=== PATIENT | female | born 1935 | race Caucasian/White ===

== ENCOUNTER 2018-03-01 12:49 | Emergency (ER) | payer MEDICARE, OTHER ==
--- NOTE | 2018-03-01 13:14 | ERPHSYRPT ---
- History of Present Illness Time Seen by Provider: 03/01/18 13:14 Source: patient Exam Limitations: no limitations Patient Subjective Stated Complaint: yesterday pt was leaning over to do something and states she heard adn felt a pop and now her left rib area is hurting, Triage Nursing Assessment: pt alert, resp easy, skin w/d/p. no increase of sob, no brusing or abrasions noted Physician History: The patient is an 82-year-old female with her daughter complaining that she felt well a pop in her left rib yesterday when she bent over to tie her shoe. She now has pain in her left rib area. It hurts to cough or take a deep breath. She is not short of breath. 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 Her past medical history is significant for rib fractures, A. fib, hypothyroidism, and CHF. Timing/Duration: yesterday Severity: moderate Modifying Factors: Improves With: movement Associated Symptoms: chest pain (rib pain) Allergies/Adverse Reactions: hydrocodone bitartrate [From Vicodin] Allergy (Severe, Verified 03/01/18 13:01) Itching Home Medications: Celecoxib 100 mg [celeBREX 100 MG] 250 mg PO DAILY 12/30/12 [History] Esomeprazole Magnesium [Nexium] 40 mg PO DAILY 12/30/12 [History] Levothyroxine Sodium 150 Mcg [Synthroid 150 Mcg] 150 mcg PO DAILY 12/30/12 [History] Nebivolol HCl 5 MG [Bystolic 5 MG] 5 mg PO DAILY 12/30/12 [History] Warfarin Sodium 5 mg [Coumadin 5 MG] 6 mg PO DAILY 12/30/12 [History] Hx Tetanus, Diphtheria Vaccination/Date Given: Yes Hx Influenza Vaccination/Date Given: Yes Hx Pneumococcal Vaccination/Date Given: Yes Immunizations Up to Date: Yes - Review of Systems Constitutional: No Fever, No Chills Eyes: No Symptoms Ears, Nose, & Throat: No Symptoms Respiratory: No Cough, No Dyspnea Cardiac: Chest Pain Abdominal/Gastrointestinal: No Abdominal Pain, No Nausea, No Vomiting, No Diarrhea Genitourinary Symptoms: No Dysuria Musculoskeletal: Injury, No Back Pain, No Neck Pain Skin: No Rash Neurological: No Dizziness, No Focal Weakness, No Sensory Changes Psychological: No Symptoms Endocrine: No Symptoms Hematologic/Lymphatic: No Symptoms Immunological/Allergic: No Symptoms All Other Systems: Reviewed and Negative - Past Medical History Pertinent Past Medical History: Yes Neurological History: No Pertinent History ENT History: No Pertinent History Cardiac History: Arrhythmia Respiratory History: COPD Endocrine Medical History: Hyperthyroidism Musculoskeletal History: Arthritis GI Medical History: GERD, Hernia History: No Pertinent History Psycho-Social History: No Pertinent History Female Reproductive Disorders: No Pertinent History Other Medical History: BROKEN BACK IN PAST - Past Surgical History Past Surgical History: Yes Neuro Surgical History: No Pertinent History Cardiac: No Pertinent History Respiratory: No Pertinent History Gastrointestinal: Cholecystectomy, Hernia Repair Genitourinary: No Pertinent History Musculoskeletal: Orthopedic Surgery, Other Female Surgical History: Hysterectomy Other Surgical History: THYROID REMOVED. SEVERAL HERNIA REPAIRS. RIGHT KNEE REPLACED. LEFT ARM FRACTURE - Social History Smoking Status: Never smoker Exposure to second hand smoke: No Drug Use: none Patient Lives Alone: No - Female History Hx Last Menstrual Period: post Hx Now: No - Nursing Vital Signs Nursing Vital Signs: Initial Vital Signs Temperature 97.3 F 03/01/18 12:55 Pulse Rate 91 H 03/01/18 12:55 Respiratory Rate 16 03/01/18 12:55 Blood Pressure 178/119 03/01/18 12:55 O2 Sat by Pulse Oximetry 97 03/01/18 12:55 Pain Scale Pain Intensity 5 - Physical Exam General Appearance: no apparent distress, alert Eye Exam: PERRL/EOMI, eyes nml inspection Ears, Nose, Throat Exam: normal ENT inspection, TMs normal, pharynx normal, moist mucous membranes Neck Exam: normal inspection, non-tender, supple, full range of motion Respiratory Exam: normal breath sounds, chest tenderness (left rib pain), lungs clear, No respiratory distress Cardiovascular Exam: regular rate/rhythm, normal heart sounds, normal peripheral pulses Gastrointestinal/Abdomen Exam: soft, normal bowel sounds, No tenderness, No mass Pelvic Exam: not done Rectal Exam: not done Back Exam: normal inspection, normal range of motion, No CVA tenderness, No vertebral tenderness Extremity Exam: normal inspection, normal range of motion, pelvis stable Neurologic Exam: alert, oriented x 3, cooperative, normal mood/affect, nml cerebellar function, nml station & gait, sensation nml, No motor deficits Skin Exam: normal color, warm, dry, No rash Lymphatic Exam: No adenopathy SpO2 Interpretation: normal SpO2: 97 Oxygen Delivery: Room Air - Radiology Exams Chest X-ray Interpretation: Reviewed by me, Teleradiologist Report (per Dr Estrada), Negative Left Ribs X-ray Interpretation: Reviewed by me, Teleradiologist Report (per Dr Estrada), Negative, No Fracture, No Subluxation Ordered Tests: Active Orders 24 hr Category Date Time Status CHEST 2 VIEWS (PA AND LAT) Stat Exams 03/01/18 13:22 Completed RIBS UNILATERAL Stat Exams 03/01/18 13:22 Completed - Progress Counseled pt/family regarding: rad results - Departure Time of Disposition: 14:06 Departure Disposition: Home Clinical Impression: Contusion of rib on left side Condition: Stable Critical Care Time: No Referrals: DAREN JAIN MD [Primary Care Provider] - Additional Instructions: You have left rib pain. The x-ray of your left ribs did not show any fractures or broken bones today. There may be a hairline fracture that doesn't show up on the x-ray today. If you still have pain after 7-10 days, follow-up with your primary medical doctor for a second set of x-rays. Take Percocet one tablet every 4-6 hours as needed for pain. Prescriptions: Oxycodone HCl/Acetaminophen [Percocet 5-325 mg Tablet] 1 each PO Q4-6HPRN PRN # 10 tablet MDD 6 PRN Reason: Pain
--- NOTE | 2018-03-01 14:00 | XRAY ---
Indication: Left anterior pain following injury. Comparison: None 2 views of the left ribs demonstrates osteopenia, moderate multilevel degenerative spondylosis, and moderate left shoulder degenerative arthropathy. No other bony, articular, or soft tissue abnormalities. Chest reported separately.
--- NOTE | 2018-03-01 14:04 | XRAY ---
Indication: Left anterior chest pain following injury. Comparison: None PA/lateral chest demonstrates scattered bilateral fibrosis/scarring, cardiomegaly, tortuous descending aorta, and small hiatal hernia. No other cardiopulmonary abnormalities. Bony thorax intact with mild osteopenia, moderate degenerative changes, and remote T12 superior endplate fracture. Impression: Nonacute chest with chronic features.
[2018-03-01 14:45] VITALS: BP 141/81; PULSE 65; O2SAT 95
== END 2018-03-01 14:45 | disposition home or self-care (01) ==
LOC: ED 12:49
DX: S20.212A Contusion of left front wall of thorax, initial encounter (principal); W18.39XA Other fall on same level, initial encounter; Y93.89 Activity, other specified; Z79.01 Long term (current) use of anticoagulants; Z79.899 Other long term (current) drug therapy
CPT/HCPCS: 71046; 71100; 99283

== ENCOUNTER 2018-06-03 13:59 | Emergency (ER) | payer MEDICARE, OTHER ==
[2018-06-03] MEDS ORDERED: SUBLIMAZE 100 MCG/2 ML IV ONE ×2 (15:06→18:03)
[2018-06-03] MEDS ORDERED: Zofran 4 MG/2 ML VIAL IV ONE (15:06)
--- NOTE | 2018-06-03 15:11 | ERPHSYRPT ---
- History of Present Illness Time Seen by Provider: 06/03/18 15:02 Historian: patient Exam Limitations: no limitations Physician History: Pt started c/o left flank pain, nausea 2 days ago, denies abdominal pain, chest pain, cough, SOB, diarrhea, urinary complaints or fever, chills. She denies fall , injury to her ribs. Timing/Duration: day(s) (2) Activities at Onset: none Quality: sharpness Abdominal Pain Onset Location: flank (left) Pain Radiation: no radiation Severity of Pain-Max: severe Severity of Pain-Current: severe Modifying Factors: Improves With: nothing Associated Symptoms: nausea Previous symptoms: no prior history Allergies/Adverse Reactions: hydrocodone bitartrate [From Vicodin] Allergy (Severe, Verified 06/03/18 15:14) Itching Home Medications: Celecoxib 100 mg [celeBREX 100 MG] 250 mg PO DAILY 12/30/12 [History] Esomeprazole Magnesium [Nexium] 40 mg PO DAILY 12/30/12 [History] Levothyroxine Sodium 150 Mcg [Synthroid 150 Mcg] 150 mcg PO DAILY 12/30/12 [History] Nebivolol HCl 5 MG [Bystolic 5 MG] 5 mg PO DAILY 12/30/12 [History] Warfarin Sodium 5 mg [Coumadin 5 MG] 6 mg PO DAILY 12/30/12 [History] Albuterol Sulfate Mdi [Proair Hfa MDI] 8.5 gm IH QID 06/03/18 [History] Budesonide/Formoterol Fumarate [Symbicort 160-4.5 Mcg Inhaler] 10.2 gm IH BID [History] Furosemide 40 mg [Lasix 40 MG] 20 mg PO BID 06/03/18 [History] Montelukast Sodium 10 mg [Singulair 10 MG] 10 mg PO DAILY 06/03/18 [History] Pravastatin Sodium 20 mg PO HS 06/03/18 [History] Hx Tetanus, Diphtheria Vaccination/Date Given: Yes Hx Influenza Vaccination/Date Given: Yes Hx Pneumococcal Vaccination/Date Given: Yes - Review of Systems Constitutional: No Symptoms Ears, Nose, & Throat: No Symptoms Respiratory: No Symptoms Cardiac: No Symptoms Abdominal/Gastrointestinal: Nausea Genitourinary Symptoms: Flank Pain (left) Musculoskeletal: No Symptoms Skin: No Symptoms Neurological: No Symptoms All Other Systems: Reviewed and Negative - Past Medical History Pertinent Past Medical History: Yes Neurological History: No Pertinent History ENT History: No Pertinent History Cardiac History: Arrhythmia Respiratory History: COPD Endocrine Medical History: Hyperthyroidism Musculoskeletal History: Arthritis GI Medical History: GERD, Hernia History: No Pertinent History Psycho-Social History: No Pertinent History Female Reproductive Disorders: No Pertinent History Other Medical History: BROKEN BACK IN PAST - Past Surgical History Past Surgical History: Yes Neuro Surgical History: No Pertinent History Cardiac: No Pertinent History Respiratory: No Pertinent History Gastrointestinal: Cholecystectomy, Hernia Repair Genitourinary: No Pertinent History Musculoskeletal: Orthopedic Surgery, Other Female Surgical History: Hysterectomy Other Surgical History: THYROID REMOVED. SEVERAL HERNIA REPAIRS. RIGHT KNEE REPLACED. LEFT ARM FRACTURE - Social History Smoking Status: Never smoker Exposure to second hand smoke: No Drug Use: none Patient Lives Alone: No - Nursing Vital Signs Nursing Vital Signs: Initial Vital Signs Temperature 98.3 F 06/03/18 15:03 Pulse Rate 78 06/03/18 15:03 Respiratory Rate 22 06/03/18 15:03 Blood Pressure 150/84 06/03/18 15:03 O2 Sat by Pulse Oximetry 93 L 06/03/18 15:03 Pain Scale Pain Intensity 5 - Physical Exam General Appearance: no apparent distress Eye Exam: eyes nml inspection Ears, Nose, Throat Exam: normal ENT inspection, moist mucous membranes Neck Exam: normal inspection, non-tender, supple, No JVD Respiratory Exam: normal breath sounds, lungs clear, airway intact, No chest tenderness, No respiratory distress Cardiovascular Exam: regular rate/rhythm, normal heart sounds, normal peripheral pulses, No murmur Gastrointestinal/Abdomen Exam: soft, normal bowel sounds, No tenderness, No distention, No mass, No guarding, No ecchymosis, No pulsatile mass, No rebound, No hernia, No organomegaly Back Exam: normal inspection, CVA tenderness (left, mod. severe), No vertebral tenderness, No rash Extremity Exam: normal inspection, pelvis stable Neurologic Exam: alert, oriented x 3, normal mood/affect Skin Exam: normal color, warm, dry, No rash, No petechiae, No cyanosis Lymphatic Exam: No adenopathy SpO2 Interpretation: normal O2 Delivery: Room Air - Course Nursing assessment & vital signs reviewed: Yes EKG Interpreted by Me: RATE (76/min), NORMAL AXIS, NORMAL INTERVALS, NORMAL QRS , Non-specific ST Changes - Radiology Exams Chest X-ray Interpretation: Interpreted by me, Negative - CT Exams Abdomen/Pelvis CT Interpretation: Tele-radiologist Report, Other (left perinephric strainding, without nephrolithiasis or hydronephrosis, swlling of the pancreatic tale) Ordered Tests: Active Orders 24 hr Category Date Time Status EKG-ER Only STAT Care 06/03/18 15:06 Active IV Insertion STAT Care 06/03/18 15:06 Active ABDOMEN AND PELVIS W/0 CONTRAS [CT] Stat Exams 06/03/18 15:07 Completed CHEST 1 VIEW (PORTABLE) Stat Exams 06/03/18 15:06 Completed CBC W DIFF Stat Lab 06/03/18 15:54 Completed CMP Stat Lab 06/03/18 15:54 Completed CULTURE,URINE Stat Lab 06/03/18 15:22 Received LIPASE Stat Lab 06/03/18 15:54 Completed Lactic Acid Stat Lab 06/03/18 16:52 Completed PROTIME WITH INR Stat Lab 06/03/18 15:54 Completed TROPONIN Q3H Lab 06/03/18 15:54 Completed TROPONIN Q3H Lab 06/03/18 18:15 Ordered TROPONIN Q3H Lab 06/03/18 21:15 Ordered TROPONIN Q3H Lab 06/04/18 00:15 Ordered TROPONIN Q3H Lab 06/04/18 03:15 Ordered UA W/RFX UR CULTURE Stat Lab 06/03/18 15:22 Completed Medication Summary Generic Name Dose Route Start Last Admin Trade Name Freq PRN Reason Stop Dose Admin Acetaminophen/Codeine Phosphate 5 ml 06/03/18 17:38 Tylenol W/ Codeine 5 Ml Ud Cup PO 06/03/18 17:39 STAT ONE Sodium Chloride 1,000 mls @ 100 mls/hr 06/03/18 15:15 06/03/18 16:13 Sodium Chloride 0.9% 1000 Ml IV 07/03/18 15:14 100 mls/hr .Q10H BETO Administration Discontinued Medications Generic Name Dose Route Start Last Admin Trade Name Freq PRN Reason Stop Dose Admin Fentanyl Citrate 50 mcg 06/03/18 15:06 06/03/18 16:12 Sublimaze 100 Mcg/2 Ml IV 04/07/19 15:07 50 mcg STAT ONE Administration Fentanyl Citrate Confirm 06/03/18 16:05 Sublimaze 100 Mcg/2 Ml Administered 06/03/18 16:06 Dose 100 mcg .ROUTE .STK-MED ONE Ceftriaxone Sodium/Dextrose 1 g in 50 mls @ 100 mls/hr 06/03/18 16:43 17:02 Rocephin 1 Gm-D5w 50 Ml Bag IV 06/03/18 17:12 100 ml/hr STAT STA 100 mls/hr Administration Ceftriaxone Sodium/Dextrose Confirm 06/03/18 16:54 Rocephin 1 Gm-D5w 50 Ml Bag Administered 06/03/18 16:55 Dose 1 g in 50 mls @ ud IV .STK-MED ONE Ondansetron HCl 4 mg 06/03/18 15:06 06/03/18 16:14 Zofran 4 Mg/2 Ml Vial IV 06/03/18 15:07 4 mg STAT ONE Administration Ondansetron HCl Confirm 06/03/18 16:04 Zofran 4 Mg/2 Ml Vial Administered 06/03/18 16:05 Dose 4 mg .ROUTE .STK-MED ONE Lab/Rad Data: Laboratory Result Diagrams 06/03/18 15:54 06/03/18 15:54 Laboratory Results 06/03/18 06/03/18 06/03/18 Range/Units 16:52 15:54 15:54 WBC (4.0-10.5) K/mm3 RBC (4.1-5.4) M/mm3 Hgb (12.0-16.0) gm/dl Hct (35-47) % MCV (78-100) fl MCH (26-32) pg MCHC (32-36) g/dl RDW (11.5-14.0) % Plt Count (150-450) K/mm3 MPV (6-9.5) fl Gran % (36.0-66.0) % Eos # (Auto) (0-0.5) Absolute Lymphs (auto) (1.0-4.6) Absolute Monos (auto) (0.0-1.3) Lymphocytes % (24.0-44.0) % Monocytes % (0.0-12.0) % Eosinophils % (0.00-5.0) % Basophils % (0.0-0.4) % Absolute Granulocytes (1.4-6.9) Basophils # (0-0.4) PT 26.6 H (9.95-12.35) SECONDS INR 2.27 (0.8-3.0) Sodium (137-145) mmol/L Potassium (3.5-5.1) mmol/L Chloride (98-107) mmol/L Carbon Dioxide (22-30) mmol/L Anion Gap (5-15) MEQ/L BUN (7-17) mg/dL Creatinine (0.52-1.04) mg/dL Estimated GFR ML/MIN Glucose (74-106) mg/dL Lactic Acid 1.6 (0.4-2.0) Calcium (8.4-10.2) mg/dL Total Bilirubin (0.2-1.3) mg/dL AST (14-36) U/L ALT (0-35) U/L Alkaline Phosphatase (38-126) U/L Troponin I < 0.012 (0.000-0.034) ng/mL Serum Total Protein (6.3-8.2) g/dL Albumin (3.5-5.0) g/dL Lipase (23-300) U/L Urine Color (YELLOW) Urine Appearance (CLEAR) Urine pH (5-6) Ur Specific [place] (1.005-1.025) Urine Protein (Negative) Urine Ketones (NEGATIVE) Urine Blood (0-5) [place]/ul Urine Nitrite (NEGATIVE) Urine Bilirubin (NEGATIVE) Urine Urobilinogen (0-1) mg/dL Ur Leukocyte Esterase (NEGATIVE) Urine WBC (Auto) (0-5) /HPF Urine RBC (Auto) (0-2) /HPF U Epithel Cells (Auto) (FEW) /HPF Urine Bacteria (Auto) (NEGATIVE) /HPF Urine Mucus (Auto) (NEGATIVE) /HPF Urine Culture Reflexed (NO) Urine Glucose (NEGATIVE) mg/dL 06/03/18 06/03/18 06/03/18 Range/Units 15:54 15:54 15:22 WBC 16.1 H (4.0-10.5) K/mm3 RBC 4.65 (4.1-5.4) M/mm3 Hgb 14.7 (12.0-16.0) gm/dl Hct 44.7 (35-47) % MCV 96.1 (78-100) fl MCH 31.6 (26-32) pg MCHC 32.9 (32-36) g/dl RDW 13.5 (11.5-14.0) % Plt Count 206 (150-450) K/mm3 MPV 10.6 H (6-9.5) fl Gran % 87.2 H (36.0-66.0) % Eos # (Auto) 0.02 (0-0.5) Absolute Lymphs (auto) 0.87 L (1.0-4.6) Absolute Monos (auto) 1.14 (0.0-1.3) Lymphocytes % 5.4 L (24.0-44.0) % Monocytes % 7.1 (0.0-12.0) % Eosinophils % 0.1 (0.00-5.0) % Basophils % 0.2 (0.0-0.4) % Absolute Granulocytes 13.99 H (1.4-6.9) Basophils # 0.03 (0-0.4) PT (9.95-12.35) SECONDS INR (0.8-3.0) Sodium 135 L (137-145) mmol/L Potassium 4.3 (3.5-5.1) mmol/L Chloride 99 (98-107) mmol/L Carbon Dioxide 28 (22-30) mmol/L Anion Gap 12.1 (5-15) MEQ/L BUN 14 (7-17) mg/dL Creatinine 0.63 (0.52-1.04) mg/dL Estimated GFR > 60.0 ML/MIN Glucose 94 (74-106) mg/dL Lactic Acid (0.4-2.0) Calcium 9.4 (8.4-10.2) mg/dL Total Bilirubin 1.90 H (0.2-1.3) mg/dL AST 24 (14-36) U/L ALT 10 (0-35) U/L Alkaline Phosphatase 64 (38-126) U/L Troponin I (0.000-0.034) ng/mL Serum Total Protein 8.1 (6.3-8.2) g/dL Albumin 4.3 (3.5-5.0) g/dL Lipase 302 H (23-300) U/L Urine Color DARK YELLOW (YELLOW) Urine Appearance SLIGHTLY CLOUDY (CLEAR) Urine pH 6.0 (5-6) Ur Specific [place] 1.023 (1.005-1.025) Urine Protein 100 (Negative) Urine Ketones SMALL (NEGATIVE) Urine Blood MODERATE (0-5) [place]/ul Urine Nitrite POSITIVE (NEGATIVE) Urine Bilirubin NEGATIVE (NEGATIVE) Urine Urobilinogen 4 (0-1) mg/dL Ur Leukocyte Esterase TRACE (NEGATIVE) Urine WBC (Auto) 26-50 (0-5) /HPF Urine RBC (Auto) 16-25 (0-2) /HPF U Epithel Cells (Auto) RARE (FEW) /HPF Urine Bacteria (Auto) PACKED (NEGATIVE) /HPF Urine Mucus (Auto) SLIGHT (NEGATIVE) /HPF Urine Culture Reflexed YES (NO) Urine Glucose NEGATIVE (NEGATIVE) mg/dL - Progress Progress: improved Progress Note: 06/03/18 17:39 Pt states, improved, nausea resolved pain subsided, not febrile, she was given iv saline bolus and Rocephin, called Dr Campos, discussed this case with him with her current condition, he agreed to discharge her and follow up with Dr Jain in 2-3 days, advised liquid diet, rest x 2-3 barton. Discussed with : Andres Will see patient in: office Counseled pt/family regarding: lab results, diagnosis, need for follow-up, rad results - Departure Departure Disposition: Home Clinical Impression: Pyelonephritis Condition: Stable Critical Care Time: No Referrals: DAREN JAIN MD [Primary Care Provider] - Instructions: Urinary Tract Infection, Adult (DC) Additional Instructions: Rest x 2-3 days, drink plenty of fluids, and follow up with your physician in 2- 3 days, return if severe pain, vomiting, fever> 102 F! Prescriptions: Ondansetron ODT 4 MG [Zofran Odt 4 mg] 4 mg PO Q6H PRN PRN #10 tab.rapdis PRN Reason: Nausea/Vomiting Acetaminophen with Codeine [Tylenol with Codeine #3 Tablet] 1 each PO Q6H PRN # 10 tablet PRN Reason: Pain Cephalexin Mh 500 mg [Keflex 500 mg] 500 mg PO Q6H 7 Days #28 capsule
[2018-06-03] MEDS ORDERED: Sodium Chloride 0.9% 1000 ML 1,000 ML IV SCH (15:15)
[2018-06-03 15:32] LABS: Appearance SLIGHTLY CLOUDY (CLEAR); Bacteria PACKED /HPF (NEGATIVE); Bilirubin NEGATIVE (NEGATIVE); Blood MODERATE Ery/ul (0-5); Epithelial Cells RARE /HPF (FEW); Glucose NEGATIVE (NEGATIVE); Ketones SMALL (NEGATIVE); Leukocyte Esterase TRACE (NEGATIVE); Mucus SLIGHT /HPF (NEGATIVE); Nitrite POSITIVE (NEGATIVE); Protein,Urine Dip 100 (Negative); Specific Gravity 1.023 (1.005-1.025); Urobilinogen 4 mg/dL (0-1); WBC 26-50 /HPF (0-5)
[2018-06-03 15:56] LABS: BASOPHIL % 0.2 % (0.0-0.4); Basophil (Absolute #) 0.03 (0-0.4); Eosinophil % 0.1 % (0.00-5.0); Eosinophil (Absolute #) 0.02 (0-0.5); Granulocyte Absolute (ANC) 13.99 (1.4-6.9); Granulocytes % 87.2 % (36.0-66.0); Hematocrit 44.7 % (35-47); Hemoglobin 14.7 gm/dl (12.0-16.0); Lymphocyte (Absolute #) 0.87 (1.0-4.6); Lymphocytes % 5.4 % (24.0-44.0); Mean Cell Volume 96.1 fl (78-100); Mean Corpuscular Hemoglobin 31.6 pg (26-32); Mean Corpuscular Hgb Concent. 32.9 g/dl (32-36); Mean Platelet Volume 10.6 fl (6-9.5); Monocyte (Absolute #) 1.14 (0.0-1.3); Monocytes % 7.1 % (0.0-12.0); Platelet Count 206 K/mm3 (150-450); Red Blood Count 4.65 M/mm3 (4.1-5.4); Red Cell Distribution Width 13.5 % (11.5-14.0); White Blood Count 16.1 K/mm3 (4.0-10.5)
[2018-06-03 16:01] LABS: INR 2.27 (0.8-3.0); PROTIME 26.6 SECONDS (9.95-12.35)
[2018-06-03] MEDS ORDERED: Zofran 4 MG/2 ML VIAL ONE (16:04)
[2018-06-03] MEDS ORDERED: SUBLIMAZE 100 MCG/2 ML ONE ×2 (16:05→18:07)
[2018-06-03] MEDS ORDERED: Sodium Chloride 0.9% 1000 ML 1,000 ML ONE (16:05)
[2018-06-03 16:07] LABS: ALBUMIN 4.3 g/dL (3.5-5.0); ALKALINE PHOSPHATASE 64 U/L (38-126); ANION GAP 12.1 MEQ/L (5-15); BLOOD UREA NITROGEN 14 mg/dL (7-17); CHLORIDE 99 mmol/L (98-107); Calcium 9.4 mg/dL (8.4-10.2); Carbon Dioxide 28 mmol/L (22-30); Creatinine 1 0.63 mg/dL (0.52-1.04); Glucose 94 mg/dL (74-106); LIPASE 302 U/L (23-300); Potassium 4.3 mmol/L (3.5-5.1); SGOT/AST 24 U/L (14-36); SGPT/ALT 10 U/L (0-35); SODIUM 135 mmol/L (137-145); Total Protein 8.1 g/dL (6.3-8.2)
[2018-06-03] MEDS ORDERED: ROCEPHIN 1 Gm-D5w 50 ml Bag** 1 G/50 ML IVPB IV STA (16:43)
[2018-06-03] MEDS ORDERED: ROCEPHIN 1 Gm-D5w 50 ml Bag** 1 G/50 ML IVPB IV ONE (16:54)
--- NOTE | 2018-06-03 16:55 | XRAY ---
Indication: Abdomen pain. Left flank pain. Multiple contiguous axial images obtained through the abdomen and pelvis without contrast as ordered. Comparison: June 25, 2009. Lung bases demonstrates bibasilar atelectasis/scarring. No infiltrate or effusion. Heart is enlarged. Stable moderate sized hiatal hernia with partial intrathoracic stomach. Noncontrasted stomach and bowel loops appear nonobstructed. Again mild diffuse scattered colonic fecal debris throughout. Previous appendectomy, hysterectomy, and cholecystectomy. Tail of the pancreas demonstrates new peripancreatic stranding favoring pancreatitis. Tiny left colic free fluid. No walled off fluid collection or free air. Remaining liver, spleen, adrenal glands, kidneys, ureters, and bladder appear unremarkable for noncontrast exam. Mild aortoiliac calcifications without AAA. Osseous structures intact again with moderate degenerative changes throughout the spine. Stable mild T12 compression deformity. Again previous ventral hernia repair. The remains midline ventral hernia just inferior to the hernia mesh graft with herniated omental fat and small bowel loop without complications. Impression: 1. New finding acute pancreatitis involving the tail of the pancreas with tiny left colic fluid. 2. Again fecal stasis without obstruction. 3. Stable moderate sized hiatal hernia, lower abdomen ventral hernia, and cardiomegaly. Comment: Preliminary interpretation was made by [facility]. No critical discrepancy. CTDI 23.68
--- NOTE | 2018-06-03 16:56 | XRAY ---
Indication: Abdomen pain. Comparison: March 01, 2018. Portable chest demonstrates stable cardiomegaly, bibasilar fibrosis/scarring, tortuous descending aorta, and hiatal hernia. Bony thorax again demonstrates osteopenia, degenerative changes, and remote T12 compression performed. No new/acute findings. Impression: Stable nonacute chest with chronic features.
[2018-06-03 17:04] VITALS: PULSE 73
[2018-06-03] MEDS ORDERED: TYLENOL W/ CODEINE 5 ML UD CUP PO ONE (17:38)
[2018-06-03] MEDS ORDERED: ZOFRAN ODT 4 MG PO ONE (17:38)
[2018-06-03] MEDS ORDERED: ZOFRAN ODT 4 MG ONE (17:52)
[2018-06-03] MEDS ORDERED: TYLENOL W/ CODEINE 5 ML UD CUP ONE (17:53)
[2018-06-03 18:05] VITALS: BP 133/82; O2SAT 96
== END 2018-06-03 18:41 | disposition home or self-care (01) ==
LOC: ED 13:59
DX: N12 Tubulo-interstitial nephritis, not specified as acute or chronic (principal); J44.9 Chronic obstructive pulmonary disease, unspecified; E05.90 Thyrotoxicosis, unspecified without thyrotoxic crisis or storm; M19.90 Unspecified osteoarthritis, unspecified site; K21.9 Gastro-esophageal reflux disease without esophagitis; Z79.01 Long term (current) use of anticoagulants; Z79.899 Other long term (current) drug therapy
CPT/HCPCS: 36000; 36415; 71045; 74176; 80053; 81001; 83605; 83690; 84484; 85025; 85610; 87077; 87086; 87186; 93005; 96360; 96361; 96365; 96374; 96375; 96376; 99285; J0696; J2405; J3010; Q0162; A9270-GY

== ENCOUNTER 2020-01-09 14:00 | Emergency (ER) | payer MEDICARE, OTHER ==
[2020-01-09 14:13] VITALS: PULSE 88
--- NOTE | 2020-01-09 14:45 | XRAY ---
Indication: Pain following fall. Comparison: None 3 view left wrist demonstrates distal radius comminuted displaced fracture with intra-articular extension. Elsewhere osteopenia, old nonunited ulnar styloid fracture, and degenerative changes of all MCP/IP joints including base 1st metacarpal.
--- NOTE | 2020-01-09 14:59 | ERPHSYRPT ---
- History of Present Illness Time Seen by Provider: 01/09/20 14:20 Source: patient ([id number]) Exam Limitations: no limitations Patient Subjective Stated Complaint: Pt states "I went to step up and there was no hand rails and I fell. I tried to catch myself with my left arm and now my left wrist" Triage Nursing Assessment: PT presented alert and oriented X 3, skin pwd. Pt ambulates with an uprigth steady gait, able to speak in clear full sentences. Pt has tenderness noted to left wrist, CSM X 4 Physician History: Patient is a 84-year-old female presents to our ED with complaints of left wrist pain. Patient states she was at her friend's house. She was descending steps. There were no hand rails. Patient lost her balance and fell. The fall was not associated with any neuro or cardiovascular symptomology. No numbness tingling or weakness. No chest pain or shortness of breath. No nausea vomiting or diaphoresis. Patient complains of pain to her left wrist. Pain is well localized. No radiation. Pain described as an ache. Pain reproduced with movement and palpation. Pain improved with rest. There is no associated BHT or LOC. No neck pain. Cervical spine cleared clinically. Patient ambulatory aft er fall. She voices no other complaints concerns at this time. Occurred: just prior to arrival Method of Injury: fell Quality: constant Severity of Pain-Max: moderate Severity of Pain-Current: mild Extremities Pain Location: wrist: left Modifying Factors: Improves With: movement Associated Symptoms: none, No chills, No chest discomfort, No chest pain, No dyspnea, No fever, No jaw pain, No nausea, No neck pain, No sweating, No short of breath, No vomiting Allergies/Adverse Reactions: hydrocodone bitartrate [From Vicodin] Allergy (Severe, Verified 06/03/18 15:14) Itching Home Medications: Celecoxib 100 mg [celeBREX 100 MG] 250 mg PO DAILY 12/30/12 [History] Esomeprazole Magnesium [Nexium] 40 mg PO DAILY 12/30/12 [History] Levothyroxine Sodium 150 Mcg [Synthroid 150 Mcg] 150 mcg PO DAILY 12/30/12 [History] Nebivolol HCl 5 MG [Bystolic 5 MG] 5 mg PO DAILY 12/30/12 [History] Warfarin Sodium 5 mg [Coumadin 5 MG] 6 mg PO DAILY 12/30/12 [History] Albuterol Sulfate Mdi [Proair Hfa MDI] 8.5 gm IH QID 06/03/18 [History] Budesonide/Formoterol Fumarate [Symbicort 160-4.5 Mcg Inhaler] 10.2 gm IH BID 06/03/18 [History] Furosemide 40 mg [Lasix 40 MG] 20 mg PO BID 06/03/18 [History] Montelukast Sodium 10 mg [Singulair 10 MG] 10 mg PO DAILY 06/03/18 [History] Pravastatin Sodium 20 mg PO HS 06/03/18 [History] Hx Tetanus, Diphtheria Vaccination/Date Given: No Hx Influenza Vaccination/Date Given: Yes Hx Pneumococcal Vaccination/Date Given: Yes Immunizations Up to Date: Yes Travel Risk - International Travel Have you traveled outside of the country in past 3 weeks: No - Coronavirus Screening Close contact with a COVID-19 positive Pt in past 14-21 Days: No - Review of Systems Constitutional: No Symptoms, No Fever, No Chills Eyes: No Symptoms Ears, Nose, & Throat: No Symptoms Respiratory: No Symptoms, No Cough, No Dyspnea Cardiac: No Symptoms, No Chest Pain, No Edema, No Syncope Abdominal/Gastrointestinal: No Symptoms, No Abdominal Pain, No Nausea, No Vomiting, No Diarrhea Genitourinary Symptoms: No Symptoms, No Dysuria Musculoskeletal: No Symptoms, No Back Pain, No Neck Pain Skin: No Symptoms, No Rash Neurological: No Symptoms, No Dizziness, No Focal Weakness, No Sensory Changes Psychological: No Symptoms Endocrine: No Symptoms Hematologic/Lymphatic: No Symptoms Immunological/Allergic: No Symptoms All Other Systems: Reviewed and Negative - Past Medical History Pertinent Past Medical History: Yes Neurological History: No Pertinent History ENT History: No Pertinent History Cardiac History: Arrhythmia Respiratory History: COPD Endocrine Medical History: Hyperthyroidism Musculoskeletal History: Arthritis GI Medical History: GERD, Hernia History: No Pertinent History Psycho-Social History: No Pertinent History Female Reproductive Disorders: No Pertinent History Other Medical History: BROKEN BACK IN PAST - Past Surgical History Past Surgical History: Yes Neuro Surgical History: No Pertinent History Cardiac: No Pertinent History Respiratory: No Pertinent History Gastrointestinal: Cholecystectomy, Hernia Repair Genitourinary: No Pertinent History Musculoskeletal: Orthopedic Surgery, Other Female Surgical History: Hysterectomy Other Surgical History: THYROID REMOVED. SEVERAL HERNIA REPAIRS. RIGHT KNEE REPLACED. LEFT ARM FRACTURE - Social History Smoking Status: Never smoker Exposure to second hand smoke: No Drug Use: none Patient Lives Alone: Yes - Female History Hx Now: No - Nursing Vital Signs Nursing Vital Signs: Initial Vital Signs Temperature 96.2 F 01/09/20 14:07 Pulse Rate 88 01/09/20 14:07 Respiratory Rate 22 01/09/20 14:07 Blood Pressure 181/86 01/09/20 14:07 O2 Sat by Pulse Oximetry 95 01/09/20 14:07 Pain Scale Pain Intensity 4 - Physical Exam General Appearance: alert Eyes, Ears, Nose, Throat Exam: moist mucous membranes Neck Exam: non-tender, supple Cardiovascular/Respiratory Exam: chest non-tender, normal breath sounds, regular rate/rhythm, no respiratory distress Abdominal Exam: non-tender, soft, No guarding Back Exam: normal inspection, No vertebral tenderness Shoulder Exam: normal inspection, non-tender, no evidence of injury, normal ROM Elbow/Forearm Exam: normal inspection, non-tender, no evidence of injury, normal ROM Wrist Exam: normal inspection, bone tenderness, deformity, limited ROM, pain, swelling Hand Exam: normal inspection, non-tender, no evidence of injury, normal ROM Neuro/Tendon Exam: normal sensation, normal motor functions, normal tendon functions Mental Status Exam: alert, oriented x 3, cooperative, No agitated Skin Exam: normal color, warm, dry SpO2 Interpretation: normal SpO2: 95 O2 Delivery: Room Air - Course Nursing assessment & vital signs reviewed: Yes - Radiology Exams Left Wrist X-ray Interpretation: Teleradiologist Report (Comminuted displaced fracture with intra-articular extension. Osteopenia old nonunited ulnar styloid fracture and degenerative changes of all MCP IP joints including base of first metacarpal) Ordered Tests: Active Orders 24 hr Category Date Time Status WRIST (MIN 3 VIEWS) Stat Exams 01/09/20 14:17 Completed - Progress Progress: improved Progress Note: 01/09/20 15:07 Patient reassessed. Pain improved. Patient has a comminuted fracture with intra-articular extension of her left wrist. There is displacement. Osteopenia observed on x-ray. Patient received Toradol for pain. Patient placed in a left sugar tong splint. A sling was provided. A referral for orthopedics was provided to patient. Patient to see orthopedic surgery tomorrow. Patient denied any other injury. Patient requesting discharge. Will discharge home as planned. 01/09/20 15:13 patient neurovascular intact distally post splint application. Counseled pt/family regarding: diagnosis, need for follow-up, rad results - Departure Departure Disposition: Home Clinical Impression: Wrist fracture, left, Fall Condition: Stable Critical Care Time: No Referrals: DAREN JAIN MD [Primary Care Provider] - Additional Instructions: Discharge/Care Plan BIGG HIDALGO was seen on 01/09/20 in the Emergency Room. The patient was counseled regarding Diagnosis,Lab results, Imaging studies, need for follow up and when to return to the Emergency Room. Prescriptions given: Discharge Note I have spoken with the patient and/or caregivers. I have explained the patient's condition, diagnosis and treatment plan based on the information available to me at this time. I have answered the patient's and/or caregiver's questions and addressed any concerns. The patient and/or caregivers have as good understanding of the patient's diagnosis, condition and treatment plan as can be expected at this point. The vital signs have been stable. The patient's condition is stable and appropriate for discharge from the emergency department. The patient will pursue further outpatient evaluation with the primary care physician or other designated or consulting physician as outlined in the discharge instructions. The patient and/or caregivers are agreeable to this plan of care and follow-up instructions have been explained in detail. The patient and/or caregivers have received these instruction. The patient/and or caregivers are aware that any significant change in condition or worsening of symptoms should prompt an immediate return to this or the closest emergency department or call 911. Outpatient Orders: Ortho Referral Time Frame: 1 Day, Facility: [facility], Location: ORTHO CLINIC
[2020-01-09] MEDS ORDERED: TORAdol 30 mg Injection IM ONE (15:05)
[2020-01-09] MEDS ORDERED: TORAdol 30 mg Injection ONE (15:06)
[2020-01-09 15:27] VITALS: BP 168/80; O2SAT 98
== END 2020-01-09 15:36 | disposition home or self-care (01) ==
LOC: ED 14:00
DX: S52.502A Unspecified fracture of the lower end of left radius, initial encounter for closed fracture (principal); M25.532 Pain in left wrist; W10.8XXA Fall (on) (from) other stairs and steps, initial encounter; Z79.01 Long term (current) use of anticoagulants; J44.9 Chronic obstructive pulmonary disease, unspecified; E03.9 Hypothyroidism, unspecified
CPT/HCPCS: 73110; 96372; 99284; J1885

== ENCOUNTER 2021-08-31 14:54 | Emergency (ER) | payer MEDICARE, OTHER ==
[2021-08-31 15:41] LABS: Absolute Neutrophil Ct (ANC) 2.04 x10^3/uL (1.4-6.9); Basophil (Absolute #) 0.01 x10^3/uL (0-0.4); Eosinophil % 0.5 % (0.00-5.0); Eosinophil (Absolute #) 0.02 x10^3/uL (0-0.5); Hematocrit 40.7 % (35-47); Hemoglobin 13.3 g/dL (12.0-16.0); Lymphocyte (Absolute #) 1.28 x10^3/uL (1.0-4.6); Lymphocytes % 33.9 % (24.0-44.0); Mean Corpuscular Hemoglobin 31.4 pg (26-32); Mean Corpuscular Hgb Concent. 32.7 g/dL (32-36); Mean Platelet Volume 10.3 fL (7.5-11.0); Monocytes % 10.6 % (0.0-12.0); Neutrophil % 53.9 % (36.0-66.0); Platelet Count 150 x10^3/uL (150-450); Red Blood Count 4.24 x10^6/uL (4.1-5.4); Red Cell Distribution Width 13.3 % (11.5-14.0); White Blood Count 3.8 x10^3/uL (4.0-10.5)
--- NOTE | 2021-08-31 15:43 | ERPHSYRPT ---
- History of Present Illness Time Seen by Provider: 08/31/21 15:20 Source: patient Exam Limitations: no limitations Patient Subjective Stated Complaint: C/O increased SOB in the past few hours today at home. Also c/o "fullness in my ears." Denies any pain. Triage Nursing Assessment: Patient brought back to ED in a W/C. She is alert and oriented and answering questions appropriately. Occ non-productive cough noted but patient indicates that this isn't new. Lungs clear with right side diminished. Patient did not appear to be in any respiratory distress upon arrival to ED. Physician History: This is an 86-year-old white female patient of Dr. Jain who presents with relatively sudden shortness of breath a few hours prior to arrival. She also has head congestion and nasal congestion. She has a cough that his chronic and unchanged per her report. Patient does see a strapping machine tender because she has a history of atrial fibrillation. She is on Coumadin as well. Patient has a history of hypothyroidism, COPD, hypertension, and elevated cholesterol. She has not had a fever. She has no nausea vomiting or diarrhea. She denies chest pain. Symptoms of shortness of breath are now at baseline on arrival to emerge ncy department Timing/Duration: today Activities at Onset: none Severity of Dyspnea-Max: moderate Severity of Dyspnea-Current: mild Possible Cause: occasional episodes Modifying Factors: Improves With: activity, coughing Associated Symptoms: cough, No chest pain/discomfort, No weakness Allergies/Adverse Reactions: hydrocodone bitartrate [From Vicodin] Allergy (Severe, Verified 08/31/21 14:59) Itching Home Medications: Celecoxib 100 mg [celeBREX 100 MG] 250 mg PO DAILY 12/30/12 [History] Esomeprazole Magnesium [Nexium] 40 mg PO DAILY 12/30/12 [History] Levothyroxine Sodium 150 Mcg [Synthroid 150 Mcg] 150 mcg PO DAILY 12/30/12 [History] Nebivolol HCl 5 MG [Bystolic 5 MG] 5 mg PO DAILY 12/30/12 [History] Warfarin Sodium 5 mg [Coumadin 5 MG] 8 mg PO DAILY 12/30/12 [History] Albuterol Sulfate Mdi [Proair Hfa MDI] 8.5 gm IH QID 06/03/18 [History] Budesonide/Formoterol Fumarate [Symbicort 160-4.5 Mcg Inhaler] 10.2 gm IH BID 06/03/18 [History] Furosemide 40 mg [Lasix 40 MG] 20 mg PO BID 06/03/18 [History] Montelukast Sodium 10 mg [Singulair 10 MG] 10 mg PO DAILY 06/03/18 [History] Pravastatin Sodium 20 mg PO HS 06/03/18 [History] Hx Tetanus, Diphtheria Vaccination/Date Given: Yes Hx Influenza Vaccination/Date Given: Yes Hx Pneumococcal Vaccination/Date Given: No (States due for one) Immunizations Up to Date: Yes Travel Risk - International Travel Have you traveled outside of the country in past 3 weeks: No - Coronavirus Screening Are you exhibiting any of the following symptoms?: Yes Symptoms: Shortness of Breath Close contact with a COVID-19 positive Pt in past 14-21 Days: No - Vaccine Status Have you recieved a Covid-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[employer]: [employer] - Vaccination Dates Date of 2cond Vaccination (if applicable): 2020 - Review of Systems Constitutional: No Symptoms Eyes: No Symptoms Ears, Nose, & Throat: Nose Congestion Respiratory: Cough, Dyspnea (Mild) Cardiac: No Symptoms Abdominal/Gastrointestinal: No Symptoms Genitourinary Symptoms: No Symptoms Musculoskeletal: No Symptoms Skin: No Symptoms Neurological: No Symptoms Psychological: No Symptoms Endocrine: No Symptoms Hematologic/Lymphatic: No Symptoms Immunological/Allergic: No Symptoms All Other Systems: Reviewed and Negative - Past Medical History Pertinent Past Medical History: Yes Neurological History: No Pertinent History ENT History: No Pertinent History Cardiac History: Arrhythmia, High Cholesterol Respiratory History: COPD Endocrine Medical History: Hyperthyroidism Musculoskeletal History: Arthritis GI Medical History: GERD, Hernia History: No Pertinent History Psycho-Social History: No Pertinent History Female Reproductive Disorders: No Pertinent History Other Medical History: BROKEN BACK IN PAST - Past Surgical History Past Surgical History: Yes Neuro Surgical History: No Pertinent History Cardiac: No Pertinent History Respiratory: No Pertinent History Gastrointestinal: Cholecystectomy, Hernia Repair Genitourinary: No Pertinent History Musculoskeletal: Orthopedic Surgery, Other Female Surgical History: Hysterectomy Other Surgical History: THYROID REMOVED. SEVERAL HERNIA REPAIRS. RIGHT KNEE REPLACED. LEFT ARM FRACTURE - Social History Smoking Status: Never smoker Exposure to second hand smoke: No Drug Use: none Patient Lives Alone: Yes - Nursing Vital Signs Nursing Vital Signs: Initial Vital Signs Temperature 98.7 F 08/31/21 15:00 Pulse Rate 92 H 08/31/21 15:00 Respiratory Rate 20 08/31/21 15:00 Blood Pressure 147/100 08/31/21 15:00 O2 Sat by Pulse Oximetry 95 08/31/21 15:00 Pain Scale Pain Intensity 0 - Physical Exam General Appearance: no apparent distress, alert, anxiety, obese Eye Exam: PERRL/EOMI, eyes nml inspection Ears, Nose, Throat Exam: hearing grossly normal, normal ENT inspection, normal pharynx Neck Exam: normal inspection, non-tender, supple, full range of motion Respiratory Exam: normal breath sounds, lungs clear, airway intact, No chest tenderness, No respiratory distress Cardiovascular/Chest Exam: irregular Abdominal/Gastrointestinal Exam: soft, normal bowel sounds, No tenderness Rectal Exam: not done Extremity Exam: non-tender, normal range of motion, normal inspection Neurologic Exam: alert, oriented x 3, cooperative, radiologist chief of breast imaging II-XII nml as tested, normal mood/affect, nml cerebellar function, nml station & gait, sensation nml Skin Exam: normal color, warm, dry Lymphatic Exam: No adenopathy SpO2 Interpretation: borderline oxygenation SpO2: 93 O2 Delivery: Room Air - Course Nursing assessment & vital signs reviewed: Yes EKG Interpreted by Me: RATE (84), A-fib, NORMAL AXIS, NORMAL INTERVALS, NORMAL QRS, NORMAL ST-T, Other (Acute ischemic changes on today's EKG.) Ordered Tests: Active Orders 24 hr Category Date Time Status Design Printer Balloon STAT Care 08/31/21 15:04 Active EKG-ER Only STAT Care 08/31/21 15:03 Active IV Insertion STAT Care 08/31/21 15:03 Active Pulse Oximetry (ED) STAT Care 08/31/21 15:03 Active CHEST 1 VIEW (PORTABLE) Stat Exams 08/31/21 15:04 Completed BLOOD CULTURE Stat Lab 08/31/21 16:04 Received CBC W DIFF Stat Lab 08/31/21 15:20 Completed CMP Stat Lab 08/31/21 16:21 Completed D-DIMER QUANTITATIVE Stat Lab 08/31/21 15:20 Completed Lactic Acid Stat Lab 08/31/21 15:03 Completed NT PRO BNP Stat Lab 08/31/21 15:20 Completed TROPONIN Q3H Lab 08/31/21 15:20 Completed TROPONIN Q3H Lab 08/31/21 18:15 Ordered TROPONIN Q3H Lab 08/31/21 21:15 Ordered TROPONIN Q3H Lab 09/01/21 00:15 Ordered TROPONIN Q3H Lab 09/01/21 03:15 Ordered Medication Summary Discontinued Medications Generic Name Dose Route Start Last Admin Trade Name Yeyo PRN Reason Stop Dose Admin Methylprednisolone Sodium 0 mg 08/31/21 16:22 08/31/21 16:32 Succinate 125 mg/ Sterile IV 08/31/21 16:23 125 mg Water 2 ml STAT ONE Administration Ceftriaxone Sodium/Dextrose 1 g in 50 mls @ 100 mls/hr 08/31/21 16:22 08/31/21 16:32 Rocephin 1 Gm-D5w 50 Ml Bag IV 08/31/21 16:51 100 ml/hr STAT STA 100 mls/hr Administration Ceftriaxone Sodium/Dextrose Confirm 08/31/21 16:27 Rocephin 1 Gm-D5w 50 Ml Bag Administered 08/31/21 16:28 Dose 1 g in 50 mls @ ud IV .STK-MED ONE Methylprednisolone Sodium Succinate Confirm 08/31/21 16:27 Methylprednis Sod Succ 125 Mg/2 Ml Vial Administered 08/31/21 16:28 Dose 125 mg .ROUTE .STK-MED ONE Sterile Water Confirm 08/31/21 16:27 Water For Injection,Sterile 10 Ml Vial Administered 08/31/21 16:28 Dose 10 ml IJ .STK-MED ONE Lab/Rad Data: Laboratory Result Diagrams 08/31/21 15:20 08/31/21 16:21 Laboratory Results 08/31/21 08/31/21 08/31/21 Range/Units 16:21 15:30 15:20 WBC (4.0-10.5) x10^3/uL RBC (4.1-5.4) x10^6/uL Hgb (12.0-16.0) g/dL Hct (35-47) % MCV (78-100) fL MCH (26-32) pg MCHC (32-36) g/dL RDW (11.5-14.0) % Plt Count (150-450) x10^3/uL MPV (7.5-11.0) fL Gran % (36.0-66.0) % Immature Gran % (Auto) (0.00-0.4) % Nucleat RBC Rel Count (0.00-0.1) % Eos # (Auto) (0-0.5) x10^3/uL Immature Gran # (Auto) (0.00-0.03) x10^3u/L Absolute Lymphs (auto) (1.0-4.6) x10^3/uL Absolute Monos (auto) (0.0-1.3) x10^3/uL Absolute Nucleated RBC (0.00-0.01) x10^3u/L Lymphocytes % (24.0-44.0) % Monocytes % (0.0-12.0) % Eosinophils % (0.00-5.0) % Basophils % (0.0-0.4) % Absolute Granulocytes (1.4-6.9) x10^3/uL Basophils # (0-0.4) x10^3/uL D-Dimer (0.0-0.50) mg/L Sodium 139 (137-145) mmol/L Potassium 4.0 (3.5-5.1) mmol/L Chloride 104 (98-107) mmol/L Carbon Dioxide 23 (22-30) mmol/L Anion Gap 15.9 H (5-15) MEQ/L BUN 15 (7-17) mg/dL Creatinine 0.64 (0.52-1.04) mg/dL Estimated GFR > 60.0 ML/MIN Glucose 101 (74-106) mg/dL Lactic Acid (0.4-2.0) Calcium 8.6 (8.4-10.2) mg/dL Total Bilirubin 0.70 (0.2-1.3) mg/dL AST 29 (14-36) U/L ALT 9 (0-35) U/L Alkaline Phosphatase 62 (38-126) U/L Troponin I < 0.012 (0.000-0.034) ng/mL NT-Pro-B Natriuret Pep (0-1800) pg/mL Serum Total Protein 6.8 (6.3-8.2) g/dL Albumin 3.9 (3.5-5.0) g/dL Influenza Type A Ag NEGATIVE (NEGATIVE) Influenza Type B Ag NEGATIVE (NEGATIVE) RSV (PCR) NEGATIVE (Negative) SARS-CoV-2 (PCR) POSITIVE A (NEGATIVE) 08/31/21 08/31/21 08/31/21 Range/Units 15:20 15:20 15:20 WBC 3.8 L (4.0-10.5) x10^3/uL RBC 4.24 (4.1-5.4) x10^6/uL Hgb 13.3 (12.0-16.0) g/dL Hct 40.7 (35-47) % MCV 96.0 (78-100) fL MCH 31.4 (26-32) pg MCHC 32.7 (32-36) g/dL RDW 13.3 (11.5-14.0) % Plt Count 150 (150-450) x10^3/uL MPV 10.3 (7.5-11.0) fL Gran % 53.9 (36.0-66.0) % Immature Gran % (Auto) 0.8 H (0.00-0.4) % Nucleat RBC Rel Count 0.0 (0.00-0.1) % Eos # (Auto) 0.02 (0-0.5) x10^3/uL Immature Gran # (Auto) 0.03 (0.00-0.03) x10^3u/L Absolute Lymphs (auto) 1.28 (1.0-4.6) x10^3/uL Absolute Monos (auto) 0.40 (0.0-1.3) x10^3/uL Absolute Nucleated RBC 0.00 (0.00-0.01) x10^3u/L Lymphocytes % 33.9 (24.0-44.0) % Monocytes % 10.6 (0.0-12.0) % Eosinophils % 0.5 (0.00-5.0) % Basophils % 0.3 (0.0-0.4) % Absolute Granulocytes 2.04 (1.4-6.9) x10^3/uL Basophils # 0.01 (0-0.4) x10^3/uL D-Dimer 0.23 (0.0-0.50) mg/L Sodium (137-145) mmol/L Potassium (3.5-5.1) mmol/L Chloride (98-107) mmol/L Carbon Dioxide (22-30) mmol/L Anion Gap (5-15) MEQ/L BUN (7-17) mg/dL Creatinine (0.52-1.04) mg/dL Estimated GFR ML/MIN Glucose (74-106) mg/dL Lactic Acid (0.4-2.0) Calcium (8.4-10.2) mg/dL Total Bilirubin (0.2-1.3) mg/dL AST (14-36) U/L ALT (0-35) U/L Alkaline Phosphatase (38-126) U/L Troponin I (0.000-0.034) ng/mL NT-Pro-B Natriuret Pep 239 (0-1800) pg/mL Serum Total Protein (6.3-8.2) g/dL Albumin (3.5-5.0) g/dL Influenza Type A Ag (NEGATIVE) Influenza Type B Ag (NEGATIVE) RSV (PCR) (Negative) SARS-CoV-2 (PCR) (NEGATIVE) 08/31/21 Range/Units 15:03 WBC (4.0-10.5) x10^3/uL RBC (4.1-5.4) x10^6/uL Hgb (12.0-16.0) g/dL Hct (35-47) % MCV (78-100) fL MCH (26-32) pg MCHC (32-36) g/dL RDW (11.5-14.0) % Plt Count (150-450) x10^3/uL MPV (7.5-11.0) fL Gran % (36.0-66.0) % Immature Gran % (Auto) (0.00-0.4) % Nucleat RBC Rel Count (0.00-0.1) % Eos # (Auto) (0-0.5) x10^3/uL Immature Gran # (Auto) (0.00-0.03) x10^3u/L Absolute Lymphs (auto) (1.0-4.6) x10^3/uL Absolute Monos (auto) (0.0-1.3) x10^3/uL Absolute Nucleated RBC (0.00-0.01) x10^3u/L Lymphocytes % (24.0-44.0) % Monocytes % (0.0-12.0) % Eosinophils % (0.00-5.0) % Basophils % (0.0-0.4) % Absolute Granulocytes (1.4-6.9) x10^3/uL Basophils # (0-0.4) x10^3/uL D-Dimer (0.0-0.50) mg/L Sodium (137-145) mmol/L Potassium (3.5-5.1) mmol/L Chloride (98-107) mmol/L Carbon Dioxide (22-30) mmol/L Anion Gap (5-15) MEQ/L BUN (7-17) mg/dL Creatinine (0.52-1.04) mg/dL Estimated GFR ML/MIN Glucose (74-106) mg/dL Lactic Acid 1.4 (0.4-2.0) Calcium (8.4-10.2) mg/dL Total Bilirubin (0.2-1.3) mg/dL AST (14-36) U/L ALT (0-35) U/L Alkaline Phosphatase (38-126) U/L Troponin I (0.000-0.034) ng/mL NT-Pro-B Natriuret Pep (0-1800) pg/mL Serum Total Protein (6.3-8.2) g/dL Albumin (3.5-5.0) g/dL Influenza Type A Ag (NEGATIVE) Influenza Type B Ag (NEGATIVE) RSV (PCR) (Negative) SARS-CoV-2 (PCR) (NEGATIVE) - Progress Progress: improved, re-examined Air Movement: good Progress Note: 08/31/21 16:19 Chest x-ray shows right basilar infiltrate Blood Culture(s) Obtained: Yes Antibiotics given: Yes Counseled pt/family regarding: lab results, diagnosis, need for follow-up, rad results - Departure Departure Disposition: Home Clinical Impression: Right lower lobe pneumonia, COVID-19 virus infection Condition: Stable Critical Care Time: No Referrals: DAREN JAIN MD [Primary Care Provider] - Follow up/PCP as directed Additional Instructions: Take your medication as prescribed. Follow-up with your primary care physician for further management. Use your inhalers and nebulizer machine as prescribed. Prescriptions: Prednisone 10 mg [Deltasone 10 mg] 10 mg PO TID #12 tablet Azithromycin 250 mg [Zithromax 250 MG TABLET] 250 mg PO ZPACK #6 tablet
[2021-08-31 16:20] LABS: INFLUENZA A NEGATIVE (NEGATIVE); INFLUENZA B NEGATIVE (NEGATIVE); RESPIRATORY SYNCTIAL VIRUS NEGATIVE (Negative)
[2021-08-31] MEDS ORDERED: solu-MEDROL 125 MG, Sterile H2O 10 ml 2 ML IV ONE ×2 (16:22)
[2021-08-31] MEDS ORDERED: ROCEPHIN 1 Gm-D5w 50 ml Bag** 1 G/50 ML IVPB IV STA (16:22)
[2021-08-31] MEDS ORDERED: solu-MEDROL ONE (16:27)
[2021-08-31] MEDS ORDERED: Sterile H2O 10 ml IJ ONE (16:27)
[2021-08-31] MEDS ORDERED: ROCEPHIN 1 Gm-D5w 50 ml Bag** 1 G/50 ML IVPB IV ONE (16:27)
[2021-08-31 16:37] LABS: SARS-CoV-2 Xpert Express POSITIVE (NEGATIVE)
--- NOTE | 2021-08-31 16:40 | XRAY ---
Indication: Short of breath. COPD. Atrophy relation. Comparison: June 03, 2018. Portable chest demonstrates new right mid to lower lung consolidating/nonconsolidating airspace disease. Remaining heart and left lung unremarkable again with incidental tortuous descending aorta. Bony thorax intact again with osteopenia and degenerative changes.
[2021-08-31 16:49] LABS: ALBUMIN 3.9 g/dL (3.5-5.0); ALKALINE PHOSPHATASE 62 U/L (38-126); ANION GAP 15.9 MEQ/L (5-15); BLOOD UREA NITROGEN 15 mg/dL (7-17); CHLORIDE 104 mmol/L (98-107); Calcium 8.6 mg/dL (8.4-10.2); Carbon Dioxide 23 mmol/L (22-30); Creatinine 1 0.64 mg/dL (0.52-1.04); EST GLOMERULAR FILTRATION RATE > 60.0 ML/MIN; Glucose 101 mg/dL (74-106); SGOT/AST 29 U/L (14-36); SGPT/ALT 9 U/L (0-35); SODIUM 139 mmol/L (137-145); Total Protein 6.8 g/dL (6.3-8.2)
[2021-08-31 17:26] VITALS: BP 137/79; PULSE 69; O2SAT 95
== END 2021-08-31 17:35 | disposition home or self-care (01) ==
LOC: ED 14:54
DX: U07.1 COVID-19 (principal); J12.82 Pneumonia due to coronavirus disease 2019; R06.02 Shortness of breath; R09.81 Nasal congestion; I10 Essential (primary) hypertension; E78.5 Hyperlipidemia, unspecified; J44.0 Chronic obstructive pulmonary disease with (acute) lower respiratory infection; Z79.01 Long term (current) use of anticoagulants; Z79.899 Other long term (current) drug therapy; Z79.52 Long term (current) use of systemic steroids
CPT/HCPCS: 0241U; 36000; 36415; 71045; 80053; 83605; 83880; 84484; 85025; 85379; 87040; 93005; 93041; 94760; 96365; 96374; 99284; J0696; J2930

== ENCOUNTER 2022-05-09 20:33 | Observation (INO) | payer MEDICARE, OTHER ==
[2022-05-09] MEDS ORDERED: solu-MEDROL 125 MG, Sterile H2O 10 ml 2 ML IV ONE ×2 (20:45)
[2022-05-09] MEDS ORDERED: solu-MEDROL ONE (21:01)
[2022-05-09] MEDS ORDERED: Sterile H2O 10 ml IJ ONE (21:01)
[2022-05-09] MEDS: Sodium Chloride 0.9% 1000 ML 1,000 ML IV SCH (21:03)
[2022-05-09 21:06] LABS: Absolute Neutrophil Ct (ANC) 15.98 x10^3/uL (1.4-6.9); BASOPHIL % 0.3 % (0.0-0.4); Basophil (Absolute #) 0.06 x10^3/uL (0-0.4); Eosinophil % 0.2 % (0.00-5.0); Eosinophil (Absolute #) 0.03 x10^3/uL (0-0.5); Hematocrit 41.1 % (35-47); Hemoglobin 13.2 g/dL (12.0-16.0); IMMATURE GRAN # 0.09 x10^3u/L (0.00-0.03); IMMATURE GRAN % 0.5 % (0.00-0.4); Lymphocyte (Absolute #) 1.18 x10^3/uL (1.0-4.6); Lymphocytes % 6.5 % (24.0-44.0); Mean Cell Volume 98.8 fL (78-100); Mean Corpuscular Hemoglobin 31.7 pg (26-32); Mean Corpuscular Hgb Concent. 32.1 g/dL (32-36); Mean Platelet Volume 10.1 fL (7.5-11.0); Monocyte (Absolute #) 0.85 x10^3/uL (0.0-1.3); Monocytes % 4.7 % (0.0-12.0); Neutrophil % 87.8 % (36.0-66.0); Platelet Count 217 x10^3/uL (150-450); Red Blood Count 4.16 x10^6/uL (4.1-5.4); White Blood Count 18.2 x10^3/uL (4.0-10.5)
[2022-05-09 21:19] LABS: D-DIMER QUANTITATIVE 0.26 mg/L (0.0-0.50); INR 2.27 (0.8-3.0); PROTIME 23.3 SECONDS (9.4-12.5)
[2022-05-09 21:34] LABS: ALBUMIN 4.4 g/dL (3.5-5.0); ALKALINE PHOSPHATASE 77 U/L (38-126); ANION GAP 12.6 MEQ/L (5-15); BLOOD UREA NITROGEN 17 mg/dL (7-17); CHLORIDE 99 mmol/L (98-107); Calcium 8.9 mg/dL (8.4-10.2); Carbon Dioxide 31 mmol/L (22-30); Creatinine 1 0.62 mg/dL (0.52-1.04); EST GLOMERULAR FILTRATION RATE > 60.0 ML/MIN; Glucose 167 mg/dL (74-106); MAGNESIUM 1.7 mg/dL (1.6-2.3); Potassium 3.7 mmol/L (3.5-5.1); SGOT/AST 34 U/L (14-36); SGPT/ALT 13 U/L (0-35); SODIUM 139 mmol/L (137-145); TROPONIN < 0.012 ng/mL (0.000-0.034); Total Protein 7.8 g/dL (6.3-8.2)
[2022-05-09 21:42] LABS: INFLUENZA A NEGATIVE (NEGATIVE); INFLUENZA B NEGATIVE (NEGATIVE); RESPIRATORY SYNCTIAL VIRUS NEGATIVE (Negative); SARS-CoV-2 Xpert Express NEGATIVE (NEGATIVE)
[2022-05-09] MEDS ORDERED: ROCEPHIN 1 Gm-D5w 50 ml Bag** 1 G/50 ML IVPB IV STA (22:18)
[2022-05-09] MEDS ORDERED: Zithromax 500 MG/ 250 ML NaCl Premix 500 MG/250 ML IVPB IV ONE ×2 (22:19→22:59)
[2022-05-09] MEDS ORDERED: ROCEPHIN 1 Gm-D5w 50 ml Bag** 1 G/50 ML IVPB IV ONE (22:40)
--- NOTE | 2022-05-09 23:49 | ERPHSYRPT ---
- History of Present Illness Time Seen by Provider: 05/09/22 20:45 Source: patient, family Exam Limitations: no limitations Patient Subjective Stated Complaint: Pt states "I was sitting when I became real short of breath, I thought it would go away but it never did." Triage Nursing Assessment: Pt alert and oriented x3. Deep tachy breathing, no di stress, 98% on room air. Pt has some tremoring. Skin w/p/d. Crackles heard posteriorly throughout. Bilat lower extremity edema, right lower extremity +1 pitting skin w/p/d and left lower extremity +1 skin red, leaking, warm. Physician History: Patient is an 86-year-old white female presents with a complaint of shortness of breath and cough. She was sitting watching TV when she became very very short of breath. She also became somewhat anxious and had shaking. She had a right lower lobe pneumonia in August of last year associated with COVID. Timing/Duration: today Activities at Onset: none Severity of Dyspnea-Max: moderate Severity of Dyspnea-Current: moderate Possible Cause: occasional episodes Allergies/Adverse Reactions: hydrocodone bitartrate [From Vicodin] Allergy (Severe, Verified 05/09/22 20:34) Itching Home Medications: Celecoxib 100 mg [celeBREX 100 MG] 250 mg PO DAILY 12/30/12 [History] Esomeprazole Magnesium [Nexium] 40 mg PO DAILY 12/30/12 [History] Levothyroxine Sodium 150 Mcg [Synthroid 150 Mcg] 150 mcg PO DAILY 12/30/12 [History] Nebivolol HCl 5 MG [Bystolic 5 MG] 5 mg PO DAILY 12/30/12 [History] Warfarin Sodium 5 mg [Coumadin 5 MG] 8 mg PO DAILY 12/30/12 [History] Albuterol Sulfate Mdi [Proair Hfa MDI] 8.5 gm IH QID 06/03/18 [History] Budesonide/Formoterol Fumarate [Symbicort 160-4.5 Mcg Inhaler] 10.2 gm IH BID 06/03/18 [History] Furosemide 40 mg [Lasix 40 MG] 20 mg PO BID 06/03/18 [History] Montelukast Sodium 10 mg [Singulair 10 MG] 10 mg PO DAILY 06/03/18 [History] Pravastatin Sodium 20 mg PO HS 06/03/18 [History] Hx Tetanus, Diphtheria Vaccination/Date Given: Yes Hx Influenza Vaccination/Date Given: Yes Hx Pneumococcal Vaccination/Date Given: Yes Immunizations Up to Date: Yes Travel Risk - International Travel Have you traveled outside of the country in past 3 weeks: No - Coronavirus Screening Are you exhibiting any of the following symptoms?: Yes Symptoms: Shortness of Breath Close contact with a COVID-19 positive Pt in past 14-21 Days: No - Vaccine Status Have you recieved a Covid-19 vaccination: Yes Insurance Agency Owner: [employer] - Vaccination Dates Date of 2cond Vaccination (if applicable): 2020 - Review of Systems Constitutional: No Fever, No Chills Eyes: No Symptoms Ears, Nose, & Throat: No Symptoms Respiratory: Cough, Dyspnea, Dyspnea on Exertion (ALICIA) Cardiac: No Chest Pain, No Edema, No Syncope Abdominal/Gastrointestinal: No Abdominal Pain, No Nausea, No Vomiting, No Diar deidra Genitourinary Symptoms: No Dysuria Musculoskeletal: No Back Pain, No Neck Pain Skin: No Rash Neurological: No Dizziness, No Focal Weakness, No Sensory Changes Psychological: No Symptoms Endocrine: No Symptoms All Other Systems: Reviewed and Negative - Past Medical History Pertinent Past Medical History: Yes Neurological History: No Pertinent History ENT History: No Pertinent History Cardiac History: Arrhythmia, High Cholesterol Respiratory History: COPD Endocrine Medical History: Hyperthyroidism Musculoskeletal History: Arthritis GI Medical History: GERD, Hernia History: No Pertinent History Psycho-Social History: No Pertinent History Female Reproductive Disorders: No Pertinent History Other Medical History: BROKEN BACK IN PAST - Past Surgical History Past Surgical History: Yes Neuro Surgical History: No Pertinent History Cardiac: No Pertinent History Respiratory: No Pertinent History Gastrointestinal: Cholecystectomy, Hernia Repair Genitourinary: No Pertinent History Musculoskeletal: Orthopedic Surgery, Other Female Surgical History: Hysterectomy Other Surgical History: THYROID REMOVED. SEVERAL HERNIA REPAIRS. RIGHT KNEE REPLACED. LEFT ARM FRACTURE - Social History Smoking Status: Never smoker Exposure to second hand smoke: No Drug Use: none Patient Lives Alone: No - Nursing Vital Signs Nursing Vital Signs: Initial Vital Signs Temperature 98.7 F 05/09/22 20:34 Pulse Rate 107 H 05/09/22 20:34 Respiratory Rate 28 H 03/13/23 20:34 Blood Pressure 166/86 03/13/23 20:34 O2 Sat by Pulse Oximetry 98 05/09/22 20:34 Pain Scale Pain Intensity 0 - Physical Exam General Appearance: moderate distress, alert Eye Exam: PERRL/EOMI Neck Exam: normal inspection, supple Respiratory Exam: respiratory distress, airway intact, crackles/rales (Right base) Cardiovascular/Chest Exam: normal heart sounds, regular rate/rhythm Abdominal/Gastrointestinal Exam: soft, No tenderness, No distention, No mass Extremity Exam: non-tender, normal range of motion, normal inspection, no calf tenderness, no pedal edema Neurologic Exam: alert, oriented x 3, cooperative, security flex officer II-XII nml as tested, sensation nml, No motor deficits Skin Exam: normal color, warm, No dry SpO2 Interpretation: borderline oxygenation, O2 applied SpO2: 96 O2 Delivery: Nasal Cannula - Course Nursing assessment & vital signs reviewed: Yes EKG Interpreted by Me: RATE, A-fib (98), NORMAL AXIS, Non-specific ST Changes - Radiology Exams Chest X-ray Interpretation: Reviewed by me Ordered Tests: Active Orders 24 hr Category Date Time Status Transmissions Systems Operator STAT Care 05/09/22 20:59 Active EKG-ER Only STAT Care 05/09/22 20:45 Active IV Insertion STAT Care 05/09/22 20:58 Active CHEST 1 VIEW (PORTABLE) Stat Exams 05/09/22 20:45 Taken BLOOD CULTURE Stat Lab 05/09/22 20:45 Received CBC W DIFF Stat Lab 05/09/22 20:45 Completed CMP Stat Lab 05/09/22 20:45 Completed D-DIMER QUANTITATIVE Stat Lab 05/09/22 20:45 Completed Lactic Acid Stat Lab 05/09/22 21:12 Completed Lactic Acid Stat Lab 05/09/22 23:19 Received MAGNESIUM Stat Lab 05/09/22 20:45 Completed NT PRO BNPII Stat Lab 05/09/22 20:45 Completed PROTIME WITH INR Stat Lab 05/09/22 20:45 Completed TROPONIN Q4H Lab 05/09/22 20:45 Completed TROPONIN Q4H Lab 05/10/22 00:45 Ordered TROPONIN Q4H Lab 05/10/22 04:45 Ordered Medication Summary Generic Name Dose Route Start Last Admin Trade Name Freq PRN Reason Stop Dose Admin Sodium Chloride 1,000 mls @ 100 mls/hr 05/09/22 20:45 05/09/22 21:03 Sodium Chloride 0.9% 1000 Ml IV 06/08/22 20:44 100 mls/hr .Q10H BETO Administration Discontinued Medications Generic Name Dose Route Start Last Admin Trade Name Yeyo PRN Reason Stop Dose Admin Methylprednisolone Sodium 0 mg 05/09/22 20:45 05/09/22 21:04 Succinate 125 mg/ Sterile IV 05/09/22 20:46 125 mg Water 2 ml STAT ONE Administration Ceftriaxone Sodium/Dextrose 1 g in 50 mls @ 100 mls/hr 05/09/22 22:18 05/09/22 23:12 Rocephin 1 Gm-D5w 50 Ml Bag IV 05/09/22 22:47 Infused STAT STA Infusion Azithromycin 500 mg in 250 mls @ 250 mls/hr 05/09/22 22:19 05/09/22 23:01 Zithromax 500 Mg/ 250 Ml Nacl Premix IV 05/09/22 23:18 250 mls/hr STAT ONE Administration Ceftriaxone Sodium/Dextrose Confirm 05/09/22 22:40 Rocephin 1 Gm-D5w 50 Ml Bag Administered 05/09/22 22:41 Dose 1 g in 50 mls @ ud IV .STK-MED ONE Azithromycin Confirm 05/09/22 22:59 Zithromax 500 Mg/ 250 Ml Nacl Premix Administered 05/09/22 23:00 Dose 500 mg in 250 mls @ ud IV .STK-MED ONE Methylprednisolone Sodium Succinate Confirm 05/09/22 21:01 Methylprednis Sod Succ 125 Mg/2 Ml Vial Administered 05/09/22 21:02 Dose 125 mg .ROUTE .STK-MED ONE Sterile Water Confirm 05/09/22 21:01 Water For Injection,Sterile 10 Ml Vial Administered 05/09/22 21:02 Dose 10 ml IJ .STK-MED ONE Lab/Rad Data: Laboratory Result Diagrams 05/09/22 20:45 05/09/22 20:45 Laboratory Results 05/09/22 05/09/22 05/09/22 Range/Units 21:12 20:55 20:45 WBC (4.0-10.5) x10^3/uL RBC (4.1-5.4) x10^6/uL Hgb (12.0-16.0) g/dL Hct (35-47) % MCV (78-100) fL MCH (26-32) pg MCHC (32-36) g/dL RDW (11.5-14.0) % Plt Count (150-450) x10^3/uL MPV (7.5-11.0) fL Gran % (36.0-66.0) % Immature Gran % (Auto) (0.00-0.4) % Nucleat RBC Rel Count (0.00-0.1) % Eos # (Auto) (0-0.5) x10^3/uL Immature Gran # (Auto) (0.00-0.03) x10^3u/L Absolute Lymphs (auto) (1.0-4.6) x10^3/uL Absolute Monos (auto) (0.0-1.3) x10^3/uL Absolute Nucleated RBC (0.00-0.01) x10^3u/L Lymphocytes % (24.0-44.0) % Monocytes % (0.0-12.0) % Eosinophils % (0.00-5.0) % Basophils % (0.0-0.4) % Absolute Granulocytes (1.4-6.9) x10^3/uL Basophils # (0-0.4) x10^3/uL PT (9.4-12.5) SECONDS INR (0.8-3.0) D-Dimer (0.0-0.50) mg/L Sodium (137-145) mmol/L Potassium (3.5-5.1) mmol/L Chloride (98-107) mmol/L Carbon Dioxide (22-30) mmol/L Anion Gap (5-15) MEQ/L BUN (7-17) mg/dL Creatinine (0.52-1.04) mg/dL Estimated GFR ML/MIN Glucose (74-106) mg/dL Lactic Acid 3.0 H (0.4-2.0) Calcium (8.4-10.2) mg/dL Magnesium (1.6-2.3) mg/dL Total Bilirubin (0.2-1.3) mg/dL AST (14-36) U/L ALT (0-35) U/L Alkaline Phosphatase (38-126) U/L Troponin I (0.000-0.034) ng/mL NT-Pro-B Natriuret Pep 506 (<300) pg/mL Serum Total Protein (6.3-8.2) g/dL Albumin (3.5-5.0) g/dL Influenza Type A Ag NEGATIVE (NEGATIVE) Influenza Type B Ag NEGATIVE (NEGATIVE) RSV (PCR) NEGATIVE (Negative) SARS-CoV-2 (PCR) NEGATIVE (NEGATIVE) 05/09/22 05/09/22 05/09/22 Range/Units 20:45 20:45 20:45 WBC 18.2 H (4.0-10.5) x10^3/uL RBC 4.16 (4.1-5.4) x10^6/uL Hgb 13.2 (12.0-16.0) g/dL Hct 41.1 (35-47) % MCV 98.8 (78-100) fL MCH 31.7 (26-32) pg MCHC 32.1 (32-36) g/dL RDW 13.0 (11.5-14.0) % Plt Count 217 (150-450) x10^3/uL MPV 10.1 (7.5-11.0) fL Gran % 87.8 H (36.0-66.0) % Immature Gran % (Auto) 0.5 H (0.00-0.4) % Nucleat RBC Rel Count 0.0 (0.00-0.1) % Eos # (Auto) 0.03 (0-0.5) x10^3/uL Immature Gran # (Auto) 0.09 H (0.00-0.03) x10^3u/L Absolute Lymphs (auto) 1.18 (1.0-4.6) x10^3/uL Absolute Monos (auto) 0.85 (0.0-1.3) x10^3/uL Absolute Nucleated RBC 0.00 (0.00-0.01) x10^3u/L Lymphocytes % 6.5 L (24.0-44.0) % Monocytes % 4.7 (0.0-12.0) % Eosinophils % 0.2 (0.00-5.0) % Basophils % 0.3 (0.0-0.4) % Absolute Granulocytes 15.98 H (1.4-6.9) x10^3/uL Basophils # 0.06 (0-0.4) x10^3/uL PT 23.3 H (9.4-12.5) SECONDS INR 2.27 (0.8-3.0) D-Dimer 0.26 (0.0-0.50) mg/L Sodium 139 (137-145) mmol/L Potassium 3.7 (3.5-5.1) mmol/L Chloride 99 (98-107) mmol/L Carbon Dioxide 31 H (22-30) mmol/L Anion Gap 12.6 (5-15) MEQ/L BUN 17 (7-17) mg/dL Creatinine 0.62 (0.52-1.04) mg/dL Estimated GFR > 60.0 ML/MIN Glucose 167 H (74-106) mg/dL Lactic Acid (0.4-2.0) Calcium 8.9 (8.4-10.2) mg/dL Magnesium 1.7 (1.6-2.3) mg/dL Total Bilirubin 0.90 (0.2-1.3) mg/dL AST 34 (14-36) U/L ALT 13 (0-35) U/L Alkaline Phosphatase 77 (38-126) U/L Troponin I < 0.012 (0.000-0.034) ng/mL NT-Pro-B Natriuret Pep (<300) pg/mL Serum Total Protein 7.8 (6.3-8.2) g/dL Albumin 4.4 (3.5-5.0) g/dL Influenza Type A Ag (NEGATIVE) Influenza Type B Ag (NEGATIVE) RSV (PCR) (Negative) SARS-CoV-2 (PCR) (NEGATIVE) - Progress Progress: improved Air Movement: good Blood Culture(s) Obtained: Yes Antibiotics given: Yes Discussed with Dr.: Other (Dr. Chung) Will see patient in: hospital (observation) Medical Desision Making - Independent Historian Additional History obtained from: Relative/friend - Discussion of managment Care discussed with:: hospitalist Reviewed:: Test results Agreed on:: Treatment plan Will see patient: in hospital - Diagnostic Testing Radiological Interpretation: Reviewed by me, Teleradiologist Report - Risk of complications The pt has a mod risk of morbidity or mortality based on: Need for prescription drug management - Departure Departure Disposition: Observation Clinical Impression: Right lower lobe pneumonia Condition: Fair Critical Care Time: No Referrals: DAREN JAIN MD [Primary Care Provider] - Follow up/PCP as directed Instructions: Pneumonia, Adult (DC)
[2022-05-10 05:08] LABS: Absolute Neutrophil Ct (ANC) 18.59 x10^3/uL (1.4-6.9); BASOPHIL % 0.2 % (0.0-0.4); Basophil (Absolute #) 0.04 x10^3/uL (0-0.4); Eosinophil (Absolute #) 0 x10^3/uL (0-0.5); Hematocrit 39.5 % (35-47); Hemoglobin 13.2 g/dL (12.0-16.0); IMMATURE GRAN # 0.11 x10^3u/L (0.00-0.03); IMMATURE GRAN % 0.6 % (0.00-0.4); Lymphocyte (Absolute #) 0.64 x10^3/uL (1.0-4.6); Lymphocytes % 3.2 % (24.0-44.0); Mean Cell Volume 97.1 fL (78-100); Mean Corpuscular Hemoglobin 32.4 pg (26-32); Mean Corpuscular Hgb Concent. 33.4 g/dL (32-36); Mean Platelet Volume 9.9 fL (7.5-11.0); Monocyte (Absolute #) 0.32 x10^3/uL (0.0-1.3); Monocytes % 1.6 % (0.0-12.0); Neutrophil % 94.4 % (36.0-66.0); Platelet Count 211 x10^3/uL (150-450); Red Blood Count 4.07 x10^6/uL (4.1-5.4); Red Cell Distribution Width 13.2 % (11.5-14.0); White Blood Count 19.7 x10^3/uL (4.0-10.5)
[2022-05-10 05:39] LABS: ALBUMIN 4.2 g/dL (3.5-5.0); ALKALINE PHOSPHATASE 63 U/L (38-126); ANION GAP 12.2 MEQ/L (5-15); BLOOD UREA NITROGEN 14 mg/dL (7-17); CHLORIDE 101 mmol/L (98-107); Calcium 8.6 mg/dL (8.4-10.2); Carbon Dioxide 30 mmol/L (22-30); Creatinine 1 0.58 mg/dL (0.52-1.04); EST GLOMERULAR FILTRATION RATE > 60.0 ML/MIN; Glucose 164 mg/dL (74-106); Potassium 4.1 mmol/L (3.5-5.1); SGOT/AST 25 U/L (14-36); SGPT/ALT 15 U/L (0-35); SODIUM 139 mmol/L (137-145); Total Protein 7.5 g/dL (6.3-8.2)
[2022-05-10] MEDS: Sodium Chloride 0.9% 1000 ML 1,000 ML IV SCH ×2 (07:57→17:35)
--- NOTE | 2022-05-10 08:45 | XRAY ---
Indication: Short of breath. COPD. Comparison: July 01, 2021 Portable apical lordotic chest again demonstrates right mid to lower lung consolidating/nonconsolidated airspace disease. Query new patchy left lung airspace disease. No large effusion. Heart not enlarged again with tortuous descending aorta. Bony thorax intact again with osteopenia and marked degenerative changes. Comment: Preliminary interpretation made by [facility]. No critical discrepancy.
[2022-05-10] MEDS ORDERED: ZOFRAN ODT 4 MG PO PRN (12:26)
[2022-05-10] MEDS ORDERED: Tylenol #3 Tablet PO PRN (12:26)
--- NOTE | 2022-05-10 12:53 | PCM.HP ---
History of Present Illness - Chief Complaint Chief Complaint: c/o shortness of breath for 1 day History of Present Illness: is a 86 year old female.presents with a complaint of shortness of breath and cough. She was sitting watching TV when she became very very short of breath. She also became somewhat anxious and had shaking. She had a right lower lobe pneumonia in August of last year associated with COVID. Timing/Duration: today Activities at Onset: none Severity of Dyspnea-Max: moderate Severity of Dyspnea-Current: moderate Possible Cause: occasional episodes - Review of Systems Constitutional: Fever, Chills Eyes: No Symptoms Ears, Nose, & Throat: No Symptoms Respiratory: Cough, Orthopnea, Short Of Breath, Wheezing Cardiac: No Chest Pain, No Edema, No Syncope Abdominal/Gastrointestinal: No Abdominal Pain, No Nausea, No Vomiting, No Diarrhea Genitourinary Symptoms: No Dysuria Musculoskeletal: No Back Pain, No Neck Pain Skin: No Rash Neurological: No Dizziness, No Focal Weakness, No Sensory Changes Psychological: No Symptoms Endocrine: No Symptoms Hematologic/Lymphatic: No Symptoms Immunological/Allergic: No Symptoms Medications & Allergies Home Medications: Home Medication List Celecoxib 100 mg [celeBREX 100 MG] 200 mg PO BID 12/30/12 [History Confirmed 05/10/22] Esomeprazole Magnesium [Nexium] 20 mg PO DAILY 12/30/12 [History Confirmed 05/10/22] Levothyroxine Sodium 150 Mcg [Synthroid 150 Mcg] 150 mcg PO DAILY 12/30/12 [History Confirmed 05/10/22] Nebivolol HCl 5 MG [Bystolic 5 MG] 5 mg PO DAILY 12/30/12 [History Confirmed 05/10/22] Warfarin Sodium 5 mg [Coumadin 5 MG] 6 mg PO DAILY 12/30/12 [History Confirmed 05/10/22] Acetaminophen with Codeine [Tylenol with Codeine #3 Tablet] 1 each PO Q6H PRN #10 tablet 06/03/18 [Rx Confirmed 05/10/22] Albuterol Sulfate Mdi [Proair Hfa MDI] 8.5 gm IH QID 06/03/18 [History Confirmed 05/10/22] Budesonide/Formoterol Fumarate [Symbicort 160-4.5 Mcg Inhaler] 10.2 gm IH BID 06/03/18 [History Confirmed 05/10/22] Furosemide 40 mg [Lasix 40 MG] 20 mg PO DAILY 06/03/18 [History Confirmed 05/10/22] Ondansetron ODT 4 MG [Zofran Odt 4 mg] 4 mg PO Q6H PRN PRN #10 tab.rapdis 06/03/18 [Rx Confirmed 05/10/22] Pravastatin Sodium 20 mg PO HS 06/03/18 [History Confirmed 05/10/22] Allergies/Adverse Reactions: Allergies Allergy/AdvReac Type Severity Reaction Status Date / Time hydrocodone bitartrate Allergy Severe Itching Verified 05/09/22 20:34 [From Vicodin] - Past Medical History Past Medical History: Yes Neurological History: No Pertinent History ENT History: Cataracts Cardiac History: Arrhythmia, Congestive Heart Failure, Hypertension Respiratory History: Asthma, CHF, COPD Endocrine Medical History: Hypothyroidism Musculoskelatal History: Arthritis, Fractures, Osteoporosis GI Medical History: GERD, Hernia History: No Pertinent History Pyscho-Social History: No Pertinent History Reproductive Disorders: Fibroids, Other Comment: BROKEN BACK IN PAST - Female History Are you now?: No - Past Surgical History Past Surgical History: Yes Neuro Surgical History: No Pertinent History Cardiac History: No Pertinent History Respiratory Surgery: No Pertinent History GI Surgical History: Hernia Repair Genitourinary Surgical Hx: No Pertinent History Musculskeletal Surgical Hx: Joint Replacement Female Surgical History: Hysterectomy Other Surgical History: Right knee replacement 2009. - Social History Smoking Status: Never smoker Exposure to second hand smoke: No Alcohol: None Drug Use: none - Physical Exam Vital Signs: Vital Signs - 24 hr Temp Pulse Resp BP Pulse Ox 05/10/22 11:48 97.9 F 90 16 130/58 94 L 05/10/22 07:37 97 05/10/22 07:19 97.6 F 79 16 135/60 97 05/10/22 05:23 96.9 F 81 18 145/66 96 05/10/22 04:00 97.7 F 102 H 18 134/64 92 L 05/10/22 00:42 97.7 F 102 H 18 134/64 92 L 05/10/22 00:15 92 H 18 115/75 94 L 05/09/22 23:51 96 05/09/22 23:02 98 H 20 96 05/09/22 22:00 100 H 20 96 05/09/22 20:34 98.7 F 107 H 28 H 166/86 98 General Appearance: mild distress, alert Neurologic Exam: alert, oriented x 3, cooperative, normal mood/affect, nml cerebellar function, nml station & gait, sensation nml, No motor deficits Eye Exam: PERRL/EOMI, eyes nml inspection Ears, Nose, Throat Exam: normal ENT inspection, TMs normal, pharynx normal, moist mucous membranes Neck Exam: normal inspection, non-tender, supple, full range of motion Respiratory Exam: diminished breath sounds, crackles/rales, rhonchi, wheezing, No respiratory distress Cardiovascular Exam: regular rate/rhythm, normal heart sounds, normal peripheral pulses Gastrointestinal/Abdomen Exam: soft, normal bowel sounds, No tenderness, No mass Back Exam: normal inspection, normal range of motion, No CVA tenderness, No vertebral tenderness Extremity Exam: normal inspection, normal range of motion, pelvis stable Skin Exam: normal color, warm, dry, No rash Lymphatic Exam: No adenopathy Results - Labs Lab/Micro Results: Lab Results-Last 24 Hours 05/09/22 05/09/22 05/09/22 Range/Units 20:45 20:45 20:45 WBC 18.2 H (4.0-10.5) x10^3/uL RBC 4.16 (4.1-5.4) x10^6/uL Hgb 13.2 (12.0-16.0) g/dL Hct 41.1 (35-47) % MCV 98.8 (78-100) fL MCH 31.7 (26-32) pg MCHC 32.1 (32-36) g/dL RDW 13.0 (11.5-14.0) % Plt Count 217 (150-450) x10^3/uL MPV 10.1 (7.5-11.0) fL Gran % 87.8 H (36.0-66.0) % Immature Gran % (Auto) 0.5 H (0.00-0.4) % Nucleat RBC Rel Count 0.0 (0.00-0.1) % Eos # (Auto) 0.03 (0-0.5) x10^3/uL Immature Gran # (Auto) 0.09 H (0.00-0.03) x10^3u/L Absolute Lymphs (auto) 1.18 (1.0-4.6) x10^3/uL Absolute Monos (auto) 0.85 (0.0-1.3) x10^3/uL Absolute Nucleated RBC 0.00 (0.00-0.01) x10^3u/L Lymphocytes % 6.5 L (24.0-44.0) % Monocytes % 4.7 (0.0-12.0) % Eosinophils % 0.2 (0.00-5.0) % Basophils % 0.3 (0.0-0.4) % Absolute Granulocytes 15.98 H (1.4-6.9) x10^3/uL Basophils # 0.06 (0-0.4) x10^3/uL PT 23.3 H (9.4-12.5) SECONDS INR 2.27 (0.8-3.0) D-Dimer 0.26 (0.0-0.50) mg/L Sodium 139 (137-145) mmol/L Potassium 3.7 (3.5-5.1) mmol/L Chloride 99 (98-107) mmol/L Carbon Dioxide 31 H (22-30) mmol/L Anion Gap 12.6 (5-15) MEQ/L BUN 17 (7-17) mg/dL Creatinine 0.62 (0.52-1.04) mg/dL Estimated GFR > 60.0 ML/MIN Glucose 167 H (74-106) mg/dL Lactic Acid (0.4-2.0) Calcium 8.9 (8.4-10.2) mg/dL Magnesium 1.7 (1.6-2.3) mg/dL Total Bilirubin 0.90 (0.2-1.3) mg/dL AST 34 (14-36) U/L ALT 13 (0-35) U/L Alkaline Phosphatase 77 (38-126) U/L Troponin I < 0.012 (0.000-0.034) ng/mL NT-Pro-B Natriuret Pep (<300) pg/mL Serum Total Protein 7.8 (6.3-8.2) g/dL Albumin 4.4 (3.5-5.0) g/dL Influenza Type A Ag (NEGATIVE) Influenza Type B Ag (NEGATIVE) RSV (PCR) (Negative) SARS-CoV-2 (PCR) (NEGATIVE) 05/09/22 05/09/22 05/09/22 Range/Units 20:45 20:55 21:12 WBC (4.0-10.5) x10^3/uL RBC (4.1-5.4) x10^6/uL Hgb (12.0-16.0) g/dL Hct (35-47) % MCV (78-100) fL MCH (26-32) pg MCHC (32-36) g/dL RDW (11.5-14.0) % Plt Count (150-450) x10^3/uL MPV (7.5-11.0) fL Gran % (36.0-66.0) % Immature Gran % (Auto) (0.00-0.4) % Nucleat RBC Rel Count (0.00-0.1) % Eos # (Auto) (0-0.5) x10^3/uL Immature Gran # (Auto) (0.00-0.03) x10^3u/L Absolute Lymphs (auto) (1.0-4.6) x10^3/uL Absolute Monos (auto) (0.0-1.3) x10^3/uL Absolute Nucleated RBC (0.00-0.01) x10^3u/L Lymphocytes % (24.0-44.0) % Monocytes % (0.0-12.0) % Eosinophils % (0.00-5.0) % Basophils % (0.0-0.4) % Absolute Granulocytes (1.4-6.9) x10^3/uL Basophils # (0-0.4) x10^3/uL PT (9.4-12.5) SECONDS INR (0.8-3.0) D-Dimer (0.0-0.50) mg/L Sodium (137-145) mmol/L Potassium (3.5-5.1) mmol/L Chloride (98-107) mmol/L Carbon Dioxide (22-30) mmol/L Anion Gap (5-15) MEQ/L BUN (7-17) mg/dL Creatinine (0.52-1.04) mg/dL Estimated GFR ML/MIN Glucose (74-106) mg/dL Lactic Acid 3.0 H (0.4-2.0) Calcium (8.4-10.2) mg/dL Magnesium (1.6-2.3) mg/dL Total Bilirubin (0.2-1.3) mg/dL AST (14-36) U/L ALT (0-35) U/L Alkaline Phosphatase (38-126) U/L Troponin I (0.000-0.034) ng/mL NT-Pro-B Natriuret Pep 506 (<300) pg/mL Serum Total Protein (6.3-8.2) g/dL Albumin (3.5-5.0) g/dL Influenza Type A Ag NEGATIVE (NEGATIVE) Influenza Type B Ag NEGATIVE (NEGATIVE) RSV (PCR) NEGATIVE (Negative) SARS-CoV-2 (PCR) NEGATIVE (NEGATIVE) 05/09/22 05/10/22 05/10/22 Range/Units 23:19 00:50 05:05 WBC (4.0-10.5) x10^3/uL RBC (4.1-5.4) x10^6/uL Hgb (12.0-16.0) g/dL Hct (35-47) % MCV (78-100) fL MCH (26-32) pg MCHC (32-36) g/dL RDW (11.5-14.0) % Plt Count (150-450) x10^3/uL MPV (7.5-11.0) fL Gran % (36.0-66.0) % Immature Gran % (Auto) (0.00-0.4) % Nucleat RBC Rel Count (0.00-0.1) % Eos # (Auto) (0-0.5) x10^3/uL Immature Gran # (Auto) (0.00-0.03) x10^3u/L Absolute Lymphs (auto) (1.0-4.6) x10^3/uL Absolute Monos (auto) (0.0-1.3) x10^3/uL Absolute Nucleated RBC (0.00-0.01) x10^3u/L Lymphocytes % (24.0-44.0) % Monocytes % (0.0-12.0) % Eosinophils % (0.00-5.0) % Basophils % (0.0-0.4) % Absolute Granulocytes (1.4-6.9) x10^3/uL Basophils # (0-0.4) x10^3/uL PT (9.4-12.5) SECONDS INR (0.8-3.0) D-Dimer (0.0-0.50) mg/L Sodium (137-145) mmol/L Potassium (3.5-5.1) mmol/L Chloride (98-107) mmol/L Carbon Dioxide (22-30) mmol/L Anion Gap (5-15) MEQ/L BUN (7-17) mg/dL Creatinine (0.52-1.04) mg/dL Estimated GFR ML/MIN Glucose (74-106) mg/dL Lactic Acid 1.4 (0.4-2.0) Calcium (8.4-10.2) mg/dL Magnesium (1.6-2.3) mg/dL Total Bilirubin (0.2-1.3) mg/dL AST (14-36) U/L ALT (0-35) U/L Alkaline Phosphatase (38-126) U/L Troponin I 0.015 < 0.012 (0.000-0.034) ng/mL NT-Pro-B Natriuret Pep (<300) pg/mL Serum Total Protein (6.3-8.2) g/dL Albumin (3.5-5.0) g/dL Influenza Type A Ag (NEGATIVE) Influenza Type B Ag (NEGATIVE) RSV (PCR) (Negative) SARS-CoV-2 (PCR) (NEGATIVE) 05/10/22 05/10/22 Range/Units 05:05 05:05 WBC 19.7 H (4.0-10.5) x10^3/uL RBC 4.07 L (4.1-5.4) x10^6/uL Hgb 13.2 (12.0-16.0) g/dL Hct 39.5 (35-47) % MCV 97.1 (78-100) fL MCH 32.4 H (26-32) pg MCHC 33.4 (32-36) g/dL RDW 13.2 (11.5-14.0) % Plt Count 211 (150-450) x10^3/uL MPV 9.9 (7.5-11.0) fL Gran % 94.4 H (36.0-66.0) % Immature Gran % (Auto) 0.6 H (0.00-0.4) % Nucleat RBC Rel Count 0.0 (0.00-0.1) % Eos # (Auto) 0 (0-0.5) x10^3/uL Immature Gran # (Auto) 0.11 H (0.00-0.03) x10^3u/L Absolute Lymphs (auto) 0.64 L (1.0-4.6) x10^3/uL Absolute Monos (auto) 0.32 (0.0-1.3) x10^3/uL Absolute Nucleated RBC 0.00 (0.00-0.01) x10^3u/L Lymphocytes % 3.2 L (24.0-44.0) % Monocytes % 1.6 (0.0-12.0) % Eosinophils % 0.0 (0.00-5.0) % Basophils % 0.2 (0.0-0.4) % Absolute Granulocytes 18.59 H (1.4-6.9) x10^3/uL Basophils # 0.04 (0-0.4) x10^3/uL PT (9.4-12.5) SECONDS INR (0.8-3.0) D-Dimer (0.0-0.50) mg/L Sodium 139 (137-145) mmol/L Potassium 4.1 (3.5-5.1) mmol/L Chloride 101 (98-107) mmol/L Carbon Dioxide 30 (22-30) mmol/L Anion Gap 12.2 (5-15) MEQ/L BUN 14 (7-17) mg/dL Creatinine 0.58 (0.52-1.04) mg/dL Estimated GFR > 60.0 ML/MIN Glucose 164 H (74-106) mg/dL Lactic Acid (0.4-2.0) Calcium 8.6 (8.4-10.2) mg/dL Magnesium (1.6-2.3) mg/dL Total Bilirubin 0.80 (0.2-1.3) mg/dL AST 25 (14-36) U/L ALT 15 (0-35) U/L Alkaline Phosphatase 63 (38-126) U/L Troponin I (0.000-0.034) ng/mL NT-Pro-B Natriuret Pep (<300) pg/mL Serum Total Protein 7.5 (6.3-8.2) g/dL Albumin 4.2 (3.5-5.0) g/dL Influenza Type A Ag (NEGATIVE) Influenza Type B Ag (NEGATIVE) RSV (PCR) (Negative) SARS-CoV-2 (PCR) (NEGATIVE) - Radiology Impressions Radiology Exams & Impressions: Radiology Procedures Category Date Time Status CHEST 1 VIEW (PORTABLE) Stat Exams 05/09/22 20:45 Completed - Other Procedures and Tests Respiratory Therapy 05/09/22 23:51 Oxygen Nasal Cannula 2 lpm Assessment/Plan (1) Right lower lobe pneumonia Current Visit: Yes Status: Acute Qualifiers: Pneumonia type: due to Pneumococcus Qualified Code(s): J13 - Pneumonia due to Streptococcus pneumoniae Assessment & Plan: Chief Complaint Diagnosis c/o shortness of breath for 1 day Allergies Allergy/AdvReac Type Severity Reaction Status Date / Time hydrocodone bitartrate Allergy Severe Itching Verified 05/09/22 20:34 [From Vicodin] Vital Signs (Last 24 hours) Temp Pulse Resp BP Pulse Ox 05/10/22 11:48 97.9 F 90 16 130/58 94 L 05/10/22 07:37 97 05/10/22 07:19 97.6 F 79 16 135/60 97 05/10/22 05:23 96.9 F 81 18 145/66 96 05/10/22 04:00 97.7 F 102 H 18 134/64 92 L 05/10/22 00:42 97.7 F 102 H 18 134/64 92 L 05/10/22 00:15 92 H 18 115/75 94 L 05/09/22 23:51 96 05/09/22 23:02 98 H 20 96 05/09/22 22:00 100 H 20 96 05/09/22 20:34 98.7 F 107 H 28 H 166/86 98 Current Medications Generic Name Dose Route Start Last Admin Trade Name Freq PRN Reason Stop Dose Admin Acetaminophen/Codeine Phosphate 1 tab 05/10/22 12:26 Codeine Phosphate/Apap #3 PO 06/09/22 12:25 Q6H PRN PRN PAIN Albuterol Sulfate 2 puff 05/10/22 15:00 Albuterol Common Canister Inhaler IH 06/09/22 14:59 QIDRT BETO Celecoxib 200 mg 05/10/22 22:00 Celecoxib 100 Mg Capsule PO 06/09/22 21:59 BID BETO Furosemide 20 mg 05/10/22 13:00 Furosemide 20 Mg Tablet PO 06/09/22 12:59 DAILY BETO Sodium Chloride 1,000 mls @ 100 mls/hr 05/09/22 20:45 05/10/22 07:57 Sodium Chloride 0.9% 1000 Ml IV 06/08/22 20:44 100 mls/hr .Q10H BETO Administration Azithromycin 500 mg in 250 mls @ 250 mls/hr 05/10/22 22:00 Zithromax 500 Mg/ 250 Ml Nacl Premix IV 06/09/22 21:59 Q24H22 [facility] Ceftriaxone Sodium/Dextrose 1 g in 50 mls @ 100 mls/hr 05/10/22 22:00 Rocephin 1 Gm-D5w 50 Ml Bag IV 05/13/22 21:59 Q24H22 [facility] Levothyroxine Sodium 150 mcg 05/10/22 13:00 Levothyroxine Sodium 150 Mcg Tablet PO 06/09/22 12:59 DAILY@0600 [facility] Nebivolol 5 mg 05/10/22 13:00 Nebivolol Hcl 5 Mg Tablet PO 06/09/22 12:59 DAILY [facility] Ondansetron HCl 4 mg 05/10/22 12:26 Zofran 4 Mg/Udtablet Orally Disintegrating PO 06/09/22 12:25 Q6H PRN PRN NAUSEA/VOMITING Pantoprazole Sodium 40 mg 05/10/22 13:00 Protonix (Pantoprazole) 40 Mg Tablet PO 06/09/22 12:59 DAILY [facility] Fluticasone/Salmeterol 2 puff 05/10/22 19:00 Fluticasone/Salmeterol 115/21 - 120 Puff Common Canister IH 06/09/22 18:59 BIDRT BETO Simvastatin 20 mg 05/10/22 22:00 Simvastatin 20 Mg Tablet PO 06/09/22 21:59 HS BETO Warfarin Sodium 6 mg 05/10/22 22:00 Warfarin Sodium 3 Mg Tablet PO 06/09/22 21:59 HS BETO Discontinued Medications Generic Name Dose Route Start Last Admin Trade Name Yeyo DONALD Reason Stop Dose Admin Methylprednisolone Sodium 0 mg 05/09/22 20:45 05/09/22 21:04 Succinate 125 mg/ Sterile IV 05/09/22 20:46 125 mg Water 2 ml STAT ONE Administration Ceftriaxone Sodium/Dextrose 1 g in 50 mls @ 100 mls/hr 05/09/22 22:18 05/09/22 23:12 Rocephin 1 Gm-D5w 50 Ml Bag IV 05/09/22 22:47 Infused STAT STA Infusion Azithromycin 500 mg in 250 mls @ 250 mls/hr 05/09/22 22:19 05/09/22 23:01 Zithromax 500 Mg/ 250 Ml Nacl Premix IV 05/09/22 23:18 250 mls/hr STAT ONE Administration Ceftriaxone Sodium/Dextrose Confirm 05/09/22 22:40 Rocephin 1 Gm-D5w 50 Ml Bag Administered 05/09/22 22:41 Dose 1 g in 50 mls @ ud IV .STK-MED ONE Azithromycin Confirm 05/09/22 22:59 Zithromax 500 Mg/ 250 Ml Nacl Premix Administered 05/09/22 23:00 Dose 500 mg in 250 mls @ ud IV .STK-MED ONE Methylprednisolone Sodium Succinate Confirm 05/09/22 21:01 Methylprednis Sod Succ 125 Mg/2 Ml Vial Administered 05/09/22 21:02 Dose 125 mg .ROUTE .STK-MED ONE Sterile Water Confirm 05/09/22 21:01 Water For Injection,Sterile 10 Ml Vial Administered 05/09/22 21:02 Dose 10 ml IJ .STK-MED ONE Intake & Output (Last 24 hours) 05/08/22 05/09/22 05/10/22 05/11/22 11:59 11:59 11:59 11:59 Intake Total 849 Output Total 200 Balance 649 Weight 109.9 kg Microbiology Results (Last 24 hours) 05/09/22 20:45 Blood Blood Culture Gram Stain - Pending 05/09/22 20:45 Blood Blood Culture - Pending Laboratory Results (Last 24 hours) 05/10/22 05/10/22 05/10/22 05:05 05:05 05:05 WBC 19.7 H RBC 4.07 L Hgb 13.2 Hct 39.5 MCV 97.1 MCH 32.4 H MCHC 33.4 RDW 13.2 Plt Count 211 MPV 9.9 Gran % 94.4 H Immature Gran % (Auto) 0.6 H Nucleat RBC Rel Count 0.0 Eos # (Auto) 0 Immature Gran # (Auto) 0.11 H Absolute Lymphs (auto) 0.64 L Absolute Monos (auto) 0.32 Absolute Nucleated RBC 0.00 Lymphocytes % 3.2 L Monocytes % 1.6 Eosinophils % 0.0 Basophils % 0.2 Absolute Granulocytes 18.59 H Basophils # 0.04 PT INR D-Dimer Sodium 139 Potassium 4.1 Chloride 101 Carbon Dioxide 30 Anion Gap 12.2 BUN 14 Creatinine 0.58 Estimated GFR > 60.0 Glucose 164 H Lactic Acid Calcium 8.6 Magnesium Total Bilirubin 0.80 AST 25 ALT 15 Alkaline Phosphatase 63 Troponin I < 0.012 NT-Pro-B Natriuret Pep Serum Total Protein 7.5 Albumin 4.2 Influenza Type A Ag Influenza Type B Ag RSV (PCR) SARS-CoV-2 (PCR) 05/10/22 05/09/22 05/09/22 00:50 23:19 21:12 WBC RBC Hgb Hct MCV MCH MCHC RDW Plt Count MPV Gran % Immature Gran % (Auto) Nucleat RBC Rel Count Eos # (Auto) Immature Gran # (Auto) Absolute Lymphs (auto) Absolute Monos (auto) Absolute Nucleated RBC Lymphocytes % Monocytes % Eosinophils % Basophils % Absolute Granulocytes Basophils # PT INR D-Dimer Sodium Potassium Chloride Carbon Dioxide Anion Gap BUN Creatinine Estimated GFR Glucose Lactic Acid 1.4 3.0 H Calcium Magnesium Total Bilirubin AST ALT Alkaline Phosphatase Troponin I 0.015 NT-Pro-B Natriuret Pep Serum Total Protein Albumin Influenza Type A Ag Influenza Type B Ag RSV (PCR) SARS-CoV-2 (PCR) 05/09/22 05/09/22 05/09/22 20:55 20:45 20:45 WBC RBC Hgb Hct MCV MCH MCHC RDW Plt Count MPV Gran % Immature Gran % (Auto) Nucleat RBC Rel Count Eos # (Auto) Immature Gran # (Auto) Absolute Lymphs (auto) Absolute Monos (auto) Absolute Nucleated RBC Lymphocytes % Monocytes % Eosinophils % Basophils % Absolute Granulocytes Basophils # PT 23.3 H INR 2.27 D-Dimer 0.26 Sodium Potassium Chloride Carbon Dioxide Anion Gap BUN Creatinine Estimated GFR Glucose Lactic Acid Calcium Magnesium Total Bilirubin AST ALT Alkaline Phosphatase Troponin I NT-Pro-B Natriuret Pep 506 Serum Total Protein Albumin Influenza Type A Ag NEGATIVE Influenza Type B Ag NEGATIVE RSV (PCR) NEGATIVE SARS-CoV-2 (PCR) NEGATIVE 05/09/22 05/09/22 20:45 20:45 WBC 18.2 H RBC 4.16 Hgb 13.2 Hct 41.1 MCV 98.8 MCH 31.7 MCHC 32.1 RDW 13.0 Plt Count 217 MPV 10.1 Gran % 87.8 H Immature Gran % (Auto) 0.5 H Nucleat RBC Rel Count 0.0 Eos # (Auto) 0.03 Immature Gran # (Auto) 0.09 H Absolute Lymphs (auto) 1.18 Absolute Monos (auto) 0.85 Absolute Nucleated RBC 0.00 Lymphocytes % 6.5 L Monocytes % 4.7 Eosinophils % 0.2 Basophils % 0.3 Absolute Granulocytes 15.98 H Basophils # 0.06 PT INR D-Dimer Sodium 139 Potassium 3.7 Chloride 99 Carbon Dioxide 31 H Anion Gap 12.6 BUN 17 Creatinine 0.62 Estimated GFR > 60.0 Glucose 167 H Lactic Acid Calcium 8.9 Magnesium 1.7 Total Bilirubin 0.90 AST 34 ALT 13 Alkaline Phosphatase 77 Troponin I < 0.012 NT-Pro-B Natriuret Pep Serum Total Protein 7.8 Albumin 4.4 Influenza Type A Ag Influenza Type B Ag RSV (PCR) SARS-CoV-2 (PCR) Orders (Last 24 hours) Category Date Time Status Up With Assistance ROUTINE Activity 05/09/22 23:51 Active Service Dispatcher STAT Care 05/09/22 20:59 Completed Code Status Order ROUTINE Care 05/09/22 23:52 Active EKG-ER Only STAT Care 05/09/22 20:45 Completed IV Care Q6H Care 05/09/22 23:52 Active IV Insertion STAT Care 05/09/22 20:58 Completed Neuro Checks Q6H Care 05/09/22 23:[address] in Observation ROUTINE Care 05/09/22 23:52 Active Oma Vasquez ROUTINE Care 05/09/22 23:51 Active Telemetry q6h Care 05/09/22 23:51 Active Vital Signs Q4H Care 05/09/22 23:51 Active Consistent Carbohydrate Diet 1800 Calorie Diet 05/10/22 Breakfast Active CHEST 1 VIEW (PORTABLE) Stat Exams 05/09/22 20:45 Completed BLOOD CULTURE Stat Lab 05/09/22 20:45 Received CBC W DIFF AM.LAB Lab 05/10/22 05:05 Completed CBC W DIFF Stat Lab 05/09/22 20:45 Completed CMP AM.LAB Lab 05/10/22 05:05 Completed CMP Stat Lab 05/09/22 20:45 Completed COVID/FLU/RSV Panel Stat Lab 05/09/22 20:55 Completed D-DIMER QUANTITATIVE Stat Lab 05/09/22 20:45 Completed Lactic Acid Stat Lab 05/09/22 21:12 Completed Lactic Acid Stat Lab 05/09/22 23:19 Completed MAGNESIUM Stat Lab 05/09/22 20:45 Completed NT PRO BNPII Stat Lab 05/09/22 20:45 Completed PROTIME WITH INR Stat Lab 05/09/22 20:45 Completed TROPONIN Q4H Lab 05/09/22 20:45 Completed TROPONIN Q4H Lab 05/10/22 00:50 Completed TROPONIN Q4H Lab 05/10/22 05:05 Completed Albuterol Common Canister [Ventolin Common Canister* Med 05/10/22 15:00 Active ] 2 puff IH QIDRT Azithromycin 500 mg/250 ml [Zithromax 500 MG/ 250 ML Med 05/10/22 22:00 Active NaCl Premix] 500 mg in 250 ml IV Q24H22 Azithromycin 500 mg/250 ml [Zithromax 500 MG/ 250 ML Med 05/09/22 22:19 Discontinued NaCl Premix] 500 mg in 250 ml IV STAT Azithromycin 500 mg/250 ml [Zithromax 500 MG/ 250 ML Med 05/09/22 22:59 Discontinued NaCl Premix] 500 mg in 250 ml IV UD Ceftriaxone 1 GM/50 ML PREMIX* [ROCEPHIN 1 Gm-D5w 50 ml Med 05/10/22 22:00 Active Bag] 1 g in 50 ml IV Q24H22 Ceftriaxone 1 GM/50 ML PREMIX* [ROCEPHIN 1 Gm-D5w 50 ml Med 05/09/22 22:18 Discontinued Bag] 1 g in 50 ml IV STAT Ceftriaxone 1 GM/50 ML PREMIX* [ROCEPHIN 1 Gm-D5w 50 ml Med 05/09/22 22:40 Discontinued Bag] 1 g in 50 ml IV UD Celecoxib 100 mg [celeBREX 100 MG] Med 05/10/22 22:00 Active 200 mg PO BID Codeine Phosphate/APAP #3 [Tylenol #3 Tablet] Med 05/10/22 12:26 Active 1 tab PO Q6H PRN PRN Fluticasone/Salmeterol 115/21 [Advair Hfa 115/21 Common Med 05/10/22 19:00 Active canister*] 2 puff IH BIDRT Furosemide 20 mg [Lasix 20 mg] Med 05/10/22 13:00 Active 20 mg PO DAILY Levothyroxine Sodium 150 Mcg [Synthroid 150 Mcg] Med 05/10/22 13:00 Active 150 mcg PO DAILY@0600 Methylprednis Sod Succ 125 mg* [solu-MEDROL] Med 05/09/22 21:01 Discontinued 125 mg .ROUTE .STK-MED ONE Methylprednis Sod Succ 125 mg* [solu-MEDROL] 125 mg Med 05/09/22 20:45 Discontinued Water For Injection,Sterile [Sterile H2O 10 ml] 2 ml IV STAT NaCl 0.9% 1000 ml [Sodium Chloride 0.9% 1000 ML] 1,000 Med 05/09/22 20:45 Active ml IV 100 mls/hr Nebivolol HCl 5 MG [Bystolic 5 MG] Med 05/10/22 13:00 Active 5 mg PO DAILY Ondansetron ODT 4 MG [Zofran Odt 4 mg] Med 05/10/22 12:26 Active 4 mg PO Q6H PRN PRN PANTOPRAZOLE 40 mg Tablet [Protonix 40MG Tablet] Med 05/10/22 13:00 Active 40 mg PO DAILY Simvastatin 20Mg [Zocor 20Mg] Med 05/10/22 22:00 Active 20 mg PO HS Warfarin Sodium 3 mg [Coumadin 3 MG] Med 05/10/22 22:00 Active 6 mg PO HS Water For Injection,Sterile [Sterile H2O 10 ml] Med 05/09/22 21:01 Discontinued 10 ml IJ .STK-MED ONE Oxygen Nasal Cannula 2 lpm RT 05/09/22 23:51 Active Pulse Oximetry .spot check RT 05/10/22 02:57 Active Patient Care Notes (Last 24 hours) 05/10/22 09:07 Nursing Note by Vilma Simms PATIENT REFUSING ACCU CHECK THIS AM AND DENIES ANY HISTORY OF DIABETES. ACCU CHECKS ACHS D/C'D PER DR. JAIN. Initialized on 05/10/22 09:07 - END OF NOTE 05/10/22 05:38 Nursing Note by Angelica Pratt Patient resting well; oxygen @2lNC in use while sleeping; baseline; no distress. Patient assisted to BSC during the night; tolerated well; incontinent urine x1 this morning. Initialized on 05/10/22 05:38 - END OF NOTE 05/10/22 00:30 (created 05/10/22 05:33) Nursing Admission Note by Angelica Pratt Patient received to the unit/room 106 fro ED via stretcher; Patient awake, alert, oriented x4; RA; no acute respiratory distress and the Patient denies any respiratory distress. Patient introduced to room; call light and personal items in reach; daughter at bedside. Initialized on 05/10/22 05:33 - END OF NOTE Code(s): J18.9 - PNEUMONIA, UNSPECIFIED ORGANISM
[2022-05-10] MEDS ORDERED: NON-FORMULARY ITEM (Albuterol Sulfate Mdi*** 8.5 GM Hfa.Aer.Ad) IH SCH (13:00)
[2022-05-10] MEDS: SYNTHROID 150 MCG PO SCH (14:04)
[2022-05-10] MEDS: LASIX 20 MG PO SCH (14:05)
[2022-05-10] MEDS: Protonix 40MG Tablet PO SCH (14:05)
[2022-05-10] MEDS: Bystolic 5 MG PO SCH (14:05)
[2022-05-10] MEDS ORDERED: VENTOLIN COMMON CANISTER IH SCH (15:00)
[2022-05-10] MEDS: PATIENT OWN MEDICATION IH SCH ×2 (15:21→18:55)
[2022-05-10] MEDS: Advair Hfa 115/21 Common canister IH SCH (18:54)
[2022-05-10] MEDS ORDERED: Coumadin 3 MG PO SCH (22:00)
[2022-05-10] MEDS ORDERED: NON-FORMULARY ITEM (Budesonide/Formoterol Fumarate [Symbicort 160-4.5 Mcg Inhaler] 10.2 GM IH SCH (22:00)
[2022-05-10] MEDS ORDERED: ROCEPHIN 1 Gm-D5w 50 ml Bag** 1 G/50 ML IVPB IV SCH (22:00)
[2022-05-10] MEDS ORDERED: Zithromax 500 MG/ 250 ML NaCl Premix 500 MG/250 ML IVPB IV SCH (22:00)
[2022-05-10] MEDS ORDERED: ZOCOR 20MG PO SCH (22:00)
[2022-05-10] MEDS ORDERED: NON-FORMULARY ITEM (Pravastatin Sodium [Pravastatin Sodium] 20 MG Tablet) PO SCH (22:00)
[2022-05-10] MEDS: celeBREX 100 MG PO SCH (22:01)
[2022-05-11] MEDS: Sodium Chloride 0.9% 1000 ML 1,000 ML IV SCH (05:14)
[2022-05-11] MEDS: SYNTHROID 150 MCG PO SCH (05:14)
[2022-05-11 05:30] LABS: Mean Cell Volume 101.2 fL (78-100); Mean Corpuscular Hemoglobin 31.8 pg (26-32); Mean Corpuscular Hgb Concent. 31.4 g/dL (32-36); Mean Platelet Volume 10.6 fL (7.5-11.0); Platelet Count 197 x10^3/uL (150-450); Red Blood Count 3.46 x10^6/uL (4.1-5.4); Red Cell Distribution Width 13.5 % (11.5-14.0); White Blood Count 9.9 x10^3/uL (4.0-10.5)
[2022-05-11 05:55] LABS: ALBUMIN 3.4 g/dL (3.5-5.0); ALKALINE PHOSPHATASE 51 U/L (38-126); BLOOD UREA NITROGEN 17 mg/dL (7-17); CHLORIDE 103 mmol/L (98-107); Carbon Dioxide 30 mmol/L (22-30); Creatinine 1 0.65 mg/dL (0.52-1.04); EST GLOMERULAR FILTRATION RATE > 60.0 ML/MIN; Glucose 113 mg/dL (74-106); Potassium 3.5 mmol/L (3.5-5.1); SGOT/AST 16 U/L (14-36); SGPT/ALT 9 U/L (0-35); SODIUM 139 mmol/L (137-145); Total Protein 6.2 g/dL (6.3-8.2)
[2022-05-11 07:14] VITALS: BP 111/61; PULSE 71
[2022-05-11] MEDS: PATIENT OWN MEDICATION IH SCH (07:25)
[2022-05-11] MEDS: Advair Hfa 115/21 Common canister IH SCH (07:25)
[2022-05-11 09:52] VITALS: O2SAT 94
[2022-05-11] MEDS ORDERED: NON-FORMULARY ITEM (Esomeprazole Magnesium [Nexium] 40 MG Capsule.Dr) PO SCH (10:00)
[2022-05-11] MEDS ORDERED: Lasix 40 MG PO SCH (10:00)
[2022-05-11] MEDS ORDERED: JANTOVEN PO SCH (10:00)
[2022-05-11] MEDS: Bystolic 5 MG PO SCH (10:09)
[2022-05-11] MEDS: celeBREX 100 MG PO SCH (10:09)
[2022-05-11] MEDS: Protonix 40MG Tablet PO SCH (10:09)
[2022-05-11] MEDS: LASIX 20 MG PO SCH (10:23)
--- NOTE | 2022-05-11 13:13 | PCM.DS ---
Discharge Summary Date of Admission: 05/10/22 00:28 Admitting Physician: RAMNADEEP PLASENCIA MD Primary Care Provider: DAREN JAIN Allergies Allergies hydrocodone bitartrate [From Vicodin] Allergy (Severe, Verified 05/09/22 20:34) Itching Hospital Summary - Hospital Course Hospital Course: Chief Complaint Diagnosis PNEUMONIA Allergies Allergy/AdvReac Type Severity Reaction Status Date / Time hydrocodone bitartrate Allergy Severe Itching Verified 05/09/22 20:34 [From Vicodin] Vital Signs (Last 24 hours) Temp Pulse Resp BP Pulse Ox 05/11/22 09:51 94 L 05/11/22 07:00 97.6 F 71 16 111/61 97 05/11/22 03:00 97.1 F 76 16 100/49 97 05/11/22 01:01 75 18 98 05/10/22 23:47 97.7 F 78 18 92/52 95 05/10/22 20:00 97.5 F 87 18 106/50 93 L 05/10/22 18:58 67 14 97 05/10/22 16:04 98.6 F 90 16 117/58 96 05/10/22 15:23 78 14 97 05/10/22 13:52 90 14 97 Home Medications Medication Instructions Recorded Confirmed Last Taken Type Cephalexin Mh 500 mg [Keflex 500 500 mg PO QID 10 Days #40 cap 05/11/22 Unknown Rx mg] Current Medications Discontinued Medications Generic Name Dose Route Start Last Admin Trade Name Freq PRN Reason Stop Dose Admin Acetaminophen/Codeine Phosphate 1 tab 05/10/22 12:26 05/11/22 02:12 Codeine Phosphate/Apap #3 PO 06/09/22 12:25 1 tab Q6H PRN PRN Administration PAIN Albuterol Sulfate 2 puff 05/10/22 15:00 Albuterol Common Canister Inhaler IH 06/09/22 14:59 QIDRT BETO Celecoxib 200 mg 05/10/22 22:00 05/11/22 10:09 Celecoxib 100 Mg Capsule PO 06/09/22 21:59 200 mg BID BETO Administration Methylprednisolone Sodium 0 mg 05/09/22 20:45 05/09/22 21:04 Succinate 125 mg/ Sterile IV 05/09/22 20:46 125 mg Water 2 ml STAT ONE Administration Furosemide 20 mg 05/10/22 13:00 05/11/22 10:23 Furosemide 20 Mg Tablet PO 06/09/22 12:59 Not Given DAILY BETO Sodium Chloride 1,000 mls @ 100 mls/hr 05/09/22 20:45 05/11/22 05:14 Sodium Chloride 0.9% 1000 Ml IV 06/08/22 20:44 100 mls/hr .Q10H BETO Administration Ceftriaxone Sodium/Dextrose 1 g in 50 mls @ 100 mls/hr 05/09/22 22:18 0 05/09/22 23:12 Rocephin 1 Gm-D5w 50 Ml Bag IV 05/09/22 22:47 Infused STAT STA Infusion Azithromycin 500 mg in 250 mls @ 250 mls/hr 05/09/22 22:19 05/09/22 23:01 Zithromax 500 Mg/ 250 Ml Nacl Premix IV 05/09/22 23:18 250 mls/hr STAT ONE Administration Ceftriaxone Sodium/Dextrose Confirm 05/09/22 22:40 Rocephin 1 Gm-D5w 50 Ml Bag Administered 05/09/22 22:41 Dose 1 g in 50 mls @ ud IV .STK-MED ONE Azithromycin Confirm 05/09/22 22:59 Zithromax 500 Mg/ 250 Ml Nacl Premix Administered 05/09/22 23:00 Dose 500 mg in 250 mls @ ud IV .STK-MED ONE Azithromycin 500 mg in 250 mls @ 250 mls/hr 05/10/22 22:00 05/10/22 22:04 Zithromax 500 Mg/ 250 Ml Nacl Premix IV 06/09/22 21:59 250 mls/hr Q24H22 BETO Administration Ceftriaxone Sodium/Dextrose 1 g in 50 mls @ 100 mls/hr 05/10/22 22:00 05/10/22 22:01 Rocephin 1 Gm-D5w 50 Ml Bag IV 05/13/22 21:59 100 mls/hr Q24H22 BETO Administration Levothyroxine Sodium 150 mcg 05/10/22 13:00 05/11/22 05:14 Levothyroxine Sodium 150 Mcg Tablet PO 06/09/22 12:59 150 mcg DAILY@0600 BETO Administration Methylprednisolone Sodium Succinate Confirm 05/09/22 21:01 Methylprednis Sod Succ 125 Mg/2 Ml Vial Administered 05/09/22 21:02 Dose 125 mg .ROUTE .STK-MED ONE Nebivolol 5 mg 05/10/22 13:00 05/11/22 10:09 Nebivolol Hcl 5 Mg Tablet PO 06/09/22 12:59 5 mg DAILY BETO Administration Ondansetron HCl 4 mg 05/10/22 12:26 Zofran 4 Mg/Udtablet Orally Disintegrating PO 06/09/22 12:25 Q6H PRN PRN NAUSEA/VOMITING Pantoprazole Sodium 40 mg 05/10/22 13:00 05/11/22 10:09 Protonix (Pantoprazole) 40 Mg Tablet PO 06/09/22 12:59 40 mg DAILY BETO Administration Proair - Patient Own 2 each 05/10/22 15:00 05/11/22 07:25 Med IH 06/09/22 14:59 2 each QIDRT BETO Administration Fluticasone/Salmeterol 2 puff 05/10/22 19:00 05/11/22 07:25 Fluticasone/Salmeterol 115/21 - 120 Puff Common Canister 06/09/22 18:59 2 puff BIDRT BETO Administration Simvastatin 20 mg 05/10/22 22:00 05/10/22 22:02 Simvastatin 20 Mg Tablet PO 06/09/22 21:59 20 mg HS BETO Administration Sterile Water Confirm 05/09/22 21:01 Water For Injection,Sterile 10 Ml Vial Administered 05/09/22 21:02 Dose 10 ml IJ .STK-MED ONE Warfarin Sodium 6 mg 05/10/22 22:00 05/10/22 22:02 Warfarin Sodium 3 Mg Tablet PO 06/09/22 21:59 6 mg HS BETO Administration Intake & Output (Last 24 hours) 05/09/22 05/10/22 05/11/22 05/12/22 11:59 11:59 11:59 11:59 Intake Total 849 5373 Output Total 200 2050 Balance 649 3323 Weight 109.9 kg Microbiology Results (Last 24 hours) 05/09/22 20:45 Blood Blood Culture Gram Stain - Pending 05/09/22 20:45 Blood Blood Culture - Preliminary NO GROWTH TO DATE Laboratory Results (Last 24 hours) 03/15/23 03/15/23 04:23 04:23 WBC 9.9 RBC 3.46 L Hgb 11.0 L Hct 35.0 MCV 101.2 H MCH 31.8 MCHC 31.4 L RDW 13.5 Plt Count 197 MPV 10.6 Sodium 139 Potassium 3.5 Chloride 103 Carbon Dioxide 30 Anion Gap 9.0 BUN 17 Creatinine 0.65 Estimated GFR > 60.0 Glucose 113 H Calcium 8.0 L Total Bilirubin 0.70 AST 16 ALT 9 Alkaline Phosphatase 51 Serum Total Protein 6.2 L Albumin 3.4 L Orders (Last 24 hours) Category Date Time Status Discharge Routine Discharge 05/11/22 Ordered CBC AM.LAB Lab 05/11/22 04:23 Completed CMP AM.LAB Lab 05/11/22 04:23 Completed Albuterol Common Canister [Ventolin Common Canister* Med 05/10/22 15:00 Discontinued ] 2 puff IH QIDRT Azithromycin 500 mg/250 ml [Zithromax 500 MG/ 250 ML Med 05/10/22 22:00 Discontinued NaCl Premix] 500 mg in 250 ml IV Q24H22 Ceftriaxone 1 GM/50 ML PREMIX* [ROCEPHIN 1 Gm-D5w 50 ml Med 05/10/22 22:00 Discontinued Bag] 1 g in 50 ml IV Q24H22 Celecoxib 100 mg [celeBREX 100 MG] Med 05/10/22 22:00 Discontinued 200 mg PO BID Codeine Phosphate/APAP #3 [Tylenol #3 Tablet] Med 05/10/22 12:26 Discontinued 1 tab PO Q6H PRN PRN Fluticasone/Salmeterol 115/21 [Advair Hfa 115/21 Common Med 05/10/22 19:00 Discontinued canister*] 2 puff IH BIDRT Furosemide 20 mg [Lasix 20 mg] Med 05/10/22 13:00 Discontinued 20 mg PO DAILY Levothyroxine Sodium 150 Mcg [Synthroid 150 Mcg] Med 05/10/22 13:00 Discontinued 150 mcg PO DAILY@0600 Nebivolol HCl 5 MG [Bystolic 5 MG] Med 05/10/22 13:00 Discontinued 5 mg PO DAILY Ondansetron ODT 4 MG [Zofran Odt 4 mg] Med 05/10/22 12:26 Discontinued 4 mg PO Q6H PRN PRN PANTOPRAZOLE 40 mg Tablet [Protonix 40MG Tablet] Med 05/10/22 13:00 Discontinued 40 mg PO DAILY Patient Own Med [Patient Own Medication] Med 05/10/22 15:00 Discontinued 2 each IH QIDRT Simvastatin 20Mg [Zocor 20Mg] Med 05/10/22 22:00 Discontinued 20 mg PO HS Warfarin Sodium 3 mg [Coumadin 3 MG] Med 05/10/22 22:00 Discontinued 6 mg PO HS Respiratory MDI QID RT 05/11/22 01:01 Completed Respiratory Therapy Assessment DAILY RT 05/10/22 13:49 Completed Patient Care Notes (Last 24 hours) 05/11/22 09:51 Case Management Note by Lilian Reyes S/W PATIENT ABOUT PLANS AT [place]- SHE CONTINUES TO DENY ANY NEW NEEDS. SHE LIVES WITH HER DAUGHTER AND REPORTS SHE HAS LOTS OF FAMILY TO ASSIST HER IF NEEDED. SHE PLANS TO RETURN HOME TO HER PLF Initialized on 05/11/22 09:51 - END OF NOTE 05/11/22 09:35 Nursing Note by Vilma Simms RECEIVED ORDER FROM DR. JAIN TO DISCHARGE HOME WITH SCRIPT FOR KEFLEX 500MG PO QID X 10 DAYS. Initialized on 05/11/22 09:35 - END OF NOTE 05/11/22 00:47 Nursing Note by Angelica Pratt No signs/symptoms of patient needing suction; respirations quiet; patient resting quietly. Initialized on 05/11/22 00:47 - END OF NOTE 05/10/22 15:38 Physical Therapy Note by Sandrine(L#[id number])Kiki RECEIVED P.T. ORDER FOR W/C L LL. REMOVED TELFA AND GAUZE DRESSING. CLEANSED L LATERAL LL W/ SOAP AND WATER. MIN-NO DRAINAGE PRESENT. SKIN TEAR PRESENT ON ADMISSION APPEARS TO BE CLOSED. DRY, FLAKY SKIN NOTED. ERYTHEMA PRESENT L LL IN CIRCUMFERENCE JUST PROXIMAL TO L LATERAL MALLELOLUS. APPLIED BARRIER OINTMENT FOR SKIN HYDRATION. SKILLED INTERVENTION NOT WARRANTED D/T LACK OF OPEN WOUND. ADVISED NSG TO CONT. W/ BARRIER CREAM APPLICATION 1-2X/DAY. WILL MONITOR DURING STAY. Initialized on 05/10/22 15:38 - END OF NOTE 05/10/22 14:27 Nursing Note by Vilma Simms ROUNDED ON PATIENT WITH DR. JAIN. ASSESSED SKIN TEAR TO LLE. RECEIVED THE FOLLOWING ORDERS: PT TO SCREEN FOR WOUND CARE, CBC AND CMP IN THE AM. Initialized on 05/10/22 14:27 - END OF NOTE - Vitals & Intake/Output Vital Signs: Vital Signs Temperature 97.6 F 05/11/22 07:00 Pulse Rate 71 05/11/22 07:00 Respiratory Rate 16 05/11/22 07:00 Blood Pressure 111/61 05/11/22 07:00 O2 Sat by Pulse Oximetry 94 L 05/11/22 09:51 Intake & Output: Intake & Output 05/09/22 05/10/22 05/11/22 05/12/22 11:59 11:59 11:59 11:59 Intake Total 849 5373 Output Total 200 2050 Balance 649 3323 Weight 109.9 kg - Lab Result Diagrams: 05/11/22 04:23 05/11/22 04:23 Lab Results-Last 24 Hrs: Lab Results-Last 24 Hours 05/11/22 05/11/22 Range/Units 04:23 04:23 WBC 9.9 (4.0-10.5) x10^3/uL RBC 3.46 L (4.1-5.4) x10^6/uL Hgb 11.0 L (12.0-16.0) g/dL Hct 35.0 (35-47) % MCV 101.2 H (78-100) fL MCH 31.8 (26-32) pg MCHC 31.4 L (32-36) g/dL RDW 13.5 (11.5-14.0) % Plt Count 197 (150-450) x10^3/uL MPV 10.6 (7.5-11.0) fL Sodium 139 (137-145) mmol/L Potassium 3.5 (3.5-5.1) mmol/L Chloride 103 (98-107) mmol/L Carbon Dioxide 30 (22-30) mmol/L Anion Gap 9.0 (5-15) MEQ/L BUN 17 (7-17) mg/dL Creatinine 0.65 (0.52-1.04) mg/dL Estimated GFR > 60.0 ML/MIN Glucose 113 H (74-106) mg/dL Calcium 8.0 L (8.4-10.2) mg/dL Total Bilirubin 0.70 (0.2-1.3) mg/dL AST 16 (14-36) U/L ALT 9 (0-35) U/L Alkaline Phosphatase 51 (38-126) U/L Serum Total Protein 6.2 L (6.3-8.2) g/dL Albumin 3.4 L (3.5-5.0) g/dL Micro Results-Entire Visit: Microbiology 05/09/22 20:45 Blood Culture - Preliminary Blood NO GROWTH TO DATE - Radiology Exams Ordered Rad Exams-Entire Visit: Radiology Procedures Category Date Time Status CHEST 1 VIEW (PORTABLE) Stat Exams 05/09/22 20:45 Completed - Procedures and Test Procedures and Tests throughout Hospitalization: Therapy Orders & Screens 05/09/22 23:51 Oxygen Nasal Cannula 2 lpm Comment: 05/10/22 13:49 Respiratory Therapy Assessment DAILY Comment: Diagnosis: c/o shortness of breath for 1 day 05/11/22 01:01 Respiratory MDI QID Comment: Diagnosis: PNEUMONIA Discharge Exam General Appearance: no apparent distress, alert Neurologic Exam: alert, oriented x 3, cooperative, normal mood/affect, nml cerebellar function, sensation nml, No motor deficits Eye Exam: PERRL, EOMI, eyes nml inspection Ears, Nose, Throat Exam: normal ENT inspection, pharynx normal, moist mucous membranes Neck Exam: normal inspection, non-tender, supple, full range of motion Respiratory Exam: normal breath sounds, lungs clear, No respiratory distress Cardiovascular Exam: regular rate/rhythm, normal heart sounds Gastrointestinal/Abdomen Exam: soft, No tenderness, No mass Pelvic Exam: deferred Rectal Exam: deferred Back Exam: normal inspection, normal range of motion, No CVA tenderness, No vertebral tenderness Extremity Exam: normal inspection, normal range of motion Skin Exam: normal color, warm, dry Final Diagnosis/Problem List - Final Discharge Diagnosis/Problem (1) Right lower lobe pneumonia Status: Acute Priority: High Assessment & Plan: Last Vital Signs Temp 97.6 F 05/11/22 07:00 Pulse 71 05/11/22 07:00 Resp 16 05/11/22 07:00 BP 111/61 05/11/22 07:00 Pulse Ox 94 L 05/11/22 09:51 Allergies hydrocodone bitartrate [From Vicodin] Allergy (Severe, Verified 05/09/22 20:34) Itching Intake & Output 05/11/22 05/12/22 11:59 11:59 Intake Total 5373 Output Total 2050 Balance 3323 Orders 05/11/22 Discharge Routine Lab Tests 05/11/22 05/11/22 04:23 04:23 WBC 9.9 RBC 3.46 L Hgb 11.0 L Hct 35.0 MCV 101.2 H MCH 31.8 MCHC 31.4 L RDW 13.5 Plt Count 197 MPV 10.6 Sodium 139 Potassium 3.5 Chloride 103 Carbon Dioxide 30 Anion Gap 9.0 BUN 17 Creatinine 0.65 Estimated GFR > 60.0 Glucose 113 H Calcium 8.0 L Total Bilirubin 0.70 AST 16 ALT 9 Alkaline Phosphatase 51 Serum Total Protein 6.2 L Albumin 3.4 L Microbiology 05/09/22 20:45 Blood Blood Culture - Preliminary NO GROWTH TO DATE Code(s): J18.9 - PNEUMONIA, UNSPECIFIED ORGANISM (2) Venous stasis dermatitis of left lower extremity Status: Acute Priority: High Assessment & Plan: Chief Complaint Diagnosis PNEUMONIA Allergies Allergy/AdvReac Type Severity Reaction Status Date / Time hydrocodone bitartrate Allergy Severe Itching Verified 05/09/22 20:34 [From Vicodin] Vital Signs (Last 24 hours) Temp Pulse Resp BP Pulse Ox 05/11/22 09:51 94 L 05/11/22 07:00 97.6 F 71 16 111/61 97 05/11/22 03:00 97.1 F 76 16 100/49 97 05/11/22 01:01 75 18 98 05/10/22 23:47 97.7 F 78 18 92/52 95 05/10/22 20:00 97.5 F 87 18 106/50 93 L 05/10/22 18:58 67 14 97 05/10/22 16:04 98.6 F 90 16 117/58 96 05/10/22 15:23 78 14 97 05/10/22 13:52 90 14 97 Home Medications Medication Instructions Recorded Confirmed Last Taken Type Cephalexin Mh 500 mg [Keflex 500 500 mg PO QID 10 Days #40 cap 05/11/22 Unknown Rx mg] Current Medications Discontinued Medications Generic Name Dose Route Start Last Admin Trade Name Freq PRN Reason Stop Dose Admin Acetaminophen/Codeine Phosphate 1 tab 05/10/22 12:26 05/11/22 02:12 Codeine Phosphate/Apap #3 PO 06/09/22 12:25 1 tab Q6H PRN PRN Administration PAIN Albuterol Sulfate 2 puff 05/10/22 15:00 Albuterol Common Canister Inhaler IH 06/09/22 14:59 QIDRT BETO Celecoxib 200 mg 05/10/22 22:00 05/11/22 10:09 Celecoxib 100 Mg Capsule PO 06/09/22 21:59 200 mg BID BETO Administration Methylprednisolone Sodium 0 mg 05/09/22 20:45 05/09/22 21:04 Succinate 125 mg/ Sterile IV 05/09/22 20:46 125 mg Water 2 ml STAT ONE Administration Furosemide 20 mg 05/10/22 13:00 05/11/22 10:23 Furosemide 20 Mg Tablet PO 06/09/22 12:59 Not Given DAILY BETO Sodium Chloride 1,000 mls @ 100 mls/hr 05/09/22 20:45 05/11/22 05:14 Sodium Chloride 0.9% 1000 Ml IV 06/08/22 20:44 100 mls/hr .Q10H BETO Administration Ceftriaxone Sodium/Dextrose 1 g in 50 mls @ 100 mls/hr 05/09/22 22:18 05/09/22 23:12 Rocephin 1 Gm-D5w 50 Ml Bag IV 05/09/22 22:47 Infused STAT STA Infusion Azithromycin 500 mg in 250 mls @ 250 mls/hr 05/09/22 22:19 05/09/22 23:01 Zithromax 500 Mg/ 250 Ml Nacl Premix IV 05/09/22 23:18 250 mls/hr STAT ONE Administration Ceftriaxone Sodium/Dextrose Confirm 05/09/22 22:40 Rocephin 1 Gm-D5w 50 Ml Bag Administered 05/09/22 22:41 Dose 1 g in 50 mls @ ud IV .STK-MED ONE Azithromycin Confirm 05/09/22 22:59 Zithromax 500 Mg/ 250 Ml Nacl Premix Administered 05/09/22 23:00 Dose 500 mg in 250 mls @ ud IV .STK-MED ONE Azithromycin 500 mg in 250 mls @ 250 mls/hr 05/10/22 22:00 05/10/22 22:04 Zithromax 500 Mg/ 250 Ml Nacl Premix IV 06/09/22 21:59 250 mls/hr Q24H22 BETO Administration Ceftriaxone Sodium/Dextrose 1 g in 50 mls @ 100 mls/hr 05/10/22 22:00 05/10/22 22:01 Rocephin 1 Gm-D5w 50 Ml Bag IV 05/13/22 21:59 100 mls/hr Q24H22 BETO Administration Levothyroxine Sodium 150 mcg 05/10/22 13:00 05/11/22 05:14 Levothyroxine Sodium 150 Mcg Tablet PO 06/09/22 12:59 150 mcg DAILY@0600 BETO Administration Methylprednisolone Sodium Succinate Confirm 05/09/22 21:01 Methylprednis Sod Succ 125 Mg/2 Ml Vial Administered 05/09/22 21:02 Dose 125 mg .ROUTE .STK-MED ONE Nebivolol 5 mg 05/10/22 13:00 05/11/22 10:09 Nebivolol Hcl 5 Mg Tablet PO 06/09/22 12:59 5 mg DAILY BETO Administration Ondansetron HCl 4 mg 05/10/22 12:26 Zofran 4 Mg/Udtablet Orally Disintegrating PO 06/09/22 12:25 Q6H PRN PRN NAUSEA/VOMITING Pantoprazole Sodium 40 mg 05/10/22 13:00 05/11/22 10:09 Protonix (Pantoprazole) 40 Mg Tablet PO 06/09/22 12:59 40 mg DAILY BETO Administration Proair - Patient Own 2 each 05/10/22 15:00 05/11/22 07:25 Med IH 06/09/22 14:59 2 each QIDRT BETO Administration Fluticasone/Salmeterol 2 puff 05/10/22 19:00 05/11/22 07:25 Fluticasone/Salmeterol 115/21 - 120 Puff Common Canister IH 06/09/22 18:59 2 puff BIDRT BETO Administration Simvastatin 20 mg 05/10/22 22:00 05/10/22 22:02 Simvastatin 20 Mg Tablet PO 06/09/22 21:59 20 mg HS BETO Administration Sterile Water Confirm 05/09/22 21:01 Water For Injection,Sterile 10 Ml Vial Administered 05/09/22 21:02 Dose 10 ml IJ .STK-MED ONE Warfarin Sodium 6 mg 05/10/22 22:00 05/10/22 22:02 Warfarin Sodium 3 Mg Tablet PO 06/09/22 21:59 6 mg HS BETO Administration Intake & Output (Last 24 hours) 05/09/22 05/10/22 05/11/22 05/12/22 11:59 11:59 11:59 11:59 Intake Total 849 5373 Output Total 200 2050 Balance 649 3323 Weight 109.9 kg Microbiology Results (Last 24 hours) 05/09/22 20:45 Blood Blood Culture Gram Stain - Pending 05/09/22 20:45 Blood Blood Culture - Preliminary NO GROWTH TO DATE Laboratory Results (Last 24 hours) 05/11/22 05/11/22 04:23 04:23 WBC 9.9 RBC 3.46 L Hgb 11.0 L Hct 35.0 MCV 101.2 H MCH 31.8 MCHC 31.4 L RDW 13.5 Plt Count 197 MPV 10.6 Sodium 139 Potassium 3.5 Chloride 103 Carbon Dioxide 30 Anion Gap 9.0 BUN 17 Creatinine 0.65 Estimated GFR > 60.0 Glucose 113 H Calcium 8.0 L Total Bilirubin 0.70 AST 16 ALT 9 Alkaline Phosphatase 51 Serum Total Protein 6.2 L Albumin 3.4 L Orders (Last 24 hours) Category Date Time Status Discharge Routine Discharge 05/11/22 Ordered CBC AM.LAB Lab 05/11/22 04:23 Completed CMP AM.LAB Lab 05/11/22 04:23 Completed Albuterol Common Canister [Ventolin Common Canister* Med 05/10/22 15:00 Discontinued ] 2 puff IH QIDRT Azithromycin 500 mg/250 ml [Zithromax 500 MG/ 250 ML Med 05/10/22 22:00 Discontinued NaCl Premix] 500 mg in 250 ml IV Q24H22 Ceftriaxone 1 GM/50 ML PREMIX* [ROCEPHIN 1 Gm-D5w 50 ml Med 05/10/22 22:00 Discontinued Bag] 1 g in 50 ml IV Q24H22 Celecoxib 100 mg [celeBREX 100 MG] Med 05/10/22 22:00 Discontinued 200 mg PO BID Codeine Phosphate/APAP #3 [Tylenol #3 Tablet] Med 05/10/22 12:26 Discontinued 1 tab PO Q6H PRN PRN Fluticasone/Salmeterol 115/21 [Advair Hfa 115/21 Common Med 05/10/22 19:00 Discontinued canister*] 2 puff IH BIDRT Furosemide 20 mg [Lasix 20 mg] Med 05/10/22 13:00 Discontinued 20 mg PO DAILY Levothyroxine Sodium 150 Mcg [Synthroid 150 Mcg] Med 05/10/22 13:00 Discontinued 150 mcg PO DAILY@0600 Nebivolol HCl 5 MG [Bystolic 5 MG] Med 05/10/22 13:00 Discontinued 5 mg PO DAILY Ondansetron ODT 4 MG [Zofran Odt 4 mg] Med 05/10/22 12:26 Discontinued 4 mg PO Q6H PRN PRN PANTOPRAZOLE 40 mg Tablet [Protonix 40MG Tablet] Med 05/10/22 13:00 D iscontinued 40 mg PO DAILY Patient Own Med [Patient Own Medication] Med 05/10/22 15:00 Discontinued 2 each IH QIDRT Simvastatin 20Mg [Zocor 20Mg] Med 05/10/22 22:00 Discontinued 20 mg PO HS Warfarin Sodium 3 mg [Coumadin 3 MG] Med 05/10/22 22:00 Discontinued 6 mg PO HS Respiratory MDI QID RT 05/11/22 01:01 Completed Respiratory Therapy Assessment DAILY RT 05/10/22 13:49 Completed Patient Care Notes (Last 24 hours) 05/11/22 09:51 Case Management Note by Lilian Reyes S/W PATIENT ABOUT PLANS AT [place]- SHE CONTINUES TO DENY ANY NEW NEEDS. SHE LIVES WITH HER DAUGHTER AND REPORTS SHE HAS LOTS OF FAMILY TO ASSIST HER IF NEEDED. SHE PLANS TO RETURN HOME TO HER PLF Initialized on 05/11/22 09:51 - END OF NOTE 05/11/22 09:35 Nursing Note by Vilma Simms RECEIVED ORDER FROM DR. JAIN TO DISCHARGE HOME WITH SCRIPT FOR KEFLEX 500MG PO QID X 10 DAYS. Initialized on 05/11/22 09:35 - END OF NOTE 05/11/22 00:47 Nursing Note by Angelica Pratt No signs/symptoms of patient needing suction; respirations quiet; patient resting quietly. Initialized on 05/11/22 00:47 - END OF NOTE 05/10/22 15:38 Physical Therapy Note by Sandrine(Carlie#[id number])Kiki RECEIVED P.T. ORDER FOR W/C L LL. REMOVED TELFA AND GAUZE DRESSING. CLEANSED L LATERAL LL W/ SOAP AND WATER. MIN-NO DRAINAGE PRESENT. SKIN TEAR PRESENT ON ADMISSION APPEARS TO BE CLOSED. DRY, FLAKY SKIN NOTED. ERYTHEMA PRESENT L LL IN CIRCUMFERENCE JUST PROXIMAL TO L LATERAL MALLELOLUS. APPLIED BARRIER OINTMENT FOR SKIN HYDRATION. SKILLED INTERVENTION NOT WARRANTED D/T LACK OF OPEN WOUND. ADVISED NSG TO CONT. W/ BARRIER CREAM APPLICATION 1-2X/DAY. WILL MONITOR DURING STAY. Initialized on 05/10/22 15:38 - END OF NOTE 05/10/22 14:27 Nursing Note by Vilma Simms ROUNDED ON PATIENT WITH DR. JAIN. ASSESSED SKIN TEAR TO LLE. RECEIVED THE FOLLOWING ORDERS: PT TO SCREEN FOR WOUND CARE, CBC AND CMP IN THE AM. Initialized on 05/10/22 14:27 - END OF NOTE Code(s): I87.2 - VENOUS INSUFFICIENCY (CHRONIC) (PERIPHERAL) - Discharge Discharge Date: 05/11/22 Disposition: Home, Self-Care Condition: Stable Prescriptions: New Cephalexin Mh 500 mg [Keflex 500 mg] 500 mg PO QID 10 Days #40 cap Continue Celecoxib 100 mg [celeBREX 100 MG] 200 mg PO BID Esomeprazole Magnesium [Nexium] 20 mg PO DAILY Levothyroxine Sodium 150 Mcg [Synthroid 150 Mcg] 150 mcg PO DAILY Nebivolol HCl 5 MG [Bystolic 5 MG] 5 mg PO DAILY Warfarin Sodium 5 mg [Jantoven] 6 mg PO DAILY Pravastatin Sodium 20 mg PO HS Furosemide 40 mg [Lasix 40 MG] 20 mg PO DAILY Albuterol Sulfate Mdi [Proair Hfa MDI] 8.5 gm IH QID Budesonide/Formoterol Fumarate [Symbicort 160-4.5 Mcg Inhaler] 10.2 gm IH BID Ondansetron ODT 4 MG [Zofran Odt 4 mg] 4 mg PO Q6H PRN PRN #10 tab.rapdis PRN Reason: Nausea/Vomiting Acetaminophen with Codeine [Tylenol with Codeine #3 Tablet] 1 each PO Q6H PRN #10 tablet PRN Reason: Pain Instructions: Pneumonia, Adult (DC), Cellulitis (Skin Infection), Adult (DC) Follow up with: DAREN JAIN MD [Primary Care Provider] - 05/18/22 9:30 am ([facility]) Forms: Discharge Instructions
== END 2022-05-11 10:52 | disposition home or self-care (01) ==
LOC: ED 20:33 → MED SURG 05-10 00:28
PROVIDERS: ADMIT Internal Medicine; ATTEND General Practice
DX: J18.9 Pneumonia, unspecified organism (principal); I87.2 Venous insufficiency (chronic) (peripheral); I11.0 Hypertensive heart disease with heart failure; I50.9 Heart failure, unspecified; I49.9 Cardiac arrhythmia, unspecified; Z79.899 Other long term (current) drug therapy; Z79.01 Long term (current) use of anticoagulants; Z20.828 Contact with and (suspected) exposure to other viral communicable diseases
CPT/HCPCS: 0241U; 36000; 36415; 71045; 80053; 83605; 83735; 83880; 84484; 85025; 85027; 85379; 85610; 87040; 93005; 93041; 94640; 94760; 96365; 96366; 96374; 99285; 93268; J0456; J0696; J2930; A9270-GY; G0378

== ENCOUNTER 2022-07-30 10:35 | Emergency (ER) | payer MEDICARE, OTHER ==
[2022-07-30 11:18] VITALS: BP 138/76; PULSE 75; O2SAT 95
[2022-07-30] MEDS ORDERED: TORAdol 30 mg Injection IM ONE (11:31)
[2022-07-30] MEDS ORDERED: Zanaflex 4 MG PO ONE (11:31)
--- NOTE | 2022-07-30 11:32 | ERPHSYRPT ---
- History of Present Illness Time Seen by Provider: 07/30/22 11:32 Source: patient Exam Limitations: no limitations Patient Subjective Stated Complaint: Pt has been taking celebrex 200mg twice a day for many years for her arthritis and Dr Jain changed it to 50 mg twice a day for the past 2-3 weeks and her back pain has been getting worse, and so on he changed it to 100mg twice a day for a week and then go down to 50 mg twice a day because she is on coumadin, she has also been on coumadin for many many years and she hasn't had any issues Triage Nursing Assessment: Pt brought to the ER by her daughter, cassandra lundberg, rates pain as 12/06, had x-ray Monday at [facility] and it was negative, denies any new injuries, pt has a hx of a broken back many years ago that has turned into arthritis and this is a chronic problem that has been under control until now, pulses normal, skin n/w/d, no difficulty with breathing, pt tests INR at home and states that it was 2.4 this morning Physician History: Pt has been taking celebrex 200mg twice a day for many years for her arthritis and Dr Jain changed it to 50 mg twice a day for the past 2-3 weeks and her back pain has been getting worse, and so on he changed it to 100mg twice a day for a week and then go down to 50 mg twice a day because she is on coumadin, she has also been on coumadin for many many years and she hasn't had any issues. C/o lower back pain for several years No radiation. Pain described as sharp. Exacerbated by bending. Relieved by rest. No associated symptoms like fever, bowel incontinence, bladder incontinence, neurologic deficits or saddle anesthesia. No history of steroid use, malignancy, infection or depression. Denies any history of trauma or occupational injury. Timing/Duration: yesterday Method of Injury: other (chronic) Quality: sharp, throbbing Back Pain Location: lumbar spine, paraspinous muscles Severity of Pain-Max: severe Severity of Pain-Current: severe Modifying Factors: Worsens With: movement Associated Symptoms: denies symptoms Previous symptoms: same symptoms as today Allergies/Adverse Reactions: hydrocodone bitartrate [From Vicodin] Allergy (Severe, Verified 08/01/22 21:32) Itching Home Medications: Celecoxib 100 mg [celeBREX 100 MG] 50 mg PO BID 12/30/12 [History] Esomeprazole Magnesium [Nexium] 20 mg PO DAILY 12/30/12 [History] Levothyroxine Sodium 150 Mcg [Synthroid 150 Mcg] 150 mcg PO DAILY 12/30/12 [History] Warfarin Sodium 5 mg [Jantoven] 6 mg PO DAILY 12/30/12 [History] Albuterol Sulfate Mdi [Proair Hfa MDI] 8.5 gm IH QID 06/03/18 [History] Budesonide/Formoterol Fumarate [Symbicort 160-4.5 Mcg Inhaler] 10.2 gm IH BID 06/03/18 [History] Furosemide 40 mg [Lasix 40 MG] 20 mg PO DAILY 06/03/18 [History] Pravastatin Sodium 20 mg PO HS 06/03/18 [History] Hx Tetanus, Diphtheria Vaccination/Date Given: No Hx Influenza Vaccination/Date Given: Yes Hx Pneumococcal Vaccination/Date Given: Yes Immunizations Up to Date: Yes Travel Risk - International Travel Have you traveled outside of the country in past 3 weeks: No - Coronavirus Screening Are you exhibiting any of the following symptoms?: No Close contact with a COVID-19 positive Pt in past 14-21 Days: No - Vaccine Status Have you recieved a Covid-19 vaccination: Yes 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 - Vaccination Dates Date of 2cond Vaccination (if applicable): 12/11/2020 - Review of Systems Constitutional: No Symptoms Eyes: No Symptoms Musculoskeletal: Back Pain, No Neck Pain, No Fall, No Injury Skin: No Symptoms Neurological: No Symptoms - Past Medical History Pertinent Past Medical History: Yes Neurological History: No Pertinent History ENT History: Cataracts Cardiac History: Arrhythmia, Congestive Heart Failure, Hypertension Respiratory History: Asthma, CHF, COPD Endocrine Medical History: Hypothyroidism Musculoskeletal History: Arthritis, Fractures, Osteoporosis GI Medical History: GERD, Hernia History: No Pertinent History Psycho-Social History: No Pertinent History Female Reproductive Disorders: Fibroids, Other Other Medical History: BROKEN BACK IN PAST - Past Surgical History Past Surgical History: Yes Neuro Surgical History: No Pertinent History Cardiac: No Pertinent History Respiratory: No Pertinent History Gastrointestinal: Hernia Repair Genitourinary: No Pertinent History Musculoskeletal: Joint Replacement Female Surgical History: Hysterectomy Other Surgical History: Right knee replacement 2009. - Social History Smoking Status: Never smoker Exposure to second hand smoke: No Drug Use: none Patient Lives Alone: No - Nursing Vital Signs Nursing Vital Signs: Initial Vital Signs Temperature 98.2 F 07/30/22 11:04 Pulse Rate 75 07/30/22 11:04 Blood Pressure 138/76 07/30/22 11:04 O2 Sat by Pulse Oximetry 95 07/30/22 11:04 Pain Scale Pain Intensity [Lower 10 Posterior Back] Pain Intensity 10 - Physical Exam General Appearance: moderate distress, other (in wheelchair) Back Exam: normal inspection, decreased range of motion, muscle spasm, point tenderness (lumbar spine) Neurologic Exam: alert, oriented x 3, cooperative, sensation nml, No motor deficits Skin Exam: normal color, warm, dry SpO2 Interpretation: normal SpO2: 95 O2 Delivery: Room Air Comments: Rising from chair: unable Ambulation: unable Flexibility of spine: limited. + midline spine tenderness. Tenderness to palpation on bilateral paraspinal area. ROM: limited extension of the leg at the knee. Full dorsiflexion of the great toe. Full plantar flexion of toe and foot. Sensation on lower extremities: normal. Strength on lower extremities: normal. Positive straight leg raise test. - Course Nursing assessment & vital signs reviewed: Yes Ordered Tests: Medication Summary Discontinued Medications Generic Name Dose Route Start Last Admin Trade Name Freq PRN Reason Stop Dose Admin Ketorolac Tromethamine 60 mg 07/30/22 11:31 07/30/22 11:41 Ketorolac Tromethamine 30 Mg/Ml Inj IM 07/30/22 11:32 60 mg STAT ONE Administration Ketorolac Tromethamine Confirm 07/30/22 11:37 Ketorolac Tromethamine 30 Mg/Ml Inj Administered 07/30/22 11:38 Dose 60 mg .ROUTE .STK-MED ONE Tizanidine HCl 4 mg 07/30/22 11:31 07/30/22 11:49 Tizanidine Hcl 4 Mg Tablet PO 07/30/22 11:32 4 mg ONCE ONE Administration - Progress Progress: improved Progress Note: Patient given Toradol and Tizanadine which provided rapid relief for the patient. I advised her to restart the 200mg of Celebrex BID until she is able to f/u w/ her physician. I will send a script of Tizanadine to pharmacy. Medical Desision Making - Diagnostic Testing Diagnostic test were ordered, analyzed, and reviewed by me: No - Risk of complications The pt has a mod risk of morbidity or mortality based on: Need for prescription drug management - Departure Departure Disposition: Home Clinical Impression: Chronic lumbar pain Condition: Good Critical Care Time: No Referrals: DAREN JAIN MD [Primary Care Provider] - Follow up/PCP as directed Instructions: Low Back Pain (DC) Prescriptions: Tizanidine HCl 4 mg [Zanaflex 4 MG] 4 mg PO TID PRN #15 tablet PRN Reason: Pain
[2022-07-30] MEDS ORDERED: TORAdol 30 mg Injection ONE (11:37)
== END 2022-07-30 12:09 | disposition home or self-care (01) ==
LOC: ED 10:35
DX: G89.29 Other chronic pain (principal); M54.50 Low back pain, unspecified; I11.0 Hypertensive heart disease with heart failure; I50.9 Heart failure, unspecified; Z79.01 Long term (current) use of anticoagulants; Z79.899 Other long term (current) drug therapy
CPT/HCPCS: 96372; 99283; J1885; A9270-GY

== ENCOUNTER 2022-08-01 21:19 | Observation (INO) | payer MEDICARE, OTHER ==
[2022-08-01] MEDS ORDERED: DUONEB 0.5-3 MG/3 ml Neb IH ONE ×2 (21:30→21:45)
[2022-08-01] MEDS ORDERED: solu-MEDROL 125 MG, Sterile H2O 10 ml 2 ML IV ONE ×2 (21:30)
[2022-08-01] MEDS ORDERED: Zithromax 500 MG/ 250 ML NaCl Premix 500 MG/250 ML IVPB IV STA (21:30)
--- NOTE | 2022-08-01 21:30 | ERPHSYRPT ---
- History of Present Illness Time Seen by Provider: 08/01/22 21:28 Source: patient Exam Limitations: no limitations Physician History: 87-year-old female presents emergency room with a 45-minute history of dyspnea on exertion. Patient denies any recent illness or sick contacts. She does have a history of COPD for which she uses her albuterol inhaler 3-4 times daily. She reports that she was walking to the bathroom and became short of breath. She denies fever, chills, nausea, vomiting, chest pain, cough, palpitations, unilateral leg swelling. Timing/Duration: hour(s) (1) Activities at Onset: activity Severity of Dyspnea-Max: severe Severity of Dyspnea-Current: severe Possible Cause: frequent episodes Modifying Factors: Improves With: albuterol inhaler, rest. Worsens With: activity, exertion Associated Symptoms: intermittent, edema, ankle swelling, No cough, No chest nico n/discomfort, No fever, No wheezing, No weakness, No calf pain, No heaviness, No heart racing, No productive cough Allergies/Adverse Reactions: hydrocodone bitartrate [From Vicodin] Allergy (Severe, Verified 08/01/22 21:32) Itching Home Medications: Celecoxib 100 mg [celeBREX 100 MG] 50 mg PO BID 12/30/12 [History] Esomeprazole Magnesium [Nexium] 20 mg PO DAILY 12/30/12 [History] Levothyroxine Sodium 150 Mcg [Synthroid 150 Mcg] 150 mcg PO DAILY 12/30/12 [History] Warfarin Sodium 5 mg [Jantoven] 6 mg PO DAILY 12/30/12 [History] Albuterol Sulfate Mdi [Proair Hfa MDI] 8.5 gm IH QID 06/03/18 [History] Budesonide/Formoterol Fumarate [Symbicort 160-4.5 Mcg Inhaler] 10.2 gm IH BID 06/03/18 [History] Furosemide 40 mg [Lasix 40 MG] 20 mg PO DAILY 06/03/18 [History] Pravastatin Sodium 20 mg PO HS 06/03/18 [History] Hx Tetanus, Diphtheria Vaccination/Date Given: No Hx Influenza Vaccination/Date Given: Yes Hx Pneumococcal Vaccination/Date Given: Yes Travel Risk - Vaccine Status Have you recieved a Covid-19 vaccination: Yes Cable Splicer: Moderna - Vaccination Dates Date of 2cond Vaccination (if applicable): 12/11/2020 - Review of Systems Constitutional: No Symptoms Eyes: No Symptoms Ears, Nose, & Throat: No Symptoms Respiratory: Dyspnea, Dyspnea on Exertion (ALICIA), No Cough, No Wheezing Cardiac: Edema, No Chest Pain, No Palpitations, No Orthopnea, No PND Abdominal/Gastrointestinal: No Symptoms Genitourinary Symptoms: No Symptoms Musculoskeletal: Back Pain (chronic) Skin: No Symptoms Neurological: No Symptoms - Past Medical History Pertinent Past Medical History: Yes Neurological History: No Pertinent History ENT History: Cataracts Cardiac History: Arrhythmia, Congestive Heart Failure, Hypertension Respiratory History: Asthma, CHF, COPD Endocrine Medical History: Hypothyroidism Musculoskeletal History: Arthritis, Fractures, Osteoporosis GI Medical History: GERD, Hernia History: No Pertinent History Psycho-Social History: No Pertinent History Female Reproductive Disorders: Fibroids, Other Other Medical History: BROKEN BACK IN PAST - Past Surgical History Past Surgical History: Yes Neuro Surgical History: No Pertinent History Cardiac: No Pertinent History Respiratory: No Pertinent History Gastrointestinal: Hernia Repair Genitourinary: No Pertinent History Musculoskeletal: Joint Replacement Female Surgical History: Hysterectomy Other Surgical History: Right knee replacement 2009. - Social History Smoking Status: Never smoker Exposure to second hand smoke: No Drug Use: none Patient Lives Alone: No - Nursing Vital Signs Nursing Vital Signs: Initial Vital Signs Temperature 98.4 F 08/01/22 21:20 Pulse Rate 83 08/01/22 21:20 Respiratory Rate 22 08/01/22 21:20 Blood Pressure 137/85 08/01/22 21:20 O2 Sat by Pulse Oximetry 95 08/01/22 21:20 Pain Scale Pain Intensity 5 - Physical Exam General Appearance: no apparent distress, obese Eye Exam: eyes nml inspection Ears, Nose, Throat Exam: hearing grossly normal, normal ENT inspection, No sinus pain/drainage, No nasal congestion Neck Exam: normal inspection, supple, full range of motion Respiratory Exam: airway intact, diminished breath sounds, No respiratory distress, No crackles/rales, No wheezing Cardiovascular/Chest Exam: irregular Abdominal/Gastrointestinal Exam: soft, normal bowel sounds, No tenderness Extremity Exam: no calf tenderness, swelling (non pitting), No tiffanie's sign Neurologic Exam: alert, oriented x 3, cooperative Skin Exam: normal color, warm, dry SpO2 Interpretation: normal SpO2: 95 O2 Delivery: Room Air - Course Nursing assessment & vital signs reviewed: Yes EKG Interpreted by Me: RATE (85), A-fib, NORMAL AXIS, NORMAL INTERVALS, Other (No contiguous ST changes) - Radiology Exams Chest X-ray Interpretation: Interpreted by me, Infiltrates, Pneumonia (b/l R>L) Ordered Tests: Active Orders 24 hr Category Date Time Status Metal Solderer STAT Care 08/01/22 21:32 Active EKG-ER Only STAT Care 08/01/22 21:30 Active Corado [Catheter-Thorndike Corado] STAT Care 08/01/22 22:27 Active IV Insertion STAT Care 08/01/22 21:30 Active Pulse Oximetry (ED) STAT Care 08/01/22 21:30 Active cath [Cath for Specimen-Straight] STAT Care 08/01/22 21:50 Active CHEST 1 VIEW (PORTABLE) Stat Exams 08/01/22 21:32 Completed CBC W DIFF Stat Lab 08/01/22 21:30 Completed CMP Stat Lab 08/01/22 21:30 Completed CULTURE,URINE Stat Lab 08/01/22 21:51 Received Lactic Acid Stat Lab 08/01/22 22:00 Completed MAGNESIUM Stat Lab 08/01/22 21:30 Completed NT PRO BNPII Stat Lab 08/01/22 21:30 Completed PROCALCITONIN Stat Lab 08/01/22 21:30 Completed TROPONIN Q4H Lab 08/01/22 21:30 Completed TROPONIN Q4H Lab 08/02/22 01:45 Ordered TROPONIN Q4H Lab 08/02/22 05:45 Ordered UA W/RFX UR CULTURE Stat Lab 08/01/22 21:50 Completed Respiratory Therapy Assessment DAILY RT 08/01/22 21:46 Active Transfer Order Routine Transfer 08/01/22 Ordered Medication Summary Generic Name Dose Route Start Last Admin Trade Name Freq PRN Reason Stop Dose Admin Ceftriaxone Sodium/Dextrose 1 g in 50 mls @ 100 mls/hr 08/02/22 10:00 08/01/22 22:50 Rocephin 1 Gm-D5w 50 Ml Bag IV 08/05/22 09:59 100 mls/hr Q24H10 BETO 100 mls/hr Administration Discontinued Medications Generic Name Dose Route Start Last Admin Trade Name Freq PRN Reason Stop Dose Admin Albuterol/Ipratropium 3 ml 06/05/23 21:30 08/01/22 21:47 Ipratropium/Albuterol Sulfate 3 Ml Ampul.Neb IH 08/01/22 21:31 3 ml STAT ONE Administration Albuterol/Ipratropium Confirm 08/01/22 21:45 Ipratropium/Albuterol Sulfate 3 Ml Ampul.Neb Administered 08/01/22 21:46 Dose 3 ml IH .STK-MED ONE Methylprednisolone Sodium 0 mg 08/01/22 21:30 08/01/22 21:40 Succinate 125 mg/ Sterile IV 08/01/22 21:31 125 mg Water 2 ml STAT ONE Administration Azithromycin 500 mg in 250 mls @ 250 mls/hr 08/01/22 21:30 08/01/22 21:41 Zithromax 500 Mg/ 250 Ml Nacl Premix IV 08/01/22 22:29 250 mls/hr STAT STA 250 mls/hr Administration Azithromycin Confirm 08/01/22 21:38 Zithromax 500 Mg/ 250 Ml Nacl Premix Administered 08/01/22 21:39 Dose 500 mg in 250 mls @ ud IV .STK-MED ONE Ketorolac Tromethamine 30 mg 08/01/22 22:30 08/01/22 22:49 Ketorolac Tromethamine 30 Mg/Ml Inj IV 08/01/22 22:31 30 mg STAT ONE Administration Ketorolac Tromethamine Confirm 08/01/22 22:49 Ketorolac Tromethamine 30 Mg/Ml Inj Administered 08/01/22 22:50 Dose 30 mg .ROUTE .STK-MED ONE Methylprednisolone Sodium Succinate Confirm 08/01/22 21:38 Methylprednis Sod Succ 125 Mg/2 Ml Vial Administered 08/01/22 21:39 Dose 125 mg .ROUTE .STK-MED ONE Sterile Water Confirm 08/01/22 21:38 Water For Injection,Sterile 10 Ml Vial Administered 08/01/22 21:39 Dose 10 ml IJ .STK-MED ONE Tizanidine HCl 4 mg 08/01/22 22:31 Tizanidine Hcl 4 Mg Tablet PO 08/01/22 22:32 ONCE ONE Lab/Rad Data: Laboratory Result Diagrams 08/01/22 21:30 08/01/22 21:30 Laboratory Results 08/01/22 08/01/22 08/01/22 Range/Units 22:00 21:50 21:45 WBC (4.0-10.5) x10^3/uL RBC (4.1-5.4) x10^6/uL Hgb (12.0-16.0) g/dL Hct (35-47) % MCV (78-100) fL MCH (26-32) pg MCHC (32-36) g/dL RDW (11.5-14.0) % Plt Count (150-450) x10^3/uL MPV (7.5-11.0) fL Gran % (36.0-66.0) % Immature Gran % (Auto) (0.00-0.4) % Nucleat RBC Rel Count (0.00-0.1) % Eos # (Auto) (0-0.5) x10^3/uL Immature Gran # (Auto) (0.00-0.03) x10^3u/L Absolute Lymphs (auto) (1.0-4.6) x10^3/uL Absolute Monos (auto) (0.0-1.3) x10^3/uL Absolute Nucleated RBC (0.00-0.01) x10^3u/L Lymphocytes % (24.0-44.0) % Monocytes % (0.0-12.0) % Eosinophils % (0.00-5.0) % Basophils % (0.0-0.4) % Absolute Granulocytes (1.4-6.9) x10^3/uL Basophils # (0-0.4) x10^3/uL Sodium (137-145) mmol/L Potassium (3.5-5.1) mmol/L Chloride (98-107) mmol/L Carbon Dioxide (22-30) mmol/L Anion Gap (5-15) MEQ/L BUN (7-17) mg/dL Creatinine (0.52-1.04) mg/dL Estimated GFR ML/MIN Glucose (74-106) mg/dL Lactic Acid 1.9 (0.4-2.0) Calcium (8.4-10.2) mg/dL Magnesium (1.6-2.3) mg/dL Total Bilirubin (0.2-1.3) mg/dL AST (14-36) U/L ALT (0-35) U/L Alkaline Phosphatase (38-126) U/L Troponin I (0.000-0.034) ng/mL NT-Pro-B Natriuret Pep (<300) pg/mL Serum Total Protein (6.3-8.2) g/dL Albumin (3.5-5.0) g/dL Procalcitonin (0.030-0.080) ng/mL Urine Color Yellow (Yellow) Urine Appearance Clear (Clear) Urine pH 5.0 (4.6-8.0) Ur Specific [place] 1.010 (1.005-1.030) Urine Protein Negative (Negative) Urine Glucose (UA) Negative (Negative) mg/dL Urine Ketones Negative (Negative) Urine Blood Trace (Negative) Urine Nitrite Negative (Negative) Urine Bilirubin Negative (Negative) Urine Urobilinogen 1.0 A (0.2) mg/dL Ur Leukocyte Esterase Negative (Negative) U Hyaline Cast (Auto) NONE SEEN (0-2) /LPF Urine Microscopic RBC 0-2 (0-5) /HPF Urine Microscopic WBC 0-2 (0-5) /HPF Ur Epithelial Cells None Seen (None Seen) /HPF Urine Bacteria None Seen (None Seen) /HPF Urine Culture Reflexed ORDERED SEPARATELY (NO) Influenza Type A Ag NEGATIVE (NEGATIVE) Influenza Type B Ag NEGATIVE (NEGATIVE) RSV (PCR) NEGATIVE (NEGATIVE) SARS-CoV-2 (PCR) NEGATIVE (NEGATIVE) 08/01/22 08/01/22 08/01/22 Range/Units 21:30 21:30 21:30 WBC (4.0-10.5) x10^3/uL RBC (4.1-5.4) x10^6/uL Hgb (12.0-16.0) g/dL Hct (35-47) % MCV (78-100) fL MCH (26-32) pg MCHC (32-36) g/dL RDW (11.5-14.0) % Plt Count (150-450) x10^3/uL MPV (7.5-11.0) fL Gran % (36.0-66.0) % Immature Gran % (Auto) (0.00-0.4) % Nucleat RBC Rel Count (0.00-0.1) % Eos # (Auto) (0-0.5) x10^3/uL Immature Gran # (Auto) (0.00-0.03) x10^3u/L Absolute Lymphs (auto) (1.0-4.6) x10^3/uL Absolute Monos (auto) (0.0-1.3) x10^3/uL Absolute Nucleated RBC (0.00-0.01) x10^3u/L Lymphocytes % (24.0-44.0) % Monocytes % (0.0-12.0) % Eosinophils % (0.00-5.0) % Basophils % (0.0-0.4) % Absolute Granulocytes (1.4-6.9) x10^3/uL Basophils # (0-0.4) x10^3/uL Sodium 139 (137-145) mmol/L Potassium 3.9 (3.5-5.1) mmol/L Chloride 102 (98-107) mmol/L Carbon Dioxide 24 (22-30) mmol/L Anion Gap 17.4 H (5-15) MEQ/L BUN 27 H (7-17) mg/dL Creatinine 0.74 (0.52-1.04) mg/dL Estimated GFR > 60.0 ML/MIN Glucose 122 H (74-106) mg/dL Lactic Acid (0.4-2.0) Calcium 9.2 (8.4-10.2) mg/dL Magnesium 2.0 (1.6-2.3) mg/dL Total Bilirubin 0.80 (0.2-1.3) mg/dL AST 32 (14-36) U/L ALT 12 (0-35) U/L Alkaline Phosphatase 71 (38-126) U/L Troponin I < 0.012 (0.000-0.034) ng/mL NT-Pro-B Natriuret Pep 330 (<300) pg/mL Serum Total Protein 8.3 H (6.3-8.2) g/dL Albumin 4.5 (3.5-5.0) g/dL Procalcitonin 0.045 (0.030-0.080) ng/mL Urine Color (Yellow) Urine Appearance (Clear) Urine pH (4.6-8.0) Ur Specific [place] (1.005-1.030) Urine Protein (Negative) Urine Glucose (UA) (Negative) mg/dL Urine Ketones (Negative) Urine Blood (Negative) Urine Nitrite (Negative) Urine Bilirubin (Negative) Urine Urobilinogen (0.2) mg/dL Ur Leukocyte Esterase (Negative) U Hyaline Cast (Auto) (0-2) /LPF Urine Microscopic RBC (0-5) /HPF Urine Microscopic WBC (0-5) /HPF Ur Epithelial Cells (None Seen) /HPF Urine Bacteria (None Seen) /HPF Urine Culture Reflexed (NO) Influenza Type A Ag (NEGATIVE) Influenza Type B Ag (NEGATIVE) RSV (PCR) (NEGATIVE) SARS-CoV-2 (PCR) (NEGATIVE) 08/01/22 Range/Units 21:30 WBC 6.9 (4.0-10.5) x10^3/uL RBC 4.44 (4.1-5.4) x10^6/uL Hgb 14.0 (12.0-16.0) g/dL Hct 44.4 (35-47) % MCV 100.0 (78-100) fL MCH 31.5 (26-32) pg MCHC 31.5 L (32-36) g/dL RDW 13.1 (11.5-14.0) % Plt Count 223 (150-450) x10^3/uL MPV 10.1 (7.5-11.0) fL Gran % 61.0 (36.0-66.0) % Immature Gran % (Auto) 0.7 H (0.00-0.4) % Nucleat RBC Rel Count 0.0 (0.00-0.1) % Eos # (Auto) 0.16 (0-0.5) x10^3/uL Immature Gran # (Auto) 0.05 H (0.00-0.03) x10^3u/L Absolute Lymphs (auto) 1.95 (1.0-4.6) x10^3/uL Absolute Monos (auto) 0.48 (0.0-1.3) x10^3/uL Absolute Nucleated RBC 0.00 (0.00-0.01) x10^3u/L Lymphocytes % 28.1 (24.0-44.0) % Monocytes % 6.9 (0.0-12.0) % Eosinophils % 2.3 (0.00-5.0) % Basophils % 1.0 (0.0-0.4) % Absolute Granulocytes 4.23 (1.4-6.9) x10^3/uL Basophils # 0.07 (0-0.4) x10^3/uL Sodium (137-145) mmol/L Potassium (3.5-5.1) mmol/L Chloride (98-107) mmol/L Carbon Dioxide (22-30) mmol/L Anion Gap (5-15) MEQ/L BUN (7-17) mg/dL Creatinine (0.52-1.04) mg/dL Estimated GFR ML/MIN Glucose (74-106) mg/dL Lactic Acid (0.4-2.0) Calcium (8.4-10.2) mg/dL Magnesium (1.6-2.3) mg/dL Total Bilirubin (0.2-1.3) mg/dL AST (14-36) U/L ALT (0-35) U/L Alkaline Phosphatase (38-126) U/L Troponin I (0.000-0.034) ng/mL NT-Pro-B Natriuret Pep (<300) pg/mL Serum Total Protein (6.3-8.2) g/dL Albumin (3.5-5.0) g/dL Procalcitonin (0.030-0.080) ng/mL Urine Color (Yellow) Urine Appearance (Clear) Urine pH (4.6-8.0) Ur Specific [place] (1.005-1.030) Urine Protein (Negative) Urine Glucose (UA) (Negative) mg/dL Urine Ketones (Negative) Urine Blood (Negative) Urine Nitrite (Negative) Urine Bilirubin (Negative) Urine Urobilinogen (0.2) mg/dL Ur Leukocyte Esterase (Negative) U Hyaline Cast (Auto) (0-2) /LPF Urine Microscopic RBC (0-5) /HPF Urine Microscopic WBC (0-5) /HPF Ur Epithelial Cells (None Seen) /HPF Urine Bacteria (None Seen) /HPF Urine Culture Reflexed (NO) Influenza Type A Ag (NEGATIVE) Influenza Type B Ag (NEGATIVE) RSV (PCR) (NEGATIVE) SARS-CoV-2 (PCR) (NEGATIVE) - Progress Progress: improved Air Movement: fair Progress Note: Reports improvement after steroids, nebs and antibiotics. Lab evaluation showed a normal white count, normal CMP and negative viral panel. Chest x-ray did show extensive bilateral pneumonia. Discussed admission with Dr. Lopez who excepted at 2229 for observation. I will continue Rocephin and azithromycin on admission. 08/01/22 22:56 Blood Culture(s) Obtained: No Antibiotics given: Yes Discussed with Dr.: Other (yuli) Will see patient in: hospital (observation) Counseled pt/family regarding: lab results, diagnosis, need for follow-up, rad results Medical Desision Making - Discussion of managment Care discussed with:: hospitalist Reviewed:: Test results Agreed on:: Treatment plan, place in obs Will see patient: in hospital - Diagnostic Testing Diagnostic test were ordered, analyzed, and reviewed by me: Yes Radiological Interpretation: Interpreted by me, Reviewed by me - Risk of complications The pt has a mod risk of morbidity or mortality based on: Need for prescription drug management The pt has a high risk of morbidity or mortality based on: Decision regarding hospitilization or escalation of hosp level of care - Departure Departure Disposition: Observation Clinical Impression: Bilateral pneumonia, COPD exacerbation, Chronic lumbar pain Condition: Stable Critical Care Time: No Referrals: DAREN JAIN MD [Primary Care Provider] - Follow up/PCP as directed Instructions: Chronic Obstructive Pulmonary Disease, Pneumonia, Adult (DC)
[2022-08-01] MEDS ORDERED: solu-MEDROL ONE (21:38)
[2022-08-01] MEDS ORDERED: Sterile H2O 10 ml IJ ONE (21:38)
[2022-08-01] MEDS ORDERED: Zithromax 500 MG/ 250 ML NaCl Premix 500 MG/250 ML IVPB IV ONE (21:38)
[2022-08-01 21:48] LABS: Absolute Neutrophil Ct (ANC) 4.23 x10^3/uL (1.4-6.9); Basophil (Absolute #) 0.07 x10^3/uL (0-0.4); Eosinophil % 2.3 % (0.00-5.0); Eosinophil (Absolute #) 0.16 x10^3/uL (0-0.5); Hematocrit 44.4 % (35-47); IMMATURE GRAN # 0.05 x10^3u/L (0.00-0.03); IMMATURE GRAN % 0.7 % (0.00-0.4); Lymphocyte (Absolute #) 1.95 x10^3/uL (1.0-4.6); Lymphocytes % 28.1 % (24.0-44.0); Mean Corpuscular Hemoglobin 31.5 pg (26-32); Mean Corpuscular Hgb Concent. 31.5 g/dL (32-36); Mean Platelet Volume 10.1 fL (7.5-11.0); Monocyte (Absolute #) 0.48 x10^3/uL (0.0-1.3); Monocytes % 6.9 % (0.0-12.0); Platelet Count 223 x10^3/uL (150-450); Red Blood Count 4.44 x10^6/uL (4.1-5.4); Red Cell Distribution Width 13.1 % (11.5-14.0); White Blood Count 6.9 x10^3/uL (4.0-10.5)
[2022-08-01 22:01] LABS: Appearance Clear (Clear); Bacteria None Seen /HPF (None Seen); Bilirubin Negative (Negative); Blood Trace (Negative); Epithelial Cells None Seen /HPF (None Seen); Glucose, Urine Negative (Negative); Hyaline Casts NONE SEEN /LPF (0-2); Ketones Negative (Negative); Leukocyte Esterase Negative (Negative); Nitrite Negative (Negative); Protein,Urine Dip Negative (Negative); RBC 0-2 /HPF (0-5); WBC 0-2 /HPF (0-5)
[2022-08-01 22:05] LABS: ADD URINE CULTURE? ORDERED SEPARATELY (NO)
[2022-08-01 22:08] LABS: ALBUMIN 4.5 g/dL (3.5-5.0); ALKALINE PHOSPHATASE 71 U/L (38-126); ANION GAP 17.4 MEQ/L (5-15); BLOOD UREA NITROGEN 27 mg/dL (7-17); CHLORIDE 102 mmol/L (98-107); Calcium 9.2 mg/dL (8.4-10.2); Carbon Dioxide 24 mmol/L (22-30); Creatinine 1 0.74 mg/dL (0.52-1.04); EST GLOMERULAR FILTRATION RATE > 60.0 ML/MIN; Glucose 122 mg/dL (74-106); NT PRO BNPII 330 pg/mL (<300); Potassium 3.9 mmol/L (3.5-5.1); SGOT/AST 32 U/L (14-36); SGPT/ALT 12 U/L (0-35); SODIUM 139 mmol/L (137-145); Total Protein 8.3 g/dL (6.3-8.2)
[2022-08-01 22:24] LABS: INFLUENZA A NEGATIVE (NEGATIVE); INFLUENZA B NEGATIVE (NEGATIVE); RESPIRATORY SYNCTIAL VIRUS NEGATIVE (NEGATIVE); SARS-CoV-2 Xpert Express NEGATIVE (NEGATIVE)
[2022-08-01] MEDS ORDERED: TORAdol 30 mg Injection IV ONE (22:30)
[2022-08-01] MEDS ORDERED: Zanaflex 4 MG PO ONE (22:31)
--- NOTE | 2022-08-01 22:36 | XRAY ---
CLINICAL HISTORY:Shortness of breath; COMPARISON:05/10/22; TECHNIQUES:Chest radiograph - portable frontal view; FINDINGS: The cardiac silhouette is enlarged. Few patchy infiltrates are seen in bilateral mid and lower zones. Both costophrenic angles appear unremarkable. Both hemidiaphragms appear unremarkable. Air lucencies in the retrocardiac zone could be from hiatal hernia. 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 IMPRESSION: Enlarged cardiac silhouette with patchy infiltrates in bilateral mid and lower zones. Air lucencies in the retrocardiac zone could be from hiatal hernia. No significant interval changes seen since the previous study dated 05/10/2022. Electronically Signed by: La Montoya MD. (08/01/2022 21:30:24 [employer])
[2022-08-01] MEDS ORDERED: TORAdol 30 mg Injection ONE (22:49)
[2022-08-01] MEDS ORDERED: DUONEB 0.5-3 MG/3 ml Neb IH PRN (23:22)
[2022-08-02] MEDS ORDERED: solu-MEDROL ONE ×3 (00:13→06:40)
[2022-08-02] MEDS ORDERED: Sterile H2O 10 ml IJ ONE ×2 (00:13→06:29)
[2022-08-02] MEDS: solu-MEDROL 60 MG, Sterile H2O 10 ml 2 ML IV SCH ×8 (00:25→18:18)
[2022-08-02 01:20] LABS: Absolute Neutrophil Ct (ANC) 9.93 x10^3/uL (1.4-6.9); BASOPHIL % 0.4 % (0.0-0.4); Basophil (Absolute #) 0.04 x10^3/uL (0-0.4); Eosinophil % 0.1 % (0.00-5.0); Eosinophil (Absolute #) 0.01 x10^3/uL (0-0.5); Hematocrit 41.8 % (35-47); Hemoglobin 13.5 g/dL (12.0-16.0); IMMATURE GRAN # 0.12 x10^3u/L (0.00-0.03); IMMATURE GRAN % 1.1 % (0.00-0.4); Lymphocyte (Absolute #) 0.41 x10^3/uL (1.0-4.6); Lymphocytes % 3.9 % (24.0-44.0); Mean Cell Volume 96.8 fL (78-100); Mean Corpuscular Hemoglobin 31.3 pg (26-32); Mean Corpuscular Hgb Concent. 32.3 g/dL (32-36); Mean Platelet Volume 9.9 fL (7.5-11.0); Monocyte (Absolute #) 0.08 x10^3/uL (0.0-1.3); Monocytes % 0.8 % (0.0-12.0); Neutrophil % 93.7 % (36.0-66.0); Platelet Count 213 x10^3/uL (150-450); Red Blood Count 4.32 x10^6/uL (4.1-5.4); Red Cell Distribution Width 12.9 % (11.5-14.0); White Blood Count 10.6 x10^3/uL (4.0-10.5)
[2022-08-02 01:31] LABS: ANION GAP 13.3 MEQ/L (5-15); BLOOD UREA NITROGEN 24 mg/dL (7-17); CHLORIDE 103 mmol/L (98-107); Carbon Dioxide 27 mmol/L (22-30); Creatinine 1 0.73 mg/dL (0.52-1.04); EST GLOMERULAR FILTRATION RATE > 60.0 ML/MIN; Glucose 139 mg/dL (74-106); Potassium 3.9 mmol/L (3.5-5.1); SODIUM 139 mmol/L (137-145)
--- NOTE | 2022-08-02 01:46 | PCM.HP ---
History of Present Illness - Chief Complaint Chief Complaint: PNA COPD Exac Date: 08/01/22 History of Present Illness: is a 87 year old female who presented to the hospital with dyspnea on exertion for approximately 45 minutes associated with a nonproductive cough. The patient denied chest pain, fevers, or chills. The patient uses nocturnal oxygen at 2LPM and has not had any recent change to her flow rate. She has also been compliant with her bronchodilator use. Denies hemoptysis. At the time of my evaluation, her dyspnea has improved. However, she has been experiencing acute on chronic back pain as well as lower extremity muscle spasms. The entirety of this encounter was performed via telemedicine. The patient consented to this telemedicine encounter. - Review of Systems Constitutional: No Symptoms Eyes: No Symptoms Ears, Nose, & Throat: No Symptoms Respiratory: Cough, Short Of Breath Cardiac: No Symptoms Abdominal/Gastrointestinal: No Symptoms Genitourinary Symptoms: No Symptoms Musculoskeletal: Myalgias Skin: No Symptoms Neurological: No Symptoms Psychological: No Symptoms Endocrine: No Symptoms Hematologic/Lymphatic: No Symptoms Immunological/Allergic: No Symptoms All Other Systems: Reviewed and Negative Medications & Allergies Home Medications: Home Medication List Celecoxib 100 mg [celeBREX 100 MG] 50 mg PO BID 12/30/12 [History Confirmed 08/01/22] Esomeprazole Magnesium [Nexium] 20 mg PO DAILY 12/30/12 [History Confirmed 08/01/22] Levothyroxine Sodium 150 Mcg [Synthroid 150 Mcg] 150 mcg PO DAILY 12/30/12 [History Confirmed 08/01/22] Warfarin Sodium 5 mg [Jantoven] 6 mg PO DAILY 12/30/12 [History Confirmed 08/01/22] Albuterol Sulfate Mdi [Proair Hfa MDI] 8.5 gm IH QID 06/03/18 [History Confirmed 08/01/22] Budesonide/Formoterol Fumarate [Symbicort 160-4.5 Mcg Inhaler] 10.2 gm IH BID 06/03/18 [History Confirmed 08/01/22] Furosemide 40 mg [Lasix 40 MG] 20 mg PO DAILY 06/03/18 [History Confirmed 08/01/22] Pravastatin Sodium 20 mg PO HS 06/03/18 [History Confirmed 08/01/22] Tizanidine HCl 4 mg [Zanaflex 4 MG] 4 mg PO TID PRN #15 tablet 07/30/22 [Rx Confirmed 08/01/22] Allergies/Adverse Reactions: Allergies Allergy/AdvReac Type Severity Reaction Status Date / Time hydrocodone bitartrate Allergy Severe Itching Verified 08/01/22 21:32 [From Vicodin] - Past Medical History Past Medical History: Yes Neurological History: No Pertinent History ENT History: Cataracts Cardiac History: Congestive Heart Failure Respiratory History: CHF, COPD Endocrine Medical History: Hyperthyroidism Musculoskelatal History: Arthritis, Fractures GI Medical History: Gallbladder Disease, Hernia History: No Pertinent History Pyscho-Social History: No Pertinent History Reproductive Disorders: Fibroids Comment: BROKEN BACK IN PAST - Female History Are you now?: No - Past Surgical History Past Surgical History: Yes Neuro Surgical History: No Pertinent History Cardiac History: No Pertinent History Respiratory Surgery: No Pertinent History GI Surgical History: Appendectomy, Cholecystectomy, Hernia Repair Genitourinary Surgical Hx: No Pertinent History Musculskeletal Surgical Hx: Joint Replacement Female Surgical History: Hysterectomy Other Surgical History: Right knee replacement 2009. - Social History Smoking Status: Never smoker Exposure to second hand smoke: No Alcohol: None Drug Use: none - Physical Exam Vital Signs: Vital Signs - 24 hr Temp Pulse Resp BP Pulse Ox 08/01/22 23:56 91 H 20 94 L 08/01/22 23:28 98.0 F 92 H 20 165/71 93 L 08/01/22 22:58 95 08/01/22 22:00 90 20 154/83 96 08/01/22 21:48 83 22 95 08/01/22 21:39 96 08/01/22 21:22 22 97 08/01/22 21:20 98.4 F 83 22 137/85 95 General Appearance: mild distress Neurologic Exam: alert, oriented x 3, cooperative, principal data architect II-XII nml as tested, normal mood/affect, nml cerebellar function Eye Exam: PERRL/EOMI, eyes nml inspection Ears, Nose, Throat Exam: normal ENT inspection Neck Exam: normal inspection, non-tender, supple, full range of motion Respiratory Exam: diminished breath sounds Cardiovascular Exam: regular rate/rhythm, normal heart sounds Gastrointestinal/Abdomen Exam: soft, normal bowel sounds Extremity Exam: normal range of motion, pedal edema (1+ bilateral symmetric pedal edema) Skin Exam: normal color Results - Labs Lab/Micro Results: Lab Results-Last 24 Hours 08/01/22 08/01/22 08/01/22 Range/Units 21:30 21:30 21:30 WBC 6.9 (4.0-10.5) x10^3/uL RBC 4.44 (4.1-5.4) x10^6/uL Hgb 14.0 (12.0-16.0) g/dL Hct 44.4 (35-47) % MCV 100.0 (78-100) fL MCH 31.5 (26-32) pg MCHC 31.5 L (32-36) g/dL RDW 13.1 (11.5-14.0) % Plt Count 223 (150-450) x10^3/uL MPV 10.1 (7.5-11.0) fL Gran % 61.0 (36.0-66.0) % Immature Gran % (Auto) 0.7 H (0.00-0.4) % Nucleat RBC Rel Count 0.0 (0.00-0.1) % Eos # (Auto) 0.16 (0-0.5) x10^3/uL Immature Gran # (Auto) 0.05 H (0.00-0.03) x10^3u/L Absolute Lymphs (auto) 1.95 (1.0-4.6) x10^3/uL Absolute Monos (auto) 0.48 (0.0-1.3) x10^3/uL Absolute Nucleated RBC 0.00 (0.00-0.01) x10^3u/L Lymphocytes % 28.1 (24.0-44.0) % Monocytes % 6.9 (0.0-12.0) % Eosinophils % 2.3 (0.00-5.0) % Basophils % 1.0 (0.0-0.4) % Absolute Granulocytes 4.23 (1.4-6.9) x10^3/uL Basophils # 0.07 (0-0.4) x10^3/uL Sodium 139 (137-145) mmol/L Potassium 3.9 (3.5-5.1) mmol/L Chloride 102 (98-107) mmol/L Carbon Dioxide 24 (22-30) mmol/L Anion Gap 17.4 H (5-15) MEQ/L BUN 27 H (7-17) mg/dL Creatinine 0.74 (0.52-1.04) mg/dL Estimated GFR > 60.0 ML/MIN Glucose 122 H (74-106) mg/dL Lactic Acid (0.4-2.0) Calcium 9.2 (8.4-10.2) mg/dL Magnesium 2.0 (1.6-2.3) mg/dL Total Bilirubin 0.80 (0.2-1.3) mg/dL AST 32 (14-36) U/L ALT 12 (0-35) U/L Alkaline Phosphatase 71 (38-126) U/L Troponin I < 0.012 (0.000-0.034) ng/mL NT-Pro-B Natriuret Pep 330 (<300) pg/mL Serum Total Protein 8.3 H (6.3-8.2) g/dL Albumin 4.5 (3.5-5.0) g/dL Procalcitonin (0.030-0.080) ng/mL Urine Color (Yellow) Urine Appearance (Clear) Urine pH (4.6-8.0) Ur Specific [place] (1.005-1.030) Urine Protein (Negative) Urine Glucose (UA) (Negative) mg/dL Urine Ketones (Negative) Urine Blood (Negative) Urine Nitrite (Negative) Urine Bilirubin (Negative) Urine Urobilinogen (0.2) mg/dL Ur Leukocyte Esterase (Negative) U Hyaline Cast (Auto) (0-2) /LPF Urine Microscopic RBC (0-5) /HPF Urine Microscopic WBC (0-5) /HPF Ur Epithelial Cells (None Seen) /HPF Urine Bacteria (None Seen) /HPF Urine Culture Reflexed (NO) Influenza Type A Ag (NEGATIVE) Influenza Type B Ag (NEGATIVE) RSV (PCR) (NEGATIVE) SARS-CoV-2 (PCR) (NEGATIVE) 08/01/22 08/01/22 08/01/22 Range/Units 21:30 21:45 21:50 WBC (4.0-10.5) x10^3/uL RBC (4.1-5.4) x10^6/uL Hgb (12.0-16.0) g/dL Hct (35-47) % MCV (78-100) fL MCH (26-32) pg MCHC (32-36) g/dL RDW (11.5-14.0) % Plt Count (150-450) x10^3/uL MPV (7.5-11.0) fL Gran % (36.0-66.0) % Immature Gran % (Auto) (0.00-0.4) % Nucleat RBC Rel Count (0.00-0.1) % Eos # (Auto) (0-0.5) x10^3/uL Immature Gran # (Auto) (0.00-0.03) x10^3u/L Absolute Lymphs (auto) (1.0-4.6) x10^3/uL Absolute Monos (auto) (0.0-1.3) x10^3/uL Absolute Nucleated RBC (0.00-0.01) x10^3u/L Lymphocytes % (24.0-44.0) % Monocytes % (0.0-12.0) % Eosinophils % (0.00-5.0) % Basophils % (0.0-0.4) % Absolute Granulocytes (1.4-6.9) x10^3/uL Basophils # (0-0.4) x10^3/uL Sodium (137-145) mmol/L Potassium (3.5-5.1) mmol/L Chloride (98-107) mmol/L Carbon Dioxide (22-30) mmol/L Anion Gap (5-15) MEQ/L BUN (7-17) mg/dL Creatinine (0.52-1.04) mg/dL Estimated GFR ML/MIN Glucose (74-106) mg/dL Lactic Acid (0.4-2.0) Calcium (8.4-10.2) mg/dL Magnesium (1.6-2.3) mg/dL Total Bilirubin (0.2-1.3) mg/dL AST (14-36) U/L ALT (0-35) U/L Alkaline Phosphatase (38-126) U/L Troponin I (0.000-0.034) ng/mL NT-Pro-B Natriuret Pep (<300) pg/mL Serum Total Protein (6.3-8.2) g/dL Albumin (3.5-5.0) g/dL Procalcitonin 0.045 (0.030-0.080) ng/mL Urine Color Yellow (Yellow) Urine Appearance Clear (Clear) Urine pH 5.0 (4.6-8.0) Ur Specific [place] 1.010 (1.005-1.030) Urine Protein Negative (Negative) Urine Glucose (UA) Negative (Negative) mg/dL Urine Ketones Negative (Negative) Urine Blood Trace (Negative) Urine Nitrite Negative (Negative) Urine Bilirubin Negative (Negative) Urine Urobilinogen 1.0 A (0.2) mg/dL Ur Leukocyte Esterase Negative (Negative) U Hyaline Cast (Auto) NONE SEEN (0-2) /LPF Urine Microscopic RBC 0-2 (0-5) /HPF Urine Microscopic WBC 0-2 (0-5) /HPF Ur Epithelial Cells None Seen (None Seen) /HPF Urine Bacteria None Seen (None Seen) /HPF Urine Culture Reflexed ORDERED SEPARATELY (NO) Influenza Type A Ag NEGATIVE (NEGATIVE) Influenza Type B Ag NEGATIVE (NEGATIVE) RSV (PCR) NEGATIVE (NEGATIVE) SARS-CoV-2 (PCR) NEGATIVE (NEGATIVE) 08/01/22 08/02/22 08/02/22 Range/Units 22:00 01:15 01:15 WBC 10.6 H (4.0-10.5) x10^3/uL RBC 4.32 (4.1-5.4) x10^6/uL Hgb 13.5 (12.0-16.0) g/dL Hct 41.8 (35-47) % MCV 96.8 (78-100) fL MCH 31.3 (26-32) pg MCHC 32.3 (32-36) g/dL RDW 12.9 (11.5-14.0) % Plt Count 213 (150-450) x10^3/uL MPV 9.9 (7.5-11.0) fL Gran % 93.7 H (36.0-66.0) % Immature Gran % (Auto) 1.1 H (0.00-0.4) % Nucleat RBC Rel Count 0.0 (0.00-0.1) % Eos # (Auto) 0.01 (0-0.5) x10^3/uL Immature Gran # (Auto) 0.12 H (0.00-0.03) x10^3u/L Absolute Lymphs (auto) 0.41 L (1.0-4.6) x10^3/uL Absolute Monos (auto) 0.08 (0.0-1.3) x10^3/uL Absolute Nucleated RBC 0.00 (0.00-0.01) x10^3u/L Lymphocytes % 3.9 L (24.0-44.0) % Monocytes % 0.8 (0.0-12.0) % Eosinophils % 0.1 (0.00-5.0) % Basophils % 0.4 (0.0-0.4) % Absolute Granulocytes 9.93 H (1.4-6.9) x10^3/uL Basophils # 0.04 (0-0.4) x10^3/uL Sodium 139 (137-145) mmol/L Potassium 3.9 (3.5-5.1) mmol/L Chloride 103 (98-107) mmol/L Carbon Dioxide 27 (22-30) mmol/L Anion Gap 13.3 (5-15) MEQ/L BUN 24 H (7-17) mg/dL Creatinine 0.73 (0.52-1.04) mg/dL Estimated GFR > 60.0 ML/MIN Glucose 139 H (74-106) mg/dL Lactic Acid 1.9 (0.4-2.0) Calcium 9.0 (8.4-10.2) mg/dL Magnesium (1.6-2.3) mg/dL Total Bilirubin (0.2-1.3) mg/dL AST (14-36) U/L ALT (0-35) U/L Alkaline Phosphatase (38-126) U/L Troponin I (0.000-0.034) ng/mL NT-Pro-B Natriuret Pep (<300) pg/mL Serum Total Protein (6.3-8.2) g/dL Albumin (3.5-5.0) g/dL Procalcitonin (0.030-0.080) ng/mL Urine Color (Yellow) Urine Appearance (Clear) Urine pH (4.6-8.0) Ur Specific [place] (1.005-1.030) Urine Protein (Negative) Urine Glucose (UA) (Negative) mg/dL Urine Ketones (Negative) Urine Blood (Negative) Urine Nitrite (Negative) Urine Bilirubin (Negative) Urine Urobilinogen (0.2) mg/dL Ur Leukocyte Esterase (Negative) U Hyaline Cast (Auto) (0-2) /LPF Urine Microscopic RBC (0-5) /HPF Urine Microscopic WBC (0-5) /HPF Ur Epithelial Cells (None Seen) /HPF Urine Bacteria (None Seen) /HPF Urine Culture Reflexed (NO) Influenza Type A Ag (NEGATIVE) Influenza Type B Ag (NEGATIVE) RSV (PCR) (NEGATIVE) SARS-CoV-2 (PCR) (NEGATIVE) - Radiology Impressions Radiology Exams & Impressions: Radiology Procedures Category Date Time Status CHEST 1 VIEW (PORTABLE) Stat Exams 08/01/22 21:32 Completed - Other Procedures and Tests Respiratory Therapy 08/01/22 21:46 Respiratory Therapy Assessment DAILY 08/01/22 23:28 Oxygen Nasal Cannula 2 lpm 08/02/22 01:34 Respiratory Therapy Consult ROUTINE Assessment/Plan (1) Bilateral pneumonia Current Visit: Yes Status: Acute Assessment & Plan: CXR demonstrates bilateral pneumonia. IV antibiotics. Monitor clinical response Code(s): J18.9 - PNEUMONIA, UNSPECIFIED ORGANISM (2) Cough Current Visit: Yes Status: Acute Assessment & Plan: Cough suppressant. Treat underlying pneumonia Code(s): R05.9 - COUGH, UNSPECIFIED (3) COPD exacerbation Current Visit: Yes Status: Acute Assessment & Plan: IV steroids, nebulizers. Uses nocturnal O2 2LPM. Monitor O2 requirement and clinical exam. Code(s): J44.1 - CHRONIC OBSTRUCTIVE PULMONARY DISEASE W (ACUTE) EXACERBATION (4) Chronic lumbar pain Current Visit: Yes Status: Acute Assessment & Plan: Celebrex recently decreased. Has been on tizanidine for spasms. Will need to reassess with Dr. Rasmussen as outpatient. Toradol prn for breakthrough pain. Code(s): M54.50 - LOW BACK PAIN, UNSPECIFIED; G89.29 - OTHER CHRONIC PAIN Telemedicine Encounter - Telemedicine Encounter Telemedicine Encounter: The entirety of this encounter was performed via Telemedicine"
[2022-08-02 03:04] LABS: INR 2.3 (0.8-3.0); PROTIME 23.6 SECONDS (9.4-12.5)
[2022-08-02 03:07] LABS: Slide Review 1 YES
[2022-08-02] MEDS: TORAdol 30 mg Injection IV PRN ×3 (06:33→21:39)
[2022-08-02] MEDS: Advair Hfa 230/21 Mcg COMMON CANISTER IH SCH ×2 (07:33→19:36)
[2022-08-02] MEDS: SYNTHROID 150 MCG PO SCH (08:08)
[2022-08-02] MEDS ORDERED: ROCEPHIN 1 Gm-D5w 50 ml Bag** 1 G/50 ML IVPB IV SCH ×2 (10:00→22:00)
[2022-08-02] MEDS ORDERED: ENOXAPARIN SODIUM SQ SCH (10:00)
[2022-08-02] MEDS ORDERED: PROTONIX 40 MG IV IV SCH (10:00)
[2022-08-02] MEDS: Zanaflex 4 MG PO PRN ×3 (10:10→22:00)
[2022-08-02] MEDS: celeBREX 100 MG PO SCH ×2 (10:10→22:00)
[2022-08-02] MEDS: LASIX 20 MG PO SCH (10:10)
[2022-08-02] MEDS: Protonix 20MG Tablet PO SCH (10:19)
[2022-08-02] MEDS ORDERED: TYLENOL 325 MG PO PRN (14:17)
--- NOTE | 2022-08-02 15:11 | PCM.NOTE ---
Date and Time: 08/02/22 1504 Dyspnea and fatigue improved. Overall not at baseline yet. The entirety of this encounter was performed via telemedicine. The patient consented to this telemedicine encounter. - Review of Systems Constitutional: Weakness Eyes: No Symptoms Ears, Nose, & Throat: No Symptoms Respiratory: Cough, Short Of Breath Cardiac: No Symptoms Abdominal/Gastrointestinal: No Symptoms Genitourinary Symptoms: No Symptoms Musculoskeletal: No Symptoms, Joint Redness Neurological: No Symptoms Psychological: No Symptoms Endocrine: No Symptoms Hematologic/Lymphatic: No Symptoms Immunological/Allergic: No Symptoms All Other Systems: Reviewed and Negative Objective Exam Neurologic Exam: alert, oriented x 3, cooperative, baller tender II-XII nml as tested, normal mood/affect, nml cerebellar function Skin Exam: normal color Eye Exam: PERRL, EOMI, eyes nml inspection Neck Exam: normal inspection, non-tender, supple, full range of motion Respiratory Exam: normal breath sounds Cardiovascular Exam: regular rate/rhythm, normal heart sounds Gastrointestinal/Abdomen Exam: soft, normal bowel sounds Extremity Exam: normal inspection, normal range of motion OBJECTIVE DATA Vital Signs: Vital Signs - 24 hr Temp Pulse Resp BP Pulse Ox 08/02/22 12:00 98.2 F 87 16 119/57 95 08/02/22 07:34 85 16 95 08/02/22 06:58 98.6 F 84 18 140/67 91 L 08/02/22 04:00 98.1 F 88 18 122/66 93 L 08/01/22 23:56 91 H 20 94 L 08/01/22 23:28 98.0 F 92 H 20 165/71 93 L 08/01/22 22:58 95 08/01/22 22:00 90 20 154/83 96 08/01/22 21:48 83 22 95 08/01/22 21:39 96 08/01/22 21:22 22 97 08/01/22 21:20 98.4 F 83 22 137/85 95 Pain Assessment - Last Documented Pain Intensity 8 Pain Scale Used 0-10 Pain Scale Intake and Output: Intake & Output 07/31/22 08/01/22 08/02/22 08/03/22 11:59 11:59 11:59 11:59 Intake Total 953 Output Total 850 Balance 103 Weight 113.1 kg Lab Results: Lab Results-Last 24 Hours 08/01/22 08/01/2223 Range/Units 21:30 21:30 21:30 WBC 6.9 (4.0-10.5) x10^3/uL RBC 4.44 (4.1-5.4) x10^6/uL Hgb 14.0 (12.0-16.0) g/dL Hct 44.4 (35-47) % MCV 100.0 (78-100) fL MCH 31.5 (26-32) pg MCHC 31.5 L (32-36) g/dL RDW 13.1 (11.5-14.0) % Plt Count 223 (150-450) x10^3/uL MPV 10.1 (7.5-11.0) fL Gran % 61.0 (36.0-66.0) % Immature Gran % (Auto) 0.7 H (0.00-0.4) % Nucleat RBC Rel Count 0.0 (0.00-0.1) % Eos # (Auto) 0.16 (0-0.5) x10^3/uL Immature Gran # (Auto) 0.05 H (0.00-0.03) x10^3u/L Absolute Lymphs (auto) 1.95 (1.0-4.6) x10^3/uL Absolute Monos (auto) 0.48 (0.0-1.3) x10^3/uL Absolute Nucleated RBC 0.00 (0.00-0.01) x10^3u/L Lymphocytes % 28.1 (24.0-44.0) % Monocytes % 6.9 (0.0-12.0) % Eosinophils % 2.3 (0.00-5.0) % Basophils % 1.0 (0.0-0.4) % Absolute Granulocytes 4.23 (1.4-6.9) x10^3/uL Basophils # 0.07 (0-0.4) x10^3/uL PT (9.4-12.5) SECONDS INR (0.8-3.0) Sodium 139 (137-145) mmol/L Potassium 3.9 (3.5-5.1) mmol/L Chloride 102 (98-107) mmol/L Carbon Dioxide 24 (22-30) mmol/L Anion Gap 17.4 H (5-15) MEQ/L BUN 27 H (7-17) mg/dL Creatinine 0.74 (0.52-1.04) mg/dL Estimated GFR > 60.0 ML/MIN Glucose 122 H (74-106) mg/dL Lactic Acid (0.4-2.0) Calcium 9.2 (8.4-10.2) mg/dL Magnesium 2.0 (1.6-2.3) mg/dL Total Bilirubin 0.80 (0.2-1.3) mg/dL AST 32 (14-36) U/L ALT 12 (0-35) U/L Alkaline Phosphatase 71 (38-126) U/L Troponin I < 0.012 (0.000-0.034) ng/mL NT-Pro-B Natriuret Pep 330 (<300) pg/mL Serum Total Protein 8.3 H (6.3-8.2) g/dL Albumin 4.5 (3.5-5.0) g/dL Procalcitonin (0.030-0.080) ng/mL Urine Color (Yellow) Urine Appearance (Clear) Urine pH (4.6-8.0) Ur Specific [place] (1.005-1.030) Urine Protein (Negative) Urine Glucose (UA) (Negative) mg/dL Urine Ketones (Negative) Urine Blood (Negative) Urine Nitrite (Negative) Urine Bilirubin (Negative) Urine Urobilinogen (0.2) mg/dL Ur Leukocyte Esterase (Negative) U Hyaline Cast (Auto) (0-2) /LPF Urine Microscopic RBC (0-5) /HPF Urine Microscopic WBC (0-5) /HPF Ur Epithelial Cells (None Seen) /HPF Urine Bacteria (None Seen) /HPF Urine Culture Reflexed (NO) Influenza Type A Ag (NEGATIVE) Influenza Type B Ag (NEGATIVE) RSV (PCR) (NEGATIVE) SARS-CoV-2 (PCR) (NEGATIVE) Slides for Path Review 08/01/22 08/01/22 08/01/22 Range/Units 21:30 21:45 21:50 WBC (4.0-10.5) x10^3/uL RBC (4.1-5.4) x10^6/uL Hgb (12.0-16.0) g/dL Hct (35-47) % MCV (78-100) fL MCH (26-32) pg MCHC (32-36) g/dL RDW (11.5-14.0) % Plt Count (150-450) x10^3/uL MPV (7.5-11.0) fL Gran % (36.0-66.0) % Immature Gran % (Auto) (0.00-0.4) % Nucleat RBC Rel Count (0.00-0.1) % Eos # (Auto) (0-0.5) x10^3/uL Immature Gran # (Auto) (0.00-0.03) x10^3u/L Absolute Lymphs (auto) (1.0-4.6) x10^3/uL Absolute Monos (auto) (0.0-1.3) x10^3/uL Absolute Nucleated RBC (0.00-0.01) x10^3u/L Lymphocytes % (24.0-44.0) % Monocytes % (0.0-12.0) % Eosinophils % (0.00-5.0) % Basophils % (0.0-0.4) % Absolute Granulocytes (1.4-6.9) x10^3/uL Basophils # (0-0.4) x10^3/uL PT (9.4-12.5) SECONDS INR (0.8-3.0) Sodium (137-145) mmol/L Potassium (3.5-5.1) mmol/L Chloride (98-107) mmol/L Carbon Dioxide (22-30) mmol/L Anion Gap (5-15) MEQ/L BUN (7-17) mg/dL Creatinine (0.52-1.04) mg/dL Estimated GFR ML/MIN Glucose (74-106) mg/dL Lactic Acid (0.4-2.0) Calcium (8.4-10.2) mg/dL Magnesium (1.6-2.3) mg/dL Total Bilirubin (0.2-1.3) mg/dL AST (14-36) U/L ALT (0-35) U/L Alkaline Phosphatase (38-126) U/L Troponin I (0.000-0.034) ng/mL NT-Pro-B Natriuret Pep (<300) pg/mL Serum Total Protein (6.3-8.2) g/dL Albumin (3.5-5.0) g/dL Procalcitonin 0.045 (0.030-0.080) ng/mL Urine Color Yellow (Yellow) Urine Appearance Clear (Clear) Urine pH 5.0 (4.6-8.0) Ur Specific [place] 1.010 (1.005-1.030) Urine Protein Negative (Negative) Urine Glucose (UA) Negative (Negative) mg/dL Urine Ketones Negative (Negative) Urine Blood Trace (Negative) Urine Nitrite Negative (Negative) Urine Bilirubin Negative (Negative) Urine Urobilinogen 1.0 A (0.2) mg/dL Ur Leukocyte Esterase Negative (Negative) U Hyaline Cast (Auto) NONE SEEN (0-2) /LPF Urine Microscopic RBC 0-2 (0-5) /HPF Urine Microscopic WBC 0-2 (0-5) /HPF Ur Epithelial Cells None Seen (None Seen) /HPF Urine Bacteria None Seen (None Seen) /HPF Urine Culture Reflexed ORDERED SEPARATELY (NO) Influenza Type A Ag NEGATIVE (NEGATIVE) Influenza Type B Ag NEGATIVE (NEGATIVE) RSV (PCR) NEGATIVE (NEGATIVE) SARS-CoV-2 (PCR) NEGATIVE (NEGATIVE) Slides for Path Review 08/01/22 08/02/22 08/02/22 Range/Units 22:00 01:15 01:15 WBC 10.6 H (4.0-10.5) x10^3/uL RBC 4.32 (4.1-5.4) x10^6/uL Hgb 13.5 (12.0-16.0) g/dL Hct 41.8 (35-47) % MCV 96.8 (78-100) fL MCH 31.3 (26-32) pg MCHC 32.3 (32-36) g/dL RDW 12.9 (11.5-14.0) % Plt Count 213 (150-450) x10^3/uL MPV 9.9 (7.5-11.0) fL Gran % 93.7 H (36.0-66.0) % Immature Gran % (Auto) 1.1 H (0.00-0.4) % Nucleat RBC Rel Count 0.0 (0.00-0.1) % Eos # (Auto) 0.01 (0-0.5) x10^3/uL Immature Gran # (Auto) 0.12 H (0.00-0.03) x10^3u/L Absolute Lymphs (auto) 0.41 L (1.0-4.6) x10^3/uL Absolute Monos (auto) 0.08 (0.0-1.3) x10^3/uL Absolute Nucleated RBC 0.00 (0.00-0.01) x10^3u/L Lymphocytes % 3.9 L (24.0-44.0) % Monocytes % 0.8 (0.0-12.0) % Eosinophils % 0.1 (0.00-5.0) % Basophils % 0.4 (0.0-0.4) % Absolute Granulocytes 9.93 H (1.4-6.9) x10^3/uL Basophils # 0.04 (0-0.4) x10^3/uL PT (9.4-12.5) SECONDS INR (0.8-3.0) Sodium (137-145) mmol/L Potassium (3.5-5.1) mmol/L Chloride (98-107) mmol/L Carbon Dioxide (22-30) mmol/L Anion Gap (5-15) MEQ/L BUN (7-17) mg/dL Creatinine (0.52-1.04) mg/dL Estimated GFR ML/MIN Glucose (74-106) mg/dL Lactic Acid 1.9 (0.4-2.0) Calcium (8.4-10.2) mg/dL Magnesium (1.6-2.3) mg/dL Total Bilirubin (0.2-1.3) mg/dL AST (14-36) U/L ALT (0-35) U/L Alkaline Phosphatase (38-126) U/L Troponin I < 0.012 (0.000-0.034) ng/mL NT-Pro-B Natriuret Pep (<300) pg/mL Serum Total Protein (6.3-8.2) g/dL Albumin (3.5-5.0) g/dL Procalcitonin (0.030-0.080) ng/mL Urine Color (Yellow) Urine Appearance (Clear) Urine pH (4.6-8.0) Ur Specific [place] (1.005-1.030) Urine Protein (Negative) Urine Glucose (UA) (Negative) mg/dL Urine Ketones (Negative) Urine Blood (Negative) Urine Nitrite (Negative) Urine Bilirubin (Negative) Urine Urobilinogen (0.2) mg/dL Ur Leukocyte Esterase (Negative) U Hyaline Cast (Auto) (0-2) /LPF Urine Microscopic RBC (0-5) /HPF Urine Microscopic WBC (0-5) /HPF Ur Epithelial Cells (None Seen) /HPF Urine Bacteria (None Seen) /HPF Urine Culture Reflexed (NO) Influenza Type A Ag (NEGATIVE) Influenza Type B Ag (NEGATIVE) RSV (PCR) (NEGATIVE) SARS-CoV-2 (PCR) (NEGATIVE) Slides for Path Review YES 08/02/22 08/02/22 08/02/22 Range/Units 01:15 01:15 04:50 WBC (4.0-10.5) x10^3/uL RBC (4.1-5.4) x10^6/uL Hgb (12.0-16.0) g/dL Hct (35-47) % MCV (78-100) fL MCH (26-32) pg MCHC (32-36) g/dL RDW (11.5-14.0) % Plt Count (150-450) x10^3/uL MPV (7.5-11.0) fL Gran % (36.0-66.0) % Immature Gran % (Auto) (0.00-0.4) % Nucleat RBC Rel Count (0.00-0.1) % Eos # (Auto) (0-0.5) x10^3/uL Immature Gran # (Auto) (0.00-0.03) x10^3u/L Absolute Lymphs (auto) (1.0-4.6) x10^3/uL Absolute Monos (auto) (0.0-1.3) x10^3/uL Absolute Nucleated RBC (0.00-0.01) x10^3u/L Lymphocytes % (24.0-44.0) % Monocytes % (0.0-12.0) % Eosinophils % (0.00-5.0) % Basophils % (0.0-0.4) % Absolute Granulocytes (1.4-6.9) x10^3/uL Basophils # (0-0.4) x10^3/uL PT 23.6 H (9.4-12.5) SECONDS INR 2.30 (0.8-3.0) Sodium 139 (137-145) mmol/L Potassium 3.9 (3.5-5.1) mmol/L Chloride 103 (98-107) mmol/L Carbon Dioxide 27 (22-30) mmol/L Anion Gap 13.3 (5-15) MEQ/L BUN 24 H (7-17) mg/dL Creatinine 0.73 (0.52-1.04) mg/dL Estimated GFR > 60.0 ML/MIN Glucose 139 H (74-106) mg/dL Lactic Acid (0.4-2.0) Calcium 9.0 (8.4-10.2) mg/dL Magnesium (1.6-2.3) mg/dL Total Bilirubin (0.2-1.3) mg/dL AST (14-36) U/L ALT (0-35) U/L Alkaline Phosphatase (38-126) U/L Troponin I < 0.012 (0.000-0.034) ng/mL NT-Pro-B Natriuret Pep (<300) pg/mL Serum Total Protein (6.3-8.2) g/dL Albumin (3.5-5.0) g/dL Procalcitonin (0.030-0.080) ng/mL Urine Color (Yellow) Urine Appearance (Clear) Urine pH (4.6-8.0) Ur Specific [place] (1.005-1.030) Urine Protein (Negative) Urine Glucose (UA) (Negative) mg/dL Urine Ketones (Negative) Urine Blood (Negative) Urine Nitrite (Negative) Urine Bilirubin (Negative) Urine Urobilinogen (0.2) mg/dL Ur Leukocyte Esterase (Negative) U Hyaline Cast (Auto) (0-2) /LPF Urine Microscopic RBC (0-5) /HPF Urine Microscopic WBC (0-5) /HPF Ur Epithelial Cells (None Seen) /HPF Urine Bacteria (None Seen) /HPF Urine Culture Reflexed (NO) Influenza Type A Ag (NEGATIVE) Influenza Type B Ag (NEGATIVE) RSV (PCR) (NEGATIVE) SARS-CoV-2 (PCR) (NEGATIVE) Slides for Path Review Radiology Exams: Radiology Procedures Category Date Time Status CHEST 1 VIEW (PORTABLE) Stat Exams 08/01/22 21:32 Completed LUMBAR LIMITED (2 OR 3 VIEWS) Routine Exams 08/02/22 11:05 Taken Multi-Disciplinary Progress Notes: Multi-Disciplinary Progress Notes 08/02/22 12:03 Case Management Note by Lilian Reyes ORDER FOR ROLLATOR SUBMITTED TO [facility] VIA [place]. DELIVERY PLACED FOR EITHER HERE OR [facility]. [facility] PHONE NUMBER PLACED ON DC INSTRUCTIONS IN CASE FAMILY NEEDS TO FOLLOW UP Initialized on 08/02/22 12:03 - END OF NOTE 08/02/22 11:30 (created 08/02/22 12:05) Case Management Note by Lilian Reyes PER [facility] (PT) PATIENT WOULD BENEFIT FROM ROLLATOR AND HAS DECLINED BOTH HHC AND OTPT PT. Initialized on 08/02/22 12:05 - END OF NOTE Assessment/Plan (1) Bilateral pneumonia Current Visit: Yes Status: Acute Assessment & Plan: Continue antibiotics and monitor clinical response. Code(s): J18.9 - PNEUMONIA, UNSPECIFIED ORGANISM (2) Cough Current Visit: Yes Status: Acute Assessment & Plan: Improving Code(s): R05.9 - COUGH, UNSPECIFIED (3) COPD exacerbation Current Visit: Yes Status: Acute Assessment & Plan: Continue current regimen. Air movement is improved. Code(s): J44.1 - CHRONIC OBSTRUCTIVE PULMONARY DISEASE W (ACUTE) EXACERBATION (4) Chronic lumbar pain Current Visit: Yes Status: Acute Assessment & Plan: Analgesia and PT. Code(s): M54.50 - LOW BACK PAIN, UNSPECIFIED; G89.29 - OTHER CHRONIC PAIN
[2022-08-02] MEDS ORDERED: Coumadin 3 MG PO SCH (18:00)
[2022-08-02] MEDS ORDERED: JANTOVEN PO SCH (18:00)
[2022-08-02] MEDS ORDERED: ZOCOR 20MG PO SCH (22:00)
[2022-08-02] MEDS ORDERED: Zithromax 500 MG/ 250 ML NaCl Premix 500 MG/250 ML IVPB IV SCH (22:00)
--- NOTE | 2022-08-02 22:46 | XRAY ---
CLINICAL HISTORY:Lower back pain; COMPARISON:07/27/2022; TECHNIQUES:X-ray of the lumbar spine, AP, spot L5-S1, and lateral views; FINDINGS: Grade 1/2 anterolisthesis of L5 over S1 noted. Degenerative changes in the visualized spine, with marginal osteophytes and endplate sclerosis. Mild compression of the upper end-plate of L1. Wedging of lower thoracic vertebrae. Multilevel disc space narrowing with facet hypertrophy. The soft tissues appear unremarkable. Overall bone density is reduced. IMPRESSION: Grade 1/2 anterolisthesis of L5 over S1. Osteoporosis. Advanced lumbar spondylosis manifested by small anterolateral osteophytes and facet joint osteoarthritic changes. Wedging of lower thoracic vertebrae. Mild upper compression of L1. No significant interval changes since the previous study dated 07/27/22. Further evaluation with MR is recommended. Electronically Signed by: La Montoya MD. (08/02/2022 21:39:21 PRESS LOADER;)
[2022-08-03] MEDS: solu-MEDROL 60 MG, Sterile H2O 10 ml 2 ML IV SCH ×4 (00:02→06:34)
[2022-08-03] MEDS: TORAdol 30 mg Injection IV PRN ×2 (03:56→13:29)
[2022-08-03 05:28] LABS: Absolute Neutrophil Ct (ANC) 9.89 x10^3/uL (1.4-6.9); BASOPHIL % 0.2 % (0.0-0.4); Basophil (Absolute #) 0.02 x10^3/uL (0-0.4); Eosinophil (Absolute #) 0 x10^3/uL (0-0.5); Hematocrit 38.3 % (35-47); Hemoglobin 12.3 g/dL (12.0-16.0); IMMATURE GRAN # 0.08 x10^3u/L (0.00-0.03); IMMATURE GRAN % 0.7 % (0.00-0.4); Lymphocyte (Absolute #) 0.68 x10^3/uL (1.0-4.6); Lymphocytes % 6.2 % (24.0-44.0); Mean Corpuscular Hemoglobin 31.1 pg (26-32); Mean Corpuscular Hgb Concent. 32.1 g/dL (32-36); Mean Platelet Volume 10.2 fL (7.5-11.0); Monocyte (Absolute #) 0.27 x10^3/uL (0.0-1.3); Monocytes % 2.5 % (0.0-12.0); Neutrophil % 90.4 % (36.0-66.0); Platelet Count 213 x10^3/uL (150-450); Red Blood Count 3.95 x10^6/uL (4.1-5.4); Red Cell Distribution Width 13.1 % (11.5-14.0); White Blood Count 10.9 x10^3/uL (4.0-10.5)
[2022-08-03 05:35] LABS: INR 1.8 (0.8-3.0); PROTIME 18.8 SECONDS (9.4-12.5)
[2022-08-03 05:46] LABS: ANION GAP 11.6 MEQ/L (5-15); BLOOD UREA NITROGEN 21 mg/dL (7-17); CHLORIDE 100 mmol/L (98-107); Calcium 8.7 mg/dL (8.4-10.2); Carbon Dioxide 29 mmol/L (22-30); Creatinine 1 0.72 mg/dL (0.52-1.04); EST GLOMERULAR FILTRATION RATE > 60.0 ML/MIN; Glucose 136 mg/dL (74-106); Potassium 4.1 mmol/L (3.5-5.1); SODIUM 137 mmol/L (137-145)
[2022-08-03] MEDS: Zanaflex 4 MG PO PRN ×2 (06:43→14:14)
[2022-08-03] MEDS: Advair Hfa 230/21 Mcg COMMON CANISTER IH SCH (07:30)
[2022-08-03] MEDS: SYNTHROID 150 MCG PO SCH (08:02)
[2022-08-03] MEDS: celeBREX 100 MG PO SCH (09:46)
[2022-08-03] MEDS: LASIX 20 MG PO SCH (09:46)
[2022-08-03] MEDS: Protonix 20MG Tablet PO SCH (09:46)
[2022-08-03 13:10] VITALS: BP 141/64; PULSE 86; O2SAT 92
--- NOTE | 2022-08-03 17:51 | PCM.DS ---
Discharge Summary Date of Admission: 08/01/22 23:11 Date of Discharge: 08/03/22 Admitting Physician: OTILIA EATON MD Primary Care Provider: DAREN AJIN Allergies Allergies hydrocodone bitartrate [From Vicodin] Allergy (Severe, Verified 08/01/22 21:32) Itching Hospital Summary - Hospital Course Hospital Course: Patient's respiratory status improved with treatment. Will complete course of antibiotics (convert to cefdinir and azithromycin) and oral prednisone taper. The patient also will receive a prescription for tizanidine. Outpatient PT has been ordered, and the patient can follow up with Dr. Jain as well as pain management (Dr. Nunes) to further discuss her celebrex dosing; in the meantime, she has been advised to resume her prior dose scheme (200 mg po bid) until she sees her outpatient team. The patient was seen and examined via telemedicine. The entirety of this encounter was performed via telemedicine. The patient consented to this telemedicine encounter. - Vitals & Intake/Output Vital Signs: Vital Signs Temperature 97.4 F 08/03/22 12:00 Pulse Rate 86 08/03/22 12:00 Respiratory Rate 16 08/03/22 12:00 Blood Pressure 141/64 08/03/22 12:00 O2 Sat by Pulse Oximetry 92 L 08/03/22 12:00 Intake & Output: Intake & Output 08/01/22 08/02/22 08/03/22 08/04/22 11:59 11:59 11:59 11:59 Intake Total 953 1080 360 Output Total 850 1200 1500 Balance 103 -120 -1140 Weight 113.1 kg 112.6 kg - Lab Result Diagrams: 08/03/22 04:34 08/03/22 04:34 Lab Results-Last 24 Hrs: Lab Results-Last 24 Hours 08/03/22 08/03/22 08/03/22 Range/Units 04:34 04:34 04:34 WBC 10.9 H (4.0-10.5) x10^3/uL RBC 3.95 L (4.1-5.4) x10^6/uL Hgb 12.3 (12.0-16.0) g/dL Hct 38.3 (35-47) % MCV 97.0 (78-100) fL MCH 31.1 (26-32) pg MCHC 32.1 (32-36) g/dL RDW 13.1 (11.5-14.0) % Plt Count 213 (150-450) x10^3/uL MPV 10.2 (7.5-11.0) fL Gran % 90.4 H (36.0-66.0) % Immature Gran % (Auto) 0.7 H (0.00-0.4) % Nucleat RBC Rel Count 0.0 (0.00-0.1) % Eos # (Auto) 0 (0-0.5) x10^3/uL Immature Gran # (Auto) 0.08 H (0.00-0.03) x10^3u/L Absolute Lymphs (auto) 0.68 L (1.0-4.6) x10^3/uL Absolute Monos (auto) 0.27 (0.0-1.3) x10^3/uL Absolute Nucleated RBC 0.00 (0.00-0.01) x10^3u/L Lymphocytes % 6.2 L (24.0-44.0) % Monocytes % 2.5 (0.0-12.0) % Eosinophils % 0.0 (0.00-5.0) % Basophils % 0.2 (0.0-0.4) % Absolute Granulocytes 9.89 H (1.4-6.9) x10^3/uL Basophils # 0.02 (0-0.4) x10^3/uL PT 18.8 H (9.4-12.5) SECONDS INR 1.80 (0.8-3.0) Sodium 137 (137-145) mmol/L Potassium 4.1 (3.5-5.1) mmol/L Chloride 100 (98-107) mmol/L Carbon Dioxide 29 (22-30) mmol/L Anion Gap 11.6 (5-15) MEQ/L BUN 21 H (7-17) mg/dL Creatinine 0.72 (0.52-1.04) mg/dL Estimated GFR > 60.0 ML/MIN Glucose 136 H (74-106) mg/dL Calcium 8.7 (8.4-10.2) mg/dL Micro Results-Entire Visit: Microbiology 08/01/22 21:51 Urine Culture - Final Catherized NO GROWTH - Radiology Exams Ordered Rad Exams-Entire Visit: Radiology Procedures Category Date Time Status CHEST 1 VIEW (PORTABLE) Stat Exams 08/01/22 21:32 Completed LUMBAR LIMITED (2 OR 3 VIEWS) Routine Exams 08/02/22 11:05 Completed - Procedures and Test Procedures and Tests throughout Hospitalization: Therapy Orders & Screens 08/01/22 21:46 Respiratory Therapy Assessment DAILY Comment: 08/01/22 23:22 Respiratory Therapy Consult ROUTINE Comment: Reason For Exam: 08/01/22 23:28 Oxygen Nasal Cannula 2 lpm Comment: Pt wears 2lpm HS at hm 08/02/22 01:34 Respiratory Therapy Consult ROUTINE Comment: Reason For Exam: Diagnosis: PNA COPD Exac 08/02/22 01:35 PT Eval & Treat (MD Order) ONCE Reason for Eval:: debility, back pain, spasms Diagnosis: PNA COPD Exac Discharge Exam General Appearance: no apparent distress, alert Neurologic Exam: alert, oriented x 3, cooperative, assembler product II-XII nml as tested, normal mood/affect, nml cerebellar function Eye Exam: PERRL, EOMI, eyes nml inspection Ears, Nose, Throat Exam: normal ENT inspection Neck Exam: normal inspection Respiratory Exam: normal breath sounds, lungs clear Cardiovascular Exam: regular rate/rhythm, normal heart sounds Gastrointestinal/Abdomen Exam: soft Pelvic Exam: deferred Rectal Exam: deferred Back Exam: normal inspection, normal range of motion Extremity Exam: normal inspection, normal range of motion Skin Exam: normal color Final Diagnosis/Problem List - Final Discharge Diagnosis/Problem (1) Bilateral pneumonia Status: Acute Assessment & Plan: improved. convert to oral antibiotics Code(s): J18.9 - PNEUMONIA, UNSPECIFIED ORGANISM (2) Cough Status: Acute Assessment & Plan: transition to oral prednisone taper Code(s): R05.9 - COUGH, UNSPECIFIED (3) COPD exacerbation Status: Acute Code(s): J44.1 - CHRONIC OBSTRUCTIVE PULMONARY DISEASE W (ACUTE) EXACERBATION (4) Chronic lumbar pain Status: Acute Assessment & Plan: follow up with PT, PCP and pain management Code(s): M54.50 - LOW BACK PAIN, UNSPECIFIED; G89.29 - OTHER CHRONIC PAIN - Discharge Disposition: Home, Self-Care Condition: Stable Prescriptions: New Azithromycin 500 mg PO DAILY 3 Days #3 tablet Cefdinir 300 mg PO BID #10 cap Prednisone 10 mg [Deltasone 10 mg] 10 mg PO UD #30 tab Continue Esomeprazole Magnesium [Nexium] 20 mg PO DAILY Levothyroxine Sodium 150 Mcg [Synthroid 150 Mcg] 150 mcg PO DAILY Warfarin Sodium 5 mg [Jantoven] 6 mg PO DAILY Pravastatin Sodium 20 mg PO HS Furosemide 40 mg [Lasix 40 MG] 20 mg PO DAILY Albuterol Sulfate Mdi [Proair Hfa MDI] 8.5 gm IH QID Budesonide/Formoterol Fumarate [Symbicort 160-4.5 Mcg Inhaler] 10.2 gm IH BID Changed Celecoxib 100 mg [celeBREX 100 MG] 200 mg PO BID #0 Tizanidine HCl 4 mg [Zanaflex 4 MG] 4 mg PO TIDPRN PRN #90 tablet PRN Reason: Pain Outpatient Orders: Physical Therapy Eval & Treat Facility: [facility] Hosp, Location: PHYSICAL THERAPY Physical Therapy Eval & Treat Facility: [facility] Hosp, Location: PHYSICAL THERAPY Instructions: Pneumonia, Adult (DC), Generalized Weakness (DC), Exacerbation of COPD (DC) Additional Instructions: ROLLATOR WAS ORDERED THRU [facility]. THEY WILL CALL TO ARRANGE DELIVERY. THEIR PHONE NUMBER IS [phone] IF YOU NEED TO FOLLOW UP YOUR FIRST APPOINTMENT WITH PHYSICAL THERAPY IS 08/05 @2PM. IF THIS DOES NOT WORK YOU CAN CALL PHYSICAL THERAPY AT [phone] TO CHANGE YOUR APPOINTMENT PAIN MANAGEMENT OFFICE WILL CALL YOU TO MAKE AN APPT. THEY STATED IF YOU HAVE NOT HEARD FROM THEM BY MONDAY OR MONDAY YOU CAN CALL THEIR OFFICE AT [phone] Follow up with: DAREN JAIN MD [Primary Care Provider] - 08/10/22 10:15 am ([facility])
== END 2022-08-03 14:49 | disposition home or self-care (01) ==
LOC: ED 21:19 → MED SURG 23:11
PROVIDERS: ADMIT Internal Medicine; ATTEND General Practice
DX: J18.9 Pneumonia, unspecified organism (principal); R05.9 Cough, unspecified; J44.1 Chronic obstructive pulmonary disease with (acute) exacerbation; M54.50 Low back pain, unspecified; I11.0 Hypertensive heart disease with heart failure; I50.9 Heart failure, unspecified; G89.29 Other chronic pain; Z79.899 Other long term (current) drug therapy; Z20.828 Contact with and (suspected) exposure to other viral communicable diseases
CPT/HCPCS: 0241U; 36000; 36415; 51702; 71045; 72100; 80048; 80053; 81001; 83605; 83735; 83880; 84145; 84484; 85025; 85610; 87086; 93005; 93041; 94640; 94760; 96365; 96374; 96375; 97110; 97161; 99285; G0378; P9612; Q3014; J0456; J0696; J1885; J2920; J2930; A9270-GY

== ENCOUNTER 2023-04-12 12:15 | Observation (INO) | payer MEDICARE, OTHER ==
--- NOTE | 2023-04-12 12:18 | ERPHSYRPT ---
- History of Present Illness Allergies/Adverse Reactions: hydrocodone bitartrate [From Vicodin] Allergy (Severe, Verified 04/12/23 12:16) Itching Home Medications: Esomeprazole Magnesium [Nexium] 20 mg PO DAILY 12/30/12 [History] Levothyroxine Sodium 150 Mcg [Synthroid 150 Mcg] 150 mcg PO DAILY 12/30/12 [History] Warfarin Sodium 5 mg [Coumadin] 6 mg PO DAILY 12/30/12 [History] Albuterol Sulfate Mdi [ALBUTEROL/Proair Hfa MDI] 8.5 gm IH QID 06/03/18 [History] Budesonide/Formoterol Fumarate [Symbicort 160-4.5 Mcg Inhaler] 10.2 gm IH BID 06/03/18 [History] Furosemide 40 mg [Lasix 40 MG] 20 mg PO DAILY 06/03/18 [History] Pravastatin Sodium 20 mg PO HS 06/03/18 [History] Hx Tetanus, Diphtheria Vaccination/Date Given: No Hx Influenza Vaccination/Date Given: Yes Hx Pneumococcal Vaccination/Date Given: Yes Travel Risk - Vaccine Status Have you recieved a Covid-19 vaccination: Yes Pulp Mixer: Moderna - Vaccination Dates Date of 2cond Vaccination (if applicable): 12/11/20 - Past Medical History Pertinent Past Medical History: Yes Neurological History: Other ENT History: Cataracts Cardiac History: Arrhythmia, Congestive Heart Failure, Other Respiratory History: Asthma, COPD Endocrine Medical History: Hypothyroidism Musculoskeletal History: Other GI Medical History: Gallbladder Disease, Hernia History: No Pertinent History Psycho-Social History: No Pertinent History Female Reproductive Disorders: Fibroids Other Medical History: HX L-SPINE FX 1977; A FIB 2000; PT. USES 2L O2 AT NIGHT BUT NOT DURING DAY - Past Surgical History Past Surgical History: Yes Neuro Surgical History: No Pertinent History Cardiac: No Pertinent History Respiratory: No Pertinent History Gastrointestinal: Appendectomy, Cholecystectomy, Hernia Repair Genitourinary: No Pertinent History Musculoskeletal: Joint Replacement Female Surgical History: Hysterectomy Other Surgical History: Right knee replacement 2009. - Social History Smoking Status: Never smoker Exposure to second hand smoke: No Drug Use: none Patient Lives Alone: No Ordered Tests: Active Orders 24 hr Category Date Time Status [employer] STAT Care 04/12/23 12:17 Ordered EKG-ER Only STAT Care 04/12/23 12:17 Ordered IV Insertion STAT Care 04/12/23 12:17 Ordered CHEST 1 VIEW (PORTABLE) Stat Exams 04/12/23 12:17 Ordered BLOOD CULTURE Stat Lab 04/12/23 12:17 Ordered CBC W DIFF Stat Lab 04/12/23 12:17 Ordered CMP Stat Lab 04/12/23 12:17 Ordered Lactic Acid Stat Lab 04/12/23 12:17 Ordered MAGNESIUM Stat Lab 04/12/23 12:17 Ordered NT PRO BNPII Stat Lab 04/12/23 Ordered PROTIME WITH INR Stat Lab 04/12/23 12:17 Ordered TROPONIN Q4H Lab 04/12/23 12:30 Ordered TROPONIN Q4H Lab 04/12/23 16:30 Ordered TROPONIN Q4H Lab 04/12/23 20:30 Ordered - Departure Referrals: DAREN JAIN MD [Primary Care Provider] - Follow up/PCP as directed
[2023-04-12] MEDS: DUONEB 0.5-3 MG/3 ml Neb IH ONE (12:26)
[2023-04-12] MEDS ORDERED: DUONEB 0.5-3 MG/3 ml Neb IH ONE (12:26)
[2023-04-12 12:51] LABS: Absolute Neutrophil Ct (ANC) 3.11 x10^3/uL (1.4-6.9); BASOPHIL % 0.8 % (0.0-0.4); Basophil (Absolute #) 0.04 x10^3/uL (0-0.4); Eosinophil % 1.6 % (0.00-5.0); Eosinophil (Absolute #) 0.08 x10^3/uL (0-0.5); Hematocrit 40.2 % (35-47); Hemoglobin 12.8 g/dL (12.0-16.0); IMMATURE GRAN # 0.03 x10^3u/L (0.00-0.03); IMMATURE GRAN % 0.6 % (0.00-0.4); Lymphocyte (Absolute #) 1.28 x10^3/uL (1.0-4.6); Lymphocytes % 25.5 % (24.0-44.0); Mean Corpuscular Hemoglobin 31.5 pg (26-32); Mean Corpuscular Hgb Concent. 31.8 g/dL (32-36); Mean Platelet Volume 10.4 fL (7.5-11.0); Monocyte (Absolute #) 0.48 x10^3/uL (0.0-1.3); Monocytes % 9.6 % (0.0-12.0); Neutrophil % 61.9 % (36.0-66.0); Platelet Count 160 x10^3/uL (150-450); Red Blood Count 4.06 x10^6/uL (4.1-5.4); Red Cell Distribution Width 13.4 % (11.5-14.0)
[2023-04-12 13:06] LABS: INR 1.74 (0.8-3.0); PROTIME 18.3 SECONDS (9.4-12.5)
--- NOTE | 2023-04-12 13:09 | XRAY ---
Indication: Cough. Comparison: August 01, 2022 Portable chest again demonstrates cardiomegaly with large hiatal hernia and intrathoracic stomach. Lungs demonstrates worsening mild/moderate bibasilar infiltrates versus atelectasis. Bony thorax intact again with osteopenia and moderate/advanced degenerative changes.
[2023-04-12 13:14] LABS: ALBUMIN 4.2 g/dL (3.5-5.0); ANION GAP 10.7 MEQ/L (5-15); BILIRUBIN,TOTAL 0.8 mg/dL (0.2-1.3); Calcium 8.8 mg/dL (8.4-10.2); Creatinine 1 0.66 mg/dL (0.52-1.04); EST GLOMERULAR FILTRATION RATE 85.4 ML/MIN; MAGNESIUM 1.9 mg/dL (1.6-2.3); Potassium 3.6 mmol/L (3.5-5.1); Total Protein 6.9 g/dL (6.3-8.2)
[2023-04-12 13:28] LABS: INFLUENZA A NEGATIVE (NEGATIVE); INFLUENZA B NEGATIVE (NEGATIVE)
[2023-04-12 13:31] LABS: RESPIRATORY SYNCTIAL VIRUS POSITIVE (NEGATIVE); SARS-CoV-2 Xpert Express POSITIVE (NEGATIVE)
[2023-04-12 14:04] LABS: Appearance Clear (Clear); Bacteria None Seen /HPF (None Seen); Bilirubin Negative (Negative); Blood Small (Negative); Epithelial Cells None Seen /HPF (None Seen); Glucose, Urine Negative (Negative); Hyaline Casts NONE SEEN /LPF (0-2); Ketones Negative (Negative); Leukocyte Esterase Negative (Negative); Nitrite Negative (Negative); Ph 6.5 (4.6-8.0); Protein,Urine Dip Negative (Negative); RBC 0-2 /HPF (0-5); WBC 0-2 /HPF (0-5)
[2023-04-12 14:25] LABS: ADD URINE CULTURE? NO (NO)
--- NOTE | 2023-04-12 14:40 | ERPHSYRPT ---
- History of Present Illness Time Seen by Provider: 04/12/23 12:18 Source: patient Exam Limitations: no limitations Patient Subjective Stated Complaint: "I have a cold" Triage Nursing Assessment: Patient reports to ER with c/o shortness of breath o lindy the last couple of days. Patients was brought back to room via wheelchair with the assistance of her daughter. Patient reports productive cough with thick yellow and white sputum. Patient does have a history of COPD but denies smoking. Patient denies fever and is afebrile at this time. Patient resting in bed with easy respirations and O2 sats 96% on room air. Lung sounds clear bilateral posterior with minimal wheezing. Physician History: 87 years old female with history of COPD, atrial fibrillation on Coumadin presented in the ER with complaint of cough congestion for the last 2 days with progressive worsening. Patient has been evaluated outpatient currently on amoxicillin with no significant relief. Patient reports difficulty breathing because of sinus congestion with wheezing and coughing up clear to yellow sputum moderate in amount and getting short of breath with activity. Denies any fever but generalized weakness fatigue and tiredness. Allergies/Adverse Reactions: hydrocodone bitartrate [From Vicodin] Allergy (Severe, Verified 04/12/23 12:16) Itching Home Medications: Esomeprazole Magnesium [Nexium] 20 mg PO DAILY 12/30/12 [History] Levothyroxine Sodium 150 Mcg [Synthroid 150 Mcg] 150 mcg PO DAILY 12/30/12 [History] Albuterol Sulfate Mdi [ALBUTEROL/Proair Hfa MDI] 8.5 gm IH QID 06/03/18 [History] Budesonide/Formoterol Fumarate [Symbicort 160-4.5 Mcg Inhaler] 10.2 gm IH BID 06/03/18 [History] Furosemide 40 mg [Lasix 40 MG] 20 mg PO DAILY 06/03/18 [History] Pravastatin Sodium 80 mg PO HS 06/03/18 [History] Warfarin Sodium 3 mg [Coumadin 3 MG] 6 mg PO DAILY 04/12/23 [History] Hx Tetanus, Diphtheria Vaccination/Date Given: No Hx Influenza Vaccination/Date Given: Yes Hx Pneumococcal Vaccination/Date Given: Yes Travel Risk - International Travel Have you traveled outside of the country in past 3 weeks: No - Coronavirus Screening Are you exhibiting any of the following symptoms?: No Close contact with a COVID-19 positive Pt in past 14-21 Days: No - Vaccine Status Have you recieved a Covid-19 vaccination: Yes Produce Buyer: Moderna - Vaccination Dates Date of 2cond Vaccination (if applicable): unk - Review of Systems Constitutional: Fatigue, Weakness Eyes: No Symptoms Ears, Nose, & Throat: Nose Congestion Respiratory: Cough, Dyspnea, Wheezing Cardiac: No Symptoms Abdominal/Gastrointestinal: No Symptoms Genitourinary Symptoms: No Symptoms Musculoskeletal: Myalgias Skin: No Symptoms Neurological: No Symptoms Endocrine: No Symptoms Hematologic/Lymphatic: No Symptoms - Past Medical History Pertinent Past Medical History: Yes Neurological History: Other ENT History: Cataracts Cardiac History: Arrhythmia, Congestive Heart Failure, Other Respiratory History: Asthma, COPD Endocrine Medical History: Hypothyroidism Musculoskeletal History: Other GI Medical History: Gallbladder Disease, Hernia History: No Pertinent History Psycho-Social History: No Pertinent History Female Reproductive Disorders: Fibroids Other Medical History: HX L-SPINE FX 1977; A FIB 2000; PT. USES 2L O2 AT NIGHT BUT NOT DURING DAY - Past Surgical History Past Surgical History: Yes Neuro Surgical History: No Pertinent History Cardiac: No Pertinent History Respiratory: No Pertinent History Gastrointestinal: Appendectomy, Cholecystectomy, Hernia Repair Genitourinary: No Pertinent History Musculoskeletal: Joint Replacement Female Surgical History: Hysterectomy Other Surgical History: Right knee replacement 2009. - Social History Smoking Status: Never smoker Exposure to second hand smoke: No Drug Use: none Patient Lives Alone: No - Nursing Vital Signs Nursing Vital Signs: Initial Vital Signs Temperature 98.3 F 04/12/23 12:17 Pulse Rate 98 H 04/12/23 12:17 Respiratory Rate 19 04/12/23 12:17 Blood Pressure 145/56 04/12/23 12:17 O2 Sat by Pulse Oximetry 94 L 04/12/23 12:17 Pain Scale Pain Intensity 0 - Physical Exam General Appearance: no apparent distress, alert Eye Exam: PERRL/EOMI Ears, Nose, Throat Exam: hearing grossly normal, nasal congestion Neck Exam: normal inspection, non-tender, supple, full range of motion Respiratory Exam: normal breath sounds, wheezing Cardiovascular/Chest Exam: normal heart sounds, regular rate/rhythm Abdominal/Gastrointestinal Exam: soft, normal bowel sounds, No tenderness Extremity Exam: non-tender Neurologic Exam: alert, oriented x 3, cooperative, 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 Skin Exam: normal color SpO2 Interpretation: normal SpO2: 97 O2 Delivery: Room Air - Course EKG Interpreted by Me: RATE (78), Sinus Rhythm, NORMAL AXIS, NORMAL INTERVALS, Non-specific ST Changes Ordered Tests: Active Orders 24 hr Category Date Time Status TROPONIN Q4H Lab 04/12/23 20:26 Completed Medication Summary Discontinued Medications Generic Name Dose Route Start Last Admin Trade Name Freq PRN Reason Stop Dose Admin Albuterol/Ipratropium 3 ml 04/12/23 12:17 04/12/23 12:26 Ipratropium/Albuterol Sulfate 3 Ml Ampul[facility] 04/12/23 12:18 3 ml STAT ONE Administration Albuterol/Ipratropium Confirm 04/12/23 12:26 Ipratropium/Albuterol Sulfate 3 Ml Ampul.Neb Administered 04/12/23 12:27 Dose 3 ml IH .STK-MED ONE Albuterol/Ipratropium 3 ml 04/12/23 19:00 04/13/23 13:19 Ipratropium/Albuterol Sulfate 3 Ml Ampul.[facility] 05/12/23 18:59 3 ml TIDRT BETO Administration Albuterol/Ipratropium 3 ml 04/13/23 02:28 04/13/23 02:38 Ipratropium/Albuterol Sulfate 3 Ml Ampul.[facility] 05/13/23 02:27 3 ml Q4HPRN PRN Administration SHORTNESS OF BREATH/WHEEZING Benzonatate 100 mg 04/12/23 23:11 04/12/23 23:21 Benzonatate 100 Mg Capsule PO 05/12/23 23:10 100 mg Q8H PRN PRN Administration COUGH Celecoxib 200 mg 04/12/23 22:00 04/13/23 09:13 Celecoxib 100 Mg Capsule PO 05/12/23 21:59 200 mg BID BETO Administration Furosemide 20 mg 04/13/23 10:00 04/13/23 09:13 Furosemide 20 Mg Tablet PO 05/13/23 09:59 20 mg DAILY BETO Administration Guaifenesin 600 mg 04/12/23 22:00 04/13/23 09:13 Guaifenesin 600 Mg Tablet Er PO 05/12/23 21:59 600 mg BID BETO Administration Guaifenesin 10 ml 04/12/23 23:17 Guaifenesin 100 Mg/5 Ml 118 Ml Bottle PO 05/12/23 23:16 Q8H PRN PRN COUGH Ceftriaxone Sodium/Dextrose 2 g in 50 mls @ 100 mls/hr 04/12/23 15:02 04/12/23 15:20 Rocephin 2 Gm-D5w 50ml Bag IV 04/12/23 15:31 100 mls/hr STAT STA 100 mls/hr Administration Azithromycin 500 mg in 250 mls @ 250 mls/hr 04/12/23 15:02 04/12/23 16:34 Zithromax 500 Mg/ 250 Ml Nacl Premix IV 04/12/23 16:01 Not Given STAT STA Ceftriaxone Sodium/Dextrose Confirm 04/12/23 15:19 Rocephin 2 Gm-D5w 50ml Bag Administered 04/12/23 15:20 Dose 2 g in 50 mls @ ud IV .STK-MED ONE Ceftriaxone Sodium 1 gm in 100 mls @ 200 mls/hr 04/13/23 10:00 04/13/23 09:13 Rocephin 1 Gm / 100 Ml Nacl IV 05/13/23 09:59 200 mls/hr DAILY BETO Administration Azithromycin 500 mg in 250 mls @ 250 mls/hr 04/12/23 17:00 04/13/23 09:13 Zithromax 500 Mg/ 250 Ml Nacl Premix IV 05/12/23 16:59 250 mls/hr Q24H10 BETO Administration Levothyroxine Sodium 150 mcg 04/13/23 10:00 04/13/23 09:13 Levothyroxine Sodium 150 Mcg Tablet PO 05/13/23 09:59 150 mcg DAILY BETO Administration Miscellaneous Information 1 each 04/12/23 17:00 04/13/23 07:46 Medication Intervention 1 Each Each 05/12/23 16:59 1 each .RT TO CHECK BETO Administration Pantoprazole Sodium 20 mg 04/13/23 10:00 04/13/23 09:13 Pantoprazole 20 Mg Tab PO 05/13/23 09:59 20 mg DAILY BETO Administration Symbicort Inhaler 2 each 04/13/23 19:00 IH 05/13/23 18:59 BIDRT BETO Simvastatin 20 mg 04/12/23 22:00 Simvastatin 20 Mg Tablet PO 05/12/23 21:59 HS BETO Simvastatin 80 mg 04/12/23 22:00 04/12/23 21:01 Simvastatin 20 Mg Tablet PO 05/12/23 21:59 80 mg HS BETO Administration Tizanidine HCl 4 mg 04/12/23 16:35 Tizanidine Hcl 4 Mg Tablet PO 05/12/23 16:34 TIDPRN PRN PAIN Warfarin Sodium 6 mg 04/12/23 18:00 04/12/23 18:02 Warfarin Sodium 3 Mg Tablet PO 05/12/23 17:59 6 mg COU BETO Administration Lab/Rad Data: Laboratory Result Diagrams 04/12/23 12:30 04/12/23 12:30 Laboratory Results 04/12/23 04/12/23 04/12/23 Range/Units 13:27 12:40 12:30 WBC (4.0-10.5) x10^3/uL RBC (4.1-5.4) x10^6/uL Hgb (12.0-16.0) g/dL Hct (35-47) % MCV (78-100) fL MCH (26-32) pg MCHC (32-36) g/dL RDW (11.5-14.0) % Plt Count (150-450) x10^3/uL MPV (7.5-11.0) fL Gran % (36.0-66.0) % Immature Gran % (Auto) (0.00-0.4) % Nucleat RBC Rel Count (0.00-0.1) % Eos # (Auto) (0-0.5) x10^3/uL Immature Gran # (Auto) (0.00-0.03) x10^3u/L Absolute Lymphs (auto) (1.0-4.6) x10^3/uL Absolute Monos (auto) (0.0-1.3) x10^3/uL Absolute Nucleated RBC (0.00-0.01) x10^3u/L Lymphocytes % (24.0-44.0) % Monocytes % (0.0-12.0) % Eosinophils % (0.00-5.0) % Basophils % (0.0-0.4) % Absolute Granulocytes (1.4-6.9) x10^3/uL Basophils # (0-0.4) x10^3/uL PT (9.4-12.5) SECONDS INR (0.8-3.0) Sodium (137-145) mmol/L Potassium (3.5-5.1) mmol/L Chloride (98-107) mmol/L Carbon Dioxide (22-30) mmol/L Anion Gap (5-15) MEQ/L BUN (7-17) mg/dL Creatinine (0.52-1.04) mg/dL Estimated GFR ML/MIN Glucose (74-106) mg/dL Lactic Acid (0.4-2.0) Calcium (8.4-10.2) mg/dL Magnesium (1.6-2.3) mg/dL Total Bilirubin (0.2-1.3) mg/dL AST (14-36) U/L ALT (0-35) U/L Alkaline Phosphatase (38-126) U/L Troponin I < 0.012 (0.000-0.034) ng/mL NT-Pro-B Natriuret Pep (<300) pg/mL Serum Total Protein (6.3-8.2) g/dL Albumin (3.5-5.0) g/dL Urine Color Yellow (Yellow) Urine Appearance Clear (Clear) Urine pH 6.5 (4.6-8.0) Ur Specific [place] 1.010 (1.005-1.030) Urine Protein Negative (Negative) Urine Glucose (UA) Negative (Negative) mg/dL Urine Ketones Negative (Negative) Urine Blood Small A (Negative) Urine Nitrite Negative (Negative) Urine Bilirubin Negative (Negative) Urine Urobilinogen 1.0 A (0.2) mg/dL Ur Leukocyte Esterase Negative (Negative) U Hyaline Cast (Auto) NONE SEEN (0-2) /LPF Urine Microscopic RBC 0-2 (0-5) /HPF Urine Microscopic WBC 0-2 (0-5) /HPF Ur Epithelial Cells None Seen (None Seen) /HPF Urine Bacteria None Seen (None Seen) /HPF Urine Culture Reflexed NO (NO) Influenza Type A Ag NEGATIVE (NEGATIVE) Influenza Type B Ag NEGATIVE (NEGATIVE) RSV (PCR) POSITIVE A (NEGATIVE) SARS-CoV-2 (PCR) POSITIVE A (NEGATIVE) 04/12/23 04/12/2324 Range/Units 12:30 12:30 12:30 WBC 5.0 (4.0-10.5) x10^3/uL RBC 4.06 L (4.1-5.4) x10^6/uL Hgb 12.8 (12.0-16.0) g/dL Hct 40.2 (35-47) % MCV 99.0 (78-100) fL MCH 31.5 (26-32) pg MCHC 31.8 L (32-36) g/dL RDW 13.4 (11.5-14.0) % Plt Count 160 (150-450) x10^3/uL MPV 10.4 (7.5-11.0) fL Gran % 61.9 (36.0-66.0) % Immature Gran % (Auto) 0.6 H (0.00-0.4) % Nucleat RBC Rel Count 0.0 (0.00-0.1) % Eos # (Auto) 0.08 (0-0.5) x10^3/uL Immature Gran # (Auto) 0.03 (0.00-0.03) x10^3u/L Absolute Lymphs (auto) 1.28 (1.0-4.6) x10^3/uL Absolute Monos (auto) 0.48 (0.0-1.3) x10^3/uL Absolute Nucleated RBC 0.00 (0.00-0.01) x10^3u/L Lymphocytes % 25.5 (24.0-44.0) % Monocytes % 9.6 (0.0-12.0) % Eosinophils % 1.6 (0.00-5.0) % Basophils % 0.8 (0.0-0.4) % Absolute Granulocytes 3.11 (1.4-6.9) x10^3/uL Basophils # 0.04 (0-0.4) x10^3/uL PT 18.3 H (9.4-12.5) SECONDS INR 1.74 (0.8-3.0) Sodium 138 (137-145) mmol/L Potassium 3.6 (3.5-5.1) mmol/L Chloride 103 (98-107) mmol/L Carbon Dioxide 28 (22-30) mmol/L Anion Gap 10.7 (5-15) MEQ/L BUN 13 (7-17) mg/dL Creatinine 0.66 (0.52-1.04) mg/dL Estimated GFR 85.4 ML/MIN Glucose 130 H (74-106) mg/dL Lactic Acid (0.4-2.0) Calcium 8.8 (8.4-10.2) mg/dL Magnesium 1.9 (1.6-2.3) mg/dL Total Bilirubin 0.80 (0.2-1.3) mg/dL AST 22 (14-36) U/L ALT 9 (0-35) U/L Alkaline Phosphatase 75 (38-126) U/L Troponin I (0.000-0.034) ng/mL NT-Pro-B Natriuret Pep 428 (<300) pg/mL Serum Total Protein 6.9 (6.3-8.2) g/dL Albumin 4.2 (3.5-5.0) g/dL Urine Color (Yellow) Urine Appearance (Clear) Urine pH (4.6-8.0) Ur Specific [place] (1.005-1.030) Urine Protein (Negative) Urine Glucose (UA) (Negative) mg/dL Urine Ketones (Negative) Urine Blood (Negative) Urine Nitrite (Negative) Urine Bilirubin (Negative) Urine Urobilinogen (0.2) mg/dL Ur Leukocyte Esterase (Negative) U Hyaline Cast (Auto) (0-2) /LPF Urine Microscopic RBC (0-5) /HPF Urine Microscopic WBC (0-5) /HPF Ur Epithelial Cells (None Seen) /HPF Urine Bacteria (None Seen) /HPF Urine Culture Reflexed (NO) Influenza Type A Ag (NEGATIVE) Influenza Type B Ag (NEGATIVE) RSV (PCR) (NEGATIVE) SARS-CoV-2 (PCR) (NEGATIVE) 04/12/23 Range/Units 12:17 WBC (4.0-10.5) x10^3/uL RBC (4.1-5.4) x10^6/uL Hgb (12.0-16.0) g/dL Hct (35-47) % MCV (78-100) fL MCH (26-32) pg MCHC (32-36) g/dL RDW (11.5-14.0) % Plt Count (150-450) x10^3/uL MPV (7.5-11.0) fL Gran % (36.0-66.0) % Immature Gran % (Auto) (0.00-0.4) % Nucleat RBC Rel Count (0.00-0.1) % Eos # (Auto) (0-0.5) x10^3/uL Immature Gran # (Auto) (0.00-0.03) x10^3u/L Absolute Lymphs (auto) (1.0-4.6) x10^3/uL Absolute Monos (auto) (0.0-1.3) x10^3/uL Absolute Nucleated RBC (0.00-0.01) x10^3u/L Lymphocytes % (24.0-44.0) % Monocytes % (0.0-12.0) % Eosinophils % (0.00-5.0) % Basophils % (0.0-0.4) % Absolute Granulocytes (1.4-6.9) x10^3/uL Basophils # (0-0.4) x10^3/uL PT (9.4-12.5) SECONDS INR (0.8-3.0) Sodium (137-145) mmol/L Potassium (3.5-5.1) mmol/L Chloride (98-107) mmol/L Carbon Dioxide (22-30) mmol/L Anion Gap (5-15) MEQ/L BUN (7-17) mg/dL Creatinine (0.52-1.04) mg/dL Estimated GFR ML/MIN Glucose (74-106) mg/dL Lactic Acid 1.5 (0.4-2.0) Calcium (8.4-10.2) mg/dL Magnesium (1.6-2.3) mg/dL Total Bilirubin (0.2-1.3) mg/dL AST (14-36) U/L ALT (0-35) U/L Alkaline Phosphatase (38-126) U/L Troponin I (0.000-0.034) ng/mL NT-Pro-B Natriuret Pep (<300) pg/mL Serum Total Protein (6.3-8.2) g/dL Albumin (3.5-5.0) g/dL Urine Color (Yellow) Urine Appearance (Clear) Urine pH (4.6-8.0) Ur Specific [place] (1.005-1.030) Urine Protein (Negative) Urine Glucose (UA) (Negative) mg/dL Urine Ketones (Negative) Urine Blood (Negative) Urine Nitrite (Negative) Urine Bilirubin (Negative) Urine Urobilinogen (0.2) mg/dL Ur Leukocyte Esterase (Negative) U Hyaline Cast (Auto) (0-2) /LPF Urine Microscopic RBC (0-5) /HPF Urine Microscopic WBC (0-5) /HPF Ur Epithelial Cells (None Seen) /HPF Urine Bacteria (None Seen) /HPF Urine Culture Reflexed (NO) Influenza Type A Ag (NEGATIVE) Influenza Type B Ag (NEGATIVE) RSV (PCR) (NEGATIVE) SARS-CoV-2 (PCR) (NEGATIVE) - Progress Progress: improved, re-examined Air Movement: good Progress Note: 04/12/23 15:41 87 years old is evaluated in the ER for worsening cough congestion for the last few days, no improvement with taking amoxicillin outpatient. Patient is not hypoxic but tachypneic on presentation. She is given DuoNeb, on reevaluation she is feeling much better. She is on room air around 94%. Chest x-ray showed bilateral infiltrative process, started on Rocephin and Zithromax. Workup showe d white count of 13, fairly unremarkable chemistries and negative troponins. EKG is normal sinus with no acute ST elevation. Patient has a positive RSV and COVID-19. I have discussed the results of workup with patient and family and offered observation admission which they agree. Discussed case with Dr. Lopez, patient is excepted for admission. Blood Culture(s) Obtained: Yes Antibiotics given: Yes Discussed with : Vern Will see patient in: hospital (observation) Counseled pt/family regarding: lab results, diagnosis, rad results - Departure Departure Disposition: Observation Clinical Impression: RSV infection, COVID-19 virus infection, Pneumonia Condition: Stable Critical Care Time: No
[2023-04-12] MEDS ORDERED: ROCEPHIN 2 Gm-D5w 50ML BAG** 2 G/50 ML IVPB IV ONE (15:19)
[2023-04-12] MEDS: ROCEPHIN 2 Gm-D5w 50ML BAG** 2 G/50 ML IVPB IV STA (15:20)
--- NOTE | 2023-04-12 16:27 | PCM.HP ---
History of Present Illness - Chief Complaint Chief Complaint: PNE, COVID19, RSV Date: 04/12/23 History of Present Illness: is a 87 year old female with pmhx of COPD, atrial fibrillation on Coumadin presented in the ER with complaint of cough congestion for the last 2 days with progressive worsening. She has been around her grandchild whom have been ill. She has been evaluated outpatient currently on amoxicillin with no significant relief. Patient reports difficulty breathing because of sinus congestion with wheezing and coughing up clear to yellow sputum moderate in amount and getting short of breath with activity. Denies any fever but generalized weakness fatigue and tiredness. Labs in ER pt is + for RSV and COVID. She is RA at 97%. CXR shows worsening mild/moderate bibasilar infiltrates versus atelectasis. She was started on ceftriaxone, azithromycin, and duonebs in the ER will continue with same plan of care. She denies CP, SOB, abd. pain, N/V/D. - Review of Systems Constitutional: Fatigue, No Fever, No Chills Eyes: No Symptoms Ears, Nose, & Throat: No Symptoms Respiratory: Cough, Short Of Breath Cardiac: No Chest Pain, No Edema, No Syncope Abdominal/Gastrointestinal: No Abdominal Pain, No Nausea, No Vomiting, No Diarrhea Genitourinary Symptoms: No Dysuria Musculoskeletal: No Back Pain, No Neck Pain Skin: No Rash Neurological: No Dizziness, No Focal Weakness, No Sensory Changes Psychological: No Symptoms Endocrine: No Symptoms Hematologic/Lymphatic: No Symptoms Immunological/Allergic: No Symptoms Medications & Allergies Home Medications: Home Medication List Esomeprazole Magnesium [Nexium] 20 mg PO DAILY 12/30/12 [History Confirmed 04/12/23] Levothyroxine Sodium 150 Mcg [Synthroid 150 Mcg] 150 mcg PO DAILY 12/30/12 [History Confirmed 04/12/23] Albuterol Sulfate Mdi [ALBUTEROL/Proair Hfa MDI] 8.5 gm IH QID 06/03/18 [History Confirmed 04/12/23] Budesonide/Formoterol Fumarate [Symbicort 160-4.5 Mcg Inhaler] 10.2 gm IH BID 06/03/18 [History Confirmed 04/12/23] Furosemide 40 mg [Lasix 40 MG] 20 mg PO DAILY 06/03/18 [History Confirmed 04/12/23] Pravastatin Sodium 20 mg PO HS 06/03/18 [History Confirmed 04/12/23] Celecoxib 100 mg [celeBREX 100 MG] 200 mg PO BID #0 08/03/22 [Rx Confirmed 04/12/23] Tizanidine HCl 4 mg [Zanaflex 4 MG] 4 mg PO TIDPRN PRN #90 tablet 08/03/22 [Rx Confirmed 04/12/23] Warfarin Sodium 3 mg [Coumadin 3 MG] 6 mg PO DAILY 04/12/23 [History Confirmed 04/12/23] Allergies/Adverse Reactions: Allergies Allergy/AdvReac Type Severity Reaction Status Date / Time hydrocodone bitartrate Allergy Severe Itching Verified 04/12/23 12:16 [From Vicodin] - Past Medical History Past Medical History: Yes Neurological History: Other ENT History: Cataracts Cardiac History: Arrhythmia, Congestive Heart Failure, Other Respiratory History: Asthma, COPD Endocrine Medical History: Hypothyroidism Musculoskelatal History: Other GI Medical History: Gallbladder Disease, Hernia History: No Pertinent History Pyscho-Social History: No Pertinent History Reproductive Disorders: Fibroids Comment: HX L-SPINE FX 1977; A FIB 2000; PT. USES 2L O2 AT NIGHT BUT NOT DURING DAY - Female History Are you now?: No - Past Surgical History Past Surgical History: Yes Neuro Surgical History: No Pertinent History Cardiac History: No Pertinent History Respiratory Surgery: No Pertinent History GI Surgical History: Appendectomy, Cholecystectomy, Hernia Repair Genitourinary Surgical Hx: No Pertinent History Musculskeletal Surgical Hx: Joint Replacement Female Surgical History: Hysterectomy Other Surgical History: Right knee replacement 2009. - Social History Smoking Status: Never smoker Exposure to second hand smoke: No Alcohol: None Drug Use: none - Social Determinants of Health Will the patient participate in the screening: Yes Do you worry about a steady place to live?: No Do you have any problems with any of the following?: No known problems In the past 12 months,have you had to go without utilities?: No Have you or anyone in your house had to go without enough: No Transportation Issues: No Has anyone in your support network made you feel unsafe?: No Does the patient want assistance with any of the above?: No - Physical Exam Vital Signs: Vital Signs - 24 hr Temp Pulse Resp BP BP Pulse Ox 04/12/23 15:42 97 04/12/23 15:01 124/86 04/12/23 14:31 84 23 141/75 95 04/12/23 14:01 83 17 130/85 95 04/12/23 13:31 85 24 141/66 93 L 04/12/23 13:01 101 H 18 151/66 97 04/12/23 12:32 92 H 20 96 04/12/23 12:17 98.3 F 95 H 26 H 145/56 145/56 95 General Appearance: no apparent distress, alert, obese Neurologic Exam: alert, oriented x 3, cooperative, normal mood/affect, nml cerebellar function, nml station & gait, sensation nml, No motor deficits Eye Exam: PERRL/EOMI, eyes nml inspection Ears, Nose, Throat Exam: normal ENT inspection, TMs normal, pharynx normal, mo ist mucous membranes Neck Exam: normal inspection, non-tender, supple, full range of motion Respiratory Exam: normal breath sounds, lungs clear, No respiratory distress Cardiovascular Exam: regular rate/rhythm, normal heart sounds, normal peripheral pulses, edema (+ 1 pitting) Gastrointestinal/Abdomen Exam: soft, normal bowel sounds, No tenderness, No mass Back Exam: normal inspection, normal range of motion, No CVA tenderness, No vertebral tenderness Extremity Exam: normal inspection, normal range of motion, pelvis stable Skin Exam: normal color, warm, dry, No rash Lymphatic Exam: No adenopathy Results - Labs Lab/Micro Results: Lab Results-Last 24 Hours 04/12/23 04/12/23 04/12/23 Range/Units 12:17 12:30 12:30 WBC 5.0 (4.0-10.5) x10^3/uL RBC 4.06 L (4.1-5.4) x10^6/uL Hgb 12.8 (12.0-16.0) g/dL Hct 40.2 (35-47) % MCV 99.0 (78-100) fL MCH 31.5 (26-32) pg MCHC 31.8 L (32-36) g/dL RDW 13.4 (11.5-14.0) % Plt Count 160 (150-450) x10^3/uL MPV 10.4 (7.5-11.0) fL Gran % 61.9 (36.0-66.0) % Immature Gran % (Auto) 0.6 H (0.00-0.4) % Nucleat RBC Rel Count 0.0 (0.00-0.1) % Eos # (Auto) 0.08 (0-0.5) x10^3/uL Immature Gran # (Auto) 0.03 (0.00-0.03) x10^3u/L Absolute Lymphs (auto) 1.28 (1.0-4.6) x10^3/uL Absolute Monos (auto) 0.48 (0.0-1.3) x10^3/uL Absolute Nucleated RBC 0.00 (0.00-0.01) x10^3u/L Lymphocytes % 25.5 (24.0-44.0) % Monocytes % 9.6 (0.0-12.0) % Eosinophils % 1.6 (0.00-5.0) % Basophils % 0.8 (0.0-0.4) % Absolute Granulocytes 3.11 (1.4-6.9) x10^3/uL Basophils # 0.04 (0-0.4) x10^3/uL PT (9.4-12.5) SECONDS INR (0.8-3.0) Sodium 138 (137-145) mmol/L Potassium 3.6 (3.5-5.1) mmol/L Chloride 103 (98-107) mmol/L Carbon Dioxide 28 (22-30) mmol/L Anion Gap 10.7 (5-15) MEQ/L BUN 13 (7-17) mg/dL Creatinine 0.66 (0.52-1.04) mg/dL Estimated GFR 85.4 ML/MIN Glucose 130 H (74-106) mg/dL Lactic Acid 1.5 (0.4-2.0) Calcium 8.8 (8.4-10.2) mg/dL Magnesium 1.9 (1.6-2.3) mg/dL Total Bilirubin 0.80 (0.2-1.3) mg/dL AST 22 (14-36) U/L ALT 9 (0-35) U/L Alkaline Phosphatase 75 (38-126) U/L Troponin I (0.000-0.034) ng/mL NT-Pro-B Natriuret Pep 428 (<300) pg/mL Serum Total Protein 6.9 (6.3-8.2) g/dL Albumin 4.2 (3.5-5.0) g/dL Urine Color (Yellow) Urine Appearance (Clear) Urine pH (4.6-8.0) Ur Specific Patterson (1.005-1.030) Urine Protein (Negative) Urine Glucose (UA) (Negative) mg/dL Urine Ketones (Negative) Urine Blood (Negative) Urine Nitrite (Negative) Urine Bilirubin (Negative) Urine Urobilinogen (0.2) mg/dL Ur Leukocyte Esterase (Negative) U Hyaline Cast (Auto) (0-2) /LPF Urine Microscopic RBC (0-5) /HPF Urine Microscopic WBC (0-5) /HPF Ur Epithelial Cells (None Seen) /HPF Urine Bacteria (None Seen) /HPF Urine Culture Reflexed (NO) Influenza Type A Ag (NEGATIVE) Influenza Type B Ag (NEGATIVE) RSV (PCR) (NEGATIVE) SARS-CoV-2 (PCR) (NEGATIVE) 04/12/23 04/12/23 04/12/23 Range/Units 12:30 12:30 12:40 WBC (4.0-10.5) x10^3/uL RBC (4.1-5.4) x10^6/uL Hgb (12.0-16.0) g/dL Hct (35-47) % MCV (78-100) fL MCH (26-32) pg MCHC (32-36) g/dL RDW (11.5-14.0) % Plt Count (150-450) x10^3/uL MPV (7.5-11.0) fL Gran % (36.0-66.0) % Immature Gran % (Auto) (0.00-0.4) % Nucleat RBC Rel Count (0.00-0.1) % Eos # (Auto) (0-0.5) x10^3/uL Immature Gran # (Auto) (0.00-0.03) x10^3u/L Absolute Lymphs (auto) (1.0-4.6) x10^3/uL Absolute Monos (auto) (0.0-1.3) x10^3/uL Absolute Nucleated RBC (0.00-0.01) x10^3u/L Lymphocytes % (24.0-44.0) % Monocytes % (0.0-12.0) % Eosinophils % (0.00-5.0) % Basophils % (0.0-0.4) % Absolute Granulocytes (1.4-6.9) x10^3/uL Basophils # (0-0.4) x10^3/uL PT 18.3 H (9.4-12.5) SECONDS INR 1.74 (0.8-3.0) Sodium (137-145) mmol/L Potassium (3.5-5.1) mmol/L Chloride (98-107) mmol/L Carbon Dioxide (22-30) mmol/L Anion Gap (5-15) MEQ/L BUN (7-17) mg/dL Creatinine (0.52-1.04) mg/dL Estimated GFR ML/MIN Glucose (74-106) mg/dL Lactic Acid (0.4-2.0) Calcium (8.4-10.2) mg/dL Magnesium (1.6-2.3) mg/dL Total Bilirubin (0.2-1.3) mg/dL AST (14-36) U/L ALT (0-35) U/L Alkaline Phosphatase (38-126) U/L Troponin I < 0.012 (0.000-0.034) ng/mL NT-Pro-B Natriuret Pep (<300) pg/mL Serum Total Protein (6.3-8.2) g/dL Albumin (3.5-5.0) g/dL Urine Color (Yellow) Urine Appearance (Clear) Urine pH (4.6-8.0) Ur Specific [place] (1.005-1.030) Urine Protein (Negative) Urine Glucose (UA) (Negative) mg/dL Urine Ketones (Negative) Urine Blood (Negative) Urine Nitrite (Negative) Urine Bilirubin (Negative) Urine Urobilinogen (0.2) mg/dL Ur Leukocyte Esterase (Negative) U Hyaline Cast (Auto) (0-2) /LPF Urine Microscopic RBC (0-5) /HPF Urine Microscopic WBC (0-5) /HPF Ur Epithelial Cells (None Seen) /HPF Urine Bacteria (None Seen) /HPF Urine Culture Reflexed (NO) Influenza Type A Ag NEGATIVE (NEGATIVE) Influenza Type B Ag NEGATIVE (NEGATIVE) RSV (PCR) POSITIVE A (NEGATIVE) SARS-CoV-2 (PCR) POSITIVE A (NEGATIVE) 04/12/23 Range/Units 13:27 WBC (4.0-10.5) x10^3/uL RBC (4.1-5.4) x10^6/uL Hgb (12.0-16.0) g/dL Hct (35-47) % MCV (78-100) fL MCH (26-32) pg MCHC (32-36) g/dL RDW (11.5-14.0) % Plt Count (150-450) x10^3/uL MPV (7.5-11.0) fL Gran % (36.0-66.0) % Immature Gran % (Auto) (0.00-0.4) % Nucleat RBC Rel Count (0.00-0.1) % Eos # (Auto) (0-0.5) x10^3/uL Immature Gran # (Auto) (0.00-0.03) x10^3u/L Absolute Lymphs (auto) (1.0-4.6) x10^3/uL Absolute Monos (auto) (0.0-1.3) x10^3/uL Absolute Nucleated RBC (0.00-0.01) x10^3u/L Lymphocytes % (24.0-44.0) % Monocytes % (0.0-12.0) % Eosinophils % (0.00-5.0) % Basophils % (0.0-0.4) % Absolute Granulocytes (1.4-6.9) x10^3/uL Basophils # (0-0.4) x10^3/uL PT (9.4-12.5) SECONDS INR (0.8-3.0) Sodium (137-145) mmol/L Potassium (3.5-5.1) mmol/L Chloride (98-107) mmol/L Carbon Dioxide (22-30) mmol/L Anion Gap (5-15) MEQ/L BUN (7-17) mg/dL Creatinine (0.52-1.04) mg/dL Estimated GFR ML/MIN Glucose (74-106) mg/dL Lactic Acid (0.4-2.0) Calcium (8.4-10.2) mg/dL Magnesium (1.6-2.3) mg/dL Total Bilirubin (0.2-1.3) mg/dL AST (14-36) U/L ALT (0-35) U/L Alkaline Phosphatase (38-126) U/L Troponin I (0.000-0.034) ng/mL NT-Pro-B Natriuret Pep (<300) pg/mL Serum Total Protein (6.3-8.2) g/dL Albumin (3.5-5.0) g/dL Urine Color Yellow (Yellow) Urine Appearance Clear (Clear) Urine pH 6.5 (4.6-8.0) Ur Specific Patterson 1.010 (1.005-1.030) Urine Protein Negative (Negative) Urine Glucose (UA) Negative (Negative) mg/dL Urine Ketones Negative (Negative) Urine Blood Small A (Negative) Urine Nitrite Negative (Negative) Urine Bilirubin Negative (Negative) Urine Urobilinogen 1.0 A (0.2) mg/dL Ur Leukocyte Esterase Negative (Negative) U Hyaline Cast (Auto) NONE SEEN (0-2) /LPF Urine Microscopic RBC 0-2 (0-5) /HPF Urine Microscopic WBC 0-2 (0-5) /HPF Ur Epithelial Cells None Seen (None Seen) /HPF Urine Bacteria None Seen (None Seen) /HPF Urine Culture Reflexed NO (NO) Influenza Type A Ag (NEGATIVE) Influenza Type B Ag (NEGATIVE) RSV (PCR) (NEGATIVE) SARS-CoV-2 (PCR) (NEGATIVE) - Radiology Impressions Radiology Exams & Impressions: Radiology Procedures Category Date Time Status CHEST 1 VIEW (PORTABLE) Stat Exams 04/12/23 12:17 Completed - Other Procedures and Tests Respiratory Therapy 04/12/23 15:58 Respiratory Therapy Consult ONCE 04/12/23 16:22 RT Screen per Nursing Assess ONCE Assessment/Plan (1) Pneumonia Current Visit: Yes Status: Acute Assessment & Plan: - Chest XR 04/12 Portable chest again demonstrates cardiomegaly with large hiatal hernia and intrathoracic stomach. Lungs demonstrates worsening mild/moderate bibasilar infiltrates versus atelectasis. Bony thorax intact again with osteopenia and moderate/advanced degenerative changes - RA 97% - Duonebs, antibiotics started in ER- continue - Mucinex Code(s): J18.9 - PNEUMONIA, UNSPECIFIED ORGANISM (2) RSV infection Current Visit: Yes Status: Acute Assessment & Plan: - Supplemental care Code(s): B33.8 - OTHER SPECIFIED VIRAL DISEASES (3) Morbid obesity with BMI of 40.0-44.9, adult Current Visit: Yes Status: Chronic Assessment & Plan: - advised diet and exercise control Code(s): E66.01 - MORBID (SEVERE) OBESITY DUE TO EXCESS CALORIES; Z68.41 - BODY MASS INDEX [BMI] 40.0-44.9, ADULT (4) Atrial fibrillation Current Visit: Yes Status: Chronic Assessment & Plan: - continue coumadin - managed by PCP OP - PT/INR daily Code(s): I48.91 - UNSPECIFIED ATRIAL FIBRILLATION (5) COVID-19 virus infection Current Visit: No Status: Acute Assessment & Plan: - paxlovid not needed at this time. - RA 97% VTE: coumadin Next of Kin: Kriss Douglas [phone] D/c plan: tomorrow Code status: Full Code(s): U07.1 - COVID-19
[2023-04-12] MEDS: Zithromax 500 MG/ 250 ML NaCl Premix 500 MG/250 ML IVPB IV STA (16:34)
[2023-04-12] MEDS ORDERED: Zanaflex 4 MG PO PRN (16:35)
[2023-04-12] MEDS ORDERED: NON-FORMULARY ITEM (Albuterol Sulfate Mdi*** 8.5 GM Hfa.Aer.Ad) IH SCH (17:00)
[2023-04-12] MEDS: Coumadin 3 MG PO SCH (18:02)
[2023-04-12] MEDS: Zithromax 500 MG/ 250 ML NaCl Premix 500 MG/250 ML IVPB IV SCH (18:02)
[2023-04-12] MEDS: DUONEB 0.5-3 MG/3 ml Neb IH SCH (19:01)
[2023-04-12] MEDS: celeBREX 100 MG PO SCH (21:00)
[2023-04-12] MEDS: ZOCOR 20MG PO SCH (21:01)
[2023-04-12] MEDS: Mucinex 600MG ER Tabs PO SCH (21:01)
[2023-04-12] MEDS ORDERED: ZOCOR 20MG PO SCH (22:00)
[2023-04-12] MEDS ORDERED: NON-FORMULARY ITEM (Budesonide/Formoterol Fumarate [Symbicort 160-4.5 Mcg Inhaler] 10.2 GM IH SCH (22:00)
[2023-04-12] MEDS ORDERED: Robitussin 100 MG/5 ML PO PRN (23:17)
[2023-04-12] MEDS: Tessalon Perles 100 MG PO PRN (23:21)
[2023-04-13] MEDS: DUONEB 0.5-3 MG/3 ml Neb IH PRN (02:38)
[2023-04-13 05:30] LABS: Hematocrit 37.8 % (35-47); Hemoglobin 11.8 g/dL (12.0-16.0); Mean Cell Volume 98.7 fL (78-100); Mean Corpuscular Hemoglobin 30.8 pg (26-32); Mean Corpuscular Hgb Concent. 31.2 g/dL (32-36); Mean Platelet Volume 10.1 fL (7.5-11.0); Platelet Count 165 x10^3/uL (150-450); Red Blood Count 3.83 x10^6/uL (4.1-5.4); Red Cell Distribution Width 13.4 % (11.5-14.0); White Blood Count 4.3 x10^3/uL (4.0-10.5)
[2023-04-13 05:57] LABS: INR 1.8 (0.8-3.0); PROTIME 18.9 SECONDS (9.4-12.5)
[2023-04-13 05:59] LABS: ALBUMIN 3.6 g/dL (3.5-5.0); ANION GAP 6.7 MEQ/L (5-15); BILIRUBIN,TOTAL 0.5 mg/dL (0.2-1.3); Calcium 8.5 mg/dL (8.4-10.2); Creatinine 1 0.55 mg/dL (0.52-1.04); EST GLOMERULAR FILTRATION RATE 89.2 ML/MIN; Potassium 3.5 mmol/L (3.5-5.1); Total Protein 6.3 g/dL (6.3-8.2)
[2023-04-13] MEDS: MEDICATION INTERVENTION MC SCH (07:46)
[2023-04-13] MEDS: Protonix 20MG Tablet PO SCH (09:13)
[2023-04-13] MEDS: ROCEPHIN 1 GM / 100 ML NaCl 1 GM/100 ML IVPB IV SCH (09:13)
[2023-04-13] MEDS: SYNTHROID 150 MCG PO SCH (09:13)
[2023-04-13] MEDS: LASIX 20 MG PO SCH (09:13)
[2023-04-13 13:24] VITALS: BP 123/76; RESP 16; TEMP 97.6
[2023-04-13 13:38] VITALS: PULSE 89
--- NOTE | 2023-04-13 14:20 | PCM.DS ---
Discharge Summary Date of Admission: 04/12/23 15:35 Date of Discharge: 04/13/23 Admitting Physician: OTILIA EATON MD Primary Care Provider: CRISTOBAL,DAREN Allergies Allergies hydrocodone bitartrate [From Vicodin] Allergy (Severe, Verified 04/12/23 12:16) Itching Hospital Summary - Hospital Course Hospital Course: 04/12/23 is a 87 year old female with pmhx of COPD, atrial fibrillation on Coumadin presented in the ER with complaint of cough congestion for the last 2 days with progressive worsening. She has been around her grandchild whom have been ill. She has been evaluated outpatient currently on amoxicillin with no significant relief. Patient reports difficulty breathing because of sinus congestion with wheezing and coughing up clear to yellow sputum moderate in amount and getting short of breath with activity. Denies any fever but generalized weakness fatigue and tiredness. Labs in ER pt is + for RSV and COVID. She is RA at 97%. CXR shows worsening mild/moderate bibasilar infiltrates versus atelectasis. She was started on ceftriaxone, azithromycin, and duonebs in the ER will continue with same plan of care. She denies CP, SOB, abd. pain, N/V/D. 04/13/23 Pt resting in the chair. She did well with PT today. Daughter has been in the room visiting. She confirms pt did well with PT. Pt is ready to d/c and would like neb machine for home. CM to set up. Will continue antibiotics OP. She is 95% RA. She denies any further concerns at this time. - Vitals & Intake/Output Vital Signs: Vital Signs Temperature 97.6 F 04/13/23 12:00 Pulse Rate 89 04/13/23 13:37 Respiratory Rate 16 04/13/23 13:37 Blood Pressure 123/76 04/13/23 12:00 O2 Sat by Pulse Oximetry 96 04/13/23 13:37 Intake & Output: Intake & Output 04/11/23 04/12/23 04/13/23 04/14/23 11:59 11:59 11:59 11:59 Intake Total 1680 Output Total 750 Balance 930 Weight 105 kg - Lab Result Diagrams: 04/13/23 04:58 04/13/23 04:58 Lab Results-Last 24 Hrs: Lab Results-Last 24 Hours 04/12/23 04/12/23 04/12/23 Range/Units 13:27 16:22 20:26 WBC (4.0-10.5) x10^3/uL RBC (4.1-5.4) x10^6/uL Hgb (12.0-16.0) g/dL Hct (35-47) % MCV (78-100) fL MCH (26-32) pg MCHC (32-36) g/dL RDW (11.5-14.0) % Plt Count (150-450) x10^3/uL MPV (7.5-11.0) fL PT (9.4-12.5) SECONDS INR (0.8-3.0) Sodium (137-145) mmol/L Potassium (3.5-5.1) mmol/L Chloride (98-107) mmol/L Carbon Dioxide (22-30) mmol/L Anion Gap (5-15) MEQ/L BUN (7-17) mg/dL Creatinine (0.52-1.04) mg/dL Estimated GFR ML/MIN Glucose (74-106) mg/dL Calcium (8.4-10.2) mg/dL Total Bilirubin (0.2-1.3) mg/dL AST (14-36) U/L ALT (0-35) U/L Alkaline Phosphatase (38-126) U/L Troponin I < 0.012 < 0.012 (0.000-0.034) ng/mL Serum Total Protein (6.3-8.2) g/dL Albumin (3.5-5.0) g/dL Urine Color Yellow (Yellow) Urine Appearance Clear (Clear) Urine pH 6.5 (4.6-8.0) Ur Specific [place] 1.010 (1.005-1.030) Urine Protein Negative (Negative) Urine Glucose (UA) Negative (Negative) mg/dL Urine Ketones Negative (Negative) Urine Blood Small A (Negative) Urine Nitrite Negative (Negative) Urine Bilirubin Negative (Negative) Urine Urobilinogen 1.0 A (0.2) mg/dL Ur Leukocyte Esterase Negative (Negative) U Hyaline Cast (Auto) NONE SEEN (0-2) /LPF Urine Microscopic RBC 0-2 (0-5) /HPF Urine Microscopic WBC 0-2 (0-5) /HPF Ur Epithelial Cells None Seen (None Seen) /HPF Urine Bacteria None Seen (None Seen) /HPF Urine Culture Reflexed NO (NO) 04/13/23 04/13/23 04/13/23 Range/Units 04:58 04:58 04:58 WBC 4.3 (4.0-10.5) x10^3/uL RBC 3.83 L (4.1-5.4) x10^6/uL Hgb 11.8 L (12.0-16.0) g/dL Hct 37.8 (35-47) % MCV 98.7 (78-100) fL MCH 30.8 (26-32) pg MCHC 31.2 L (32-36) g/dL RDW 13.4 (11.5-14.0) % Plt Count 165 (150-450) x10^3/uL MPV 10.1 (7.5-11.0) fL PT 18.9 H (9.4-12.5) SECONDS INR 1.80 (0.8-3.0) Sodium 136 L (137-145) mmol/L Potassium 3.5 (3.5-5.1) mmol/L Chloride 104 (98-107) mmol/L Carbon Dioxide 28 (22-30) mmol/L Anion Gap 6.7 (5-15) MEQ/L BUN 10 (7-17) mg/dL Creatinine 0.55 (0.52-1.04) mg/dL Estimated GFR 89.2 ML/MIN Glucose 114 H (74-106) mg/dL Calcium 8.5 (8.4-10.2) mg/dL Total Bilirubin 0.50 (0.2-1.3) mg/dL AST 18 (14-36) U/L ALT 7 (0-35) U/L Alkaline Phosphatase 64 (38-126) U/L Troponin I (0.000-0.034) ng/mL Serum Total Protein 6.3 (6.3-8.2) g/dL Albumin 3.6 (3.5-5.0) g/dL Urine Color (Yellow) Urine Appearance (Clear) Urine pH (4.6-8.0) Ur Specific [place] (1.005-1.030) Urine Protein (Negative) Urine Glucose (UA) (Negative) mg/dL Urine Ketones (Negative) Urine Blood (Negative) Urine Nitrite (Negative) Urine Bilirubin (Negative) Urine Urobilinogen (0.2) mg/dL Ur Leukocyte Esterase (Negative) U Hyaline Cast (Auto) (0-2) /LPF Urine Microscopic RBC (0-5) /HPF Urine Microscopic WBC (0-5) /HPF Ur Epithelial Cells (None Seen) /HPF Urine Bacteria (None Seen) /HPF Urine Culture Reflexed (NO) - Radiology Exams Ordered Rad Exams-Entire Visit: Radiology Procedures Category Date Time Status CHEST 1 VIEW (PORTABLE) Stat Exams 04/12/23 12:17 Completed - Procedures and Test Procedures and Tests throughout Hospitalization: Therapy Orders & Screens 04/12/23 12:32 Respiratory Therapy Assessment DAILY Comment: 04/12/23 15:58 Respiratory Therapy Consult ONCE Comment: Reason For Exam: 04/12/23 16:22 RT Screen per Nursing Assess ONCE Comment: Protocol Order Physician Instructions: Greater than 3 points order RT Admission Screen Reason For Exam: Triggered on Admission Diagnosis: PNE, COVID19, RSV Diagnosis: PNE, COVID19, RSV Pneumonia: Yes Home O2: Yes Asthma: Yes CHF: Yes Home CPAP/BIPAP: No Home Nebs/MDI: Yes Total Points: 20 ST Screen per Nursing Assess ONCE Comment: Protocol Order Physician Instructions: Greater than [address] Admission Screening Reason For Exam: Triggered on Admission Diagnosis: PNE, COVID19, RSV CVA/Dyshpagia/Aphasia: No Cognitive Deficits: No Dehydration/Nutrition Deficit: No Reflux: No Oral-Motor Difficulties: No Pneumonia: Yes Fdc Resident: No Total Points: 5 04/12/23 16:33 Oxygen NASAL CANNULA 2 lpm Comment: Diagnosis: PNE, COVID19, RSV 04/13/23 10:21 PT Eval & Treat (MD Order) ONCE Reason for Eval:: any home needs, weakness Diagnosis: PNE, COVID19, RSV 04/13/23 19:00 Respiratory MDI BID Comment: Diagnosis: PNE, COVID19, RSV Discharge Exam General Appearance: no apparent distress, alert Neurologic Exam: alert, oriented x 3, cooperative, normal mood/affect, nml cerebellar function, sensation nml, No motor deficits Eye Exam: PERRL, EOMI, eyes nml inspection Ears, Nose, Throat Exam: normal ENT inspection, pharynx normal, moist mucous membranes Neck Exam: normal inspection, non-tender, supple, full range of motion Respiratory Exam: normal breath sounds, lungs clear, No respiratory distress Cardiovascular Exam: regular rate/rhythm, normal heart sounds Gastrointestinal/Abdomen Exam: soft, No tenderness, No mass Pelvic Exam: deferred Rectal Exam: deferred Back Exam: normal inspection, normal range of motion, No CVA tenderness, No vertebral tenderness Extremity Exam: normal inspection, normal range of motion Skin Exam: normal color, warm, dry Final Diagnosis/Problem List - Final Discharge Diagnosis/Problem (1) Pneumonia Current Visit: Yes Status: Acute Code(s): J18.9 - PNEUMONIA, UNSPECIFIED ORGANISM (2) RSV infection Current Visit: Yes Status: Acute Code(s): B33.8 - OTHER SPECIFIED VIRAL DISEASES (3) Morbid obesity with BMI of 40.0-44.9, adult Current Visit: Yes Status: Chronic Code(s): E66.01 - MORBID (SEVERE) OBESITY DUE TO EXCESS CALORIES; Z68.41 - BODY MASS INDEX [BMI] 40.0-44.9, ADULT (4) Atrial fibrillation Current Visit: Yes Status: Chronic Code(s): I48.91 - UNSPECIFIED ATRIAL F IBRILLATION (5) COVID-19 virus infection Current Visit: No Status: Acute Assessment & Plan: (1) Pneumonia Current Visit: Yes Status: Acute Assessment & Plan: - Chest XR 04/12 Portable chest again demonstrates cardiomegaly with large hiatal hernia and intrathoracic stomach. Lungs demonstrates worsening mild/moderate bibasilar infiltrates versus atelectasis. Bony thorax intact again with osteopenia and moderate/advanced degenerative changes - RA 97% - Duonebs, antibiotics started in ER- continue - Mucinex 04/13 - PT eval Code(s): J18.9 - PNEUMONIA, UNSPECIFIED ORGANISM (2) RSV infection Current Visit: Yes Status: Acute Assessment & Plan: - Supplemental care Code(s): B33.8 - OTHER SPECIFIED VIRAL DISEASES (3) Morbid obesity with BMI of 40.0-44.9, adult Current Visit: Yes Status: Chronic Assessment & Plan: - advised diet and exercise control Code(s): E66.01 - MORBID (SEVERE) OBESITY DUE TO EXCESS CALORIES; Z68.41 - BODY MASS INDEX [BMI] 40.0-44.9, ADULT (4) Atrial fibrillation Current Visit: Yes Status: Chronic Assessment & Plan: - continue coumadin - managed by PCP OP - PT/INR daily Code(s): I48.91 - UNSPECIFIED ATRIAL FIBRILLATION (5) COVID-19 virus infection Current Visit: No Status: Acute Assessment & Plan: - paxlovid not needed at this time. - RA 97% Code(s): U07.1 - COVID-19 - Discharge Discharge Date: 04/13/23 Disposition: Home, Self-Care Condition: Stable Prescriptions: Continue Esomeprazole Magnesium [Nexium] 20 mg PO DAILY Levothyroxine Sodium 150 Mcg [Synthroid 150 Mcg] 150 mcg PO DAILY Pravastatin Sodium 80 mg PO HS Furosemide 40 mg [Lasix 40 MG] 20 mg PO DAILY Albuterol Sulfate Mdi [ALBUTEROL/Proair Hfa MDI] 8.5 gm IH QID Budesonide/Formoterol Fumarate [Symbicort 160-4.5 Mcg Inhaler] 10.2 gm IH BID Celecoxib 100 mg [celeBREX 100 MG] 200 mg PO BID #0 Tizanidine HCl 4 mg [Zanaflex 4 MG] 4 mg PO TIDPRN PRN #90 tablet PRN Reason: Pain Warfarin Sodium 3 mg [Coumadin 3 MG] 6 mg PO DAILY Instructions: Pneumonia, Adult (DC), Respiratory Syncytial Virus, Adult (DC), COVID-19 (DC) Additional Instructions: NEB MACHINE HAS BEEN ORDERED THRU [facility]- THEY WILL DELIVER IT TO YOUR DAUGHTER'S HOUSE IN [place] REQUESTED. THEIR PHONE NUMBER IS [phone] IF YOU NEED TO CHECK ON IT Follow up with: DAREN JIAN MD [Primary Care Provider] - 04/19/23 9:15 am ([place] OFFICE) Forms: Discharge Instructions
[2023-04-13] MEDS ORDERED: PATIENT OWN MEDICATION IH SCH (19:00)
[2023-04-13 19:32] VITALS: O2SAT 97
== END 2023-04-13 15:43 | disposition home or self-care (01) ==
LOC: ED 12:15 → MED SURG 15:35
PROVIDERS: ADMIT Internal Medicine; ATTEND Internal Medicine
DX: J18.9 Pneumonia, unspecified organism (principal); B33.8 Other specified viral diseases; E66.01 Morbid (severe) obesity due to excess calories; Z68.41 Body mass index [BMI] 40.0-44.9, adult; I48.91 Unspecified atrial fibrillation; U07.1 COVID-19; J44.9 Chronic obstructive pulmonary disease, unspecified; I50.9 Heart failure, unspecified; Z79.01 Long term (current) use of anticoagulants; Z79.899 Other long term (current) drug therapy; Z20.828 Contact with and (suspected) exposure to other viral communicable diseases
CPT/HCPCS: 0241U; 36000; 36415; 71045; 80053; 81001; 83605; 83735; 83880; 84484; 85025; 85027; 85610; 87040; 93005; 93041; 93268; 94640; 94762; 99285; J0456; J0696; Q3014; A9270-GY; G0378

== ENCOUNTER 2024-06-01 17:48 | Emergency (ER) | payer MEDICARE, OTHER ==
[2024-06-01 18:21] VITALS: TEMP 99.3
[2024-06-01] MEDS ORDERED: DUONEB 0.5-3 MG/3 ml Neb IH ONE (18:34)
--- NOTE | 2024-06-01 18:35 | ERPHSYRPT ---
- History of Present Illness Time Seen by Provider: 06/01/24 18:31 Source: patient, family Exam Limitations: no limitations Patient Subjective Stated Complaint: C/O cough that started yesterday Triage Nursing Assessment: Patient brought back to ER in a W/C. SOB noted with exertion. 02 sats 90% on room air; 02 applied at 2L per N/C and increased to 94%. Non-productive cough noted. Skin is warm to touch. Non-pitting edema present to BLE. Physician History: Patient is 88-year-old female with significant past medical history of atrial fibrillation congestive heart failure hypertension COPD started having some chest congestion cough and shortness of breath with no fever or chills. All her symptoms started yesterday. Patient denies any chest pain or palpitation headache nausea or vomiting. Patient denies any blood in the stool or urine. Patient is on chronic anticoagulation therapy with warfarin. Timing/Duration: yesterday Severity: mild Associated Symptoms: shortness of breath, cough, No chills, No fever Allergies/Adverse Reactions: hydrocodone bitartrate [From Vicodin] Allergy (Severe, Verified 06/01/24 18:21) Itching Home Medications: Esomeprazole Magnesium [Nexium] 20 mg PO DAILY 12/30/12 [History] Levothyroxine Sodium 150 Mcg [Synthroid 150 Mcg] 150 mcg PO DAILY 12/30/12 [History] Albuterol Sulfate Mdi [ALBUTEROL/Proair Hfa MDI] 8.5 gm IH QID 06/03/18 [History] Budesonide/Formoterol Fumarate [Symbicort 160-4.5 Mcg Inhaler] 10.2 gm IH BID 06/03/18 [History] Furosemide 40 mg [Lasix 40 MG] 20 mg PO DAILY 06/03/18 [History] Pravastatin Sodium 80 mg PO HS 06/03/18 [History] Warfarin Sodium 3 mg [Coumadin 3 MG] 6 mg PO DAILY 04/12/23 [History] Hx Tetanus, Diphtheria Vaccination/Date Given: Yes Hx Influenza Vaccination/Date Given: Yes Hx Pneumococcal Vaccination/Date Given: Yes Immunizations Up to Date: Yes Travel Risk - International Travel Have you traveled outside of the country in past 3 weeks: No - Emerging Infectious Disease Are you exhibiting symptoms associated with any current EIDs: Yes Symptoms: Cough: New Onset, Shortness of Breath - Review of Systems Constitutional: No Fever, No Chills Eyes: No Symptoms Ears, Nose, & Throat: No Symptoms Respiratory: Cough, Dyspnea, Dyspnea on Exertion (ALICIA) Cardiac: No Chest Pain, No Edema, No Syncope Abdominal/Gastrointestinal: No Abdominal Pain, No Nausea, No Vomiting, No Diarrhea Genitourinary Symptoms: No Dysuria Musculoskeletal: No Back Pain, No Neck Pain Skin: No Rash Neurological: No Dizziness, No Focal Weakness, No Sensory Changes Psychological: No Symptoms Endocrine: No Symptoms All Other Systems: Reviewed and Negative - Past Medical History Pertinent Past Medical History: Yes Neurological History: Other ENT History: Cataracts Cardiac History: Arrhythmia, Congestive Heart Failure, High Cholesterol, Other Respiratory History: Asthma, COPD Endocrine Medical History: Hypothyroidism Musculoskeletal History: Other GI Medical History: GERD, Gallbladder Disease, Hernia History: No Pertinent History Psycho-Social History: No Pertinent History Female Reproductive Disorders: Fibroids Other Medical History: HX L-SPINE FX 1977; A FIB 2000; PT. USES 2L O2 AT NIGHT BUT NOT DURING DAY - Past Surgical History Past Surgical History: Yes Neuro Surgical History: No Pertinent History Cardiac: No Pertinent History Respiratory: No Pertinent History Gastrointestinal: Appendectomy, Cholecystectomy, Hernia Repair Genitourinary: No Pertinent History Musculoskeletal: Joint Replacement Female Surgical History: Hysterectomy Other Surgical History: Right knee replacement 2009. - Social History Smoking Status: Never smoker Exposure to second hand smoke: No Drug Use: none - Social Determinants of Health Will the patient participate in the screening: Yes Do you worry about a steady place to live?: No Do you have any problems with any of the following?: No known problems In the past 12 months,have you had to go without utilities?: No Transportation Issues: No Has anyone in your support network made you feel unsafe?: No Have you or anyone in your house had to go w/o enough food: No - Nursing Vital Signs Nursing Vital Signs: Initial Vital Signs Temperature 99.3 F 06/01/24 18:05 Pulse Rate 84 06/01/24 18:05 Respiratory Rate 20 06/01/24 18:05 Blood Pressure 119/67 06/01/24 18:05 O2 Sat by Pulse Oximetry 90 L 06/01/24 18:05 Pain Scale Pain Intensity 0 - Physical Exam General Appearance: no apparent distress, alert Eye Exam: PERRL/EOMI, eyes nml inspection Ears, Nose, Throat Exam: normal ENT inspection, TMs normal, pharynx normal, moist mucous membranes Neck Exam: normal inspection, non-tender, supple, full range of motion Respiratory Exam: diminished breath sounds, crackles/rales, rhonchi, wheezing, No respiratory distress Cardiovascular Exam: normal peripheral pulses, irregular Gastrointestinal/Abdomen Exam: soft, normal bowel sounds, No tenderness, No mass Back Exam: normal inspection, normal range of motion, No CVA tenderness, No vertebral tenderness Extremity Exam: normal inspection, normal range of motion, pelvis stable Neurologic Exam: alert, oriented x 3, cooperative, normal mood/affect, nml cerebellar function, nml station & gait, sensation nml, No motor deficits Skin Exam: normal color, warm, dry, No rash Lymphatic Exam: No adenopathy SpO2 Interpretation: borderline oxygenation SpO2: 90 O2 Delivery: Room Air - Course Nursing assessment & vital signs reviewed: Yes - Radiology Exams Chest X-ray Interpretation: Interpreted by me, Reviewed by me, Infiltrates (bibasilar infiltrates) Ordered Tests: Active Orders 24 hr Category Date Time Status CHEST 2 VIEWS (PA AND LAT) Stat Exams 06/01/24 18:27 Taken CBC W DIFF Stat Lab 06/01/24 18:10 Completed CMP Stat Lab 06/01/24 18:10 Completed Respiratory Therapy Assessment DAILY RT 06/01/24 18:49 Active Medication Summary Generic Name Dose Route Start Last Admin Trade Name Freq PRN Reason Stop Dose Admin Ceftriaxone Sodium 1 gm in 100 mls @ 200 mls/hr 06/01/24 19:10 06/01/24 19:20 Rocephin 1 Gm / 100 Ml Nacl IV 06/01/24 19:39 200 mls/hr STAT ONE 200 mls/hr Administration Discontinued Medications Generic Name Dose Route Start Last Admin Trade Name Freq PRN Reason Stop Dose Admin Albuterol/Ipratropium 3 ml 06/01/24 18:26 06/01/24 18:44 Ipratropium/Albuterol Sulfate 3 Ml Ampul.Neb IH 06/01/24 18:27 3 ml STAT ONE Administration Albuterol/Ipratropium Confirm 06/01/24 18:34 Ipratropium/Albuterol Sulfate 3 Ml Ampul.Neb Administered 06/01/24 18:35 Dose 3 ml IH .STK-MED ONE Ceftriaxone Sodium 1,000 mg 06/01/24 19:00 06/01/24 19:09 Ceftriaxone Sodium 1000 Mg Inj Vial IM 06/01/24 19:01 Not Given STAT ONE Methylprednisolone Sodium 0 mg 06/01/24 19:00 06/01/24 19:09 Succinate 125 mg/ Sterile IM 06/01/24 19:01 Not Given Water 2 ml STAT ONE Methylprednisolone Sodium 0 mg 06/01/24 19:10 06/01/24 19:19 Succinate 125 mg/ Sterile IV 06/01/24 19:11 125 mg Water 2 ml STAT ONE Administration Ceftriaxone Sodium Confirm 06/01/24 19:17 Rocephin 1 Gm / 100 Ml Nacl Administered 06/01/24 19:18 Dose 1 gm in 100 mls @ ud IV .STK-MED ONE Methylprednisolone Sodium Succinate Confirm 06/01/24 19:17 Methylprednis Sod Succ 125 Mg/2 Ml Vial Administered 06/01/24 19:18 Dose 125 mg .ROUTE .STK-MED ONE Sterile Water Confirm 06/01/24 19:17 Water For Injection,Sterile 10 Ml Vial Administered 06/01/24 19:18 Dose 10 ml IJ .STK-MED ONE Lab/Rad Data: Laboratory Result Diagrams 06/01/24 18:10 06/01/24 18:10 Laboratory Results 06/01/24 06/01/24 06/01/24 Range/Units 18:30 18:10 18:10 WBC 7.0 (3.98-10.04) x10^3/uL RBC 4.28 (3.93-5.22) x10^6/uL Hgb 13.1 (11.2-15.7) g/dL Hct 40.8 (34.1-44.9) % MCV 95.3 H (79.4-94.8) fL MCH 30.6 (25.6-32.2) pg MCHC 32.1 L (32.2-35.5) g/dL RDW 14.2 (11.7-14.4) % Plt Count 173 L (182-369) x10^3/uL MPV 10.2 (9.4-12.3) fL Gran % 79.6 H (34.0-71.1) % Immature Gran % (Auto) 1.1 H (0.001-0.429) % Nucleat RBC Rel Count 0.0 (0.00-0.2) % Eos # (Auto) 0.03 L (0.04-0.36) x10^3/uL Immature Gran # (Auto) 0.08 H (0.001-0.031) x10^3u/L Absolute Lymphs (auto) 0.72 L (1.18-3.74) x10^3/uL Absolute Monos (auto) 0.56 (0.24-0.86) x10^3/uL Absolute Nucleated RBC 0.00 (0.00-0.012) x10^3u/L Lymphocytes % 10.3 L (19.3-51.7) % Monocytes % 8.0 (4.7-12.5) % Eosinophils % 0.4 L (0.7-5.8) % Basophils % 0.6 (0.1-1.2) % Absolute Granulocytes 5.55 (1.56-6.13) x10^3/uL Basophils # 0.04 (0.01-0.08) x10^3/uL Sodium 140 (135-145) mmol/L Potassium 3.5 (3.5-5.1) mmol/L Chloride 98 (98-107) mmol/L Carbon Dioxide 30 (22-30) mmol/L Anion Gap 14.9 (5-15) MEQ/L BUN 16 (7-17) mg/dL Creatinine 0.74 (0.52-1.04) mg/dL Estimated GFR 78.3 ML/MIN Glucose 122 H (74-106) mg/dL Calcium 8.8 (8.4-10.2) mg/dL Total Bilirubin 1.20 (0.2-1.3) mg/dL AST 29 (14-36) U/L ALT 12 (0-35) U/L Alkaline Phosphatase 64 (38-126) U/L Serum Total Protein 7.4 (6.3-8.2) g/dL Albumin 4.5 (3.5-5.0) g/dL Influenza Type A Ag NEGATIVE (NEGATIVE) Influenza Type B Ag NEGATIVE (NEGATIVE) RSV (PCR) NEGATIVE (NEGATIVE) SARS-CoV-2 (PCR) NEGATIVE (NEGATIVE) - Progress Progress: unchanged Counseled pt/family regarding: lab results, diagnosis, need for follow-up, rad results Medical Desision Making - Independent Historian Additional History obtained from: Family - Diagnostic Testing Diagnostic test were ordered, analyzed, and reviewed by me: Yes Radiological Interpretation: Interpreted by me, Reviewed by me - Risk of complications Minimal Risk: Minimal risk of morbidity - Departure Departure Disposition: Home Clinical Impression: Pneumonia Qualifiers: Pneumonia type: due to unspecified organism Laterality: bilateral Lung location: lower lobe of lung Qualified Code(s): J18.9 - Pneumonia, unspecified organism Condition: Stable Critical Care Time: No Referrals: DAREN JAIN MD [Primary Care Provider] - Follow up/PCP as directed Instructions: Pneumonia, Adult (DC) Additional Instructions: Discharge/Care Plan BIGG HIDALGO was seen on 06/01/24 in the Emergency Room. The patient was counseled regarding Diagnosis,Lab results, Imaging studies, need for follow up and when to return to the Emergency Room. Prescriptions given: Discharge Note I have spoken with the patient and/or caregivers. I have explained the patient's condition, diagnosis and treatment plan based on the information available to me at this time. I have answered the patient's and/or caregiver's questions and addressed any concerns. The patient and/or caregivers have as good understanding of the patient's diagnosis, condition and treatment plan as can be expected at this point. The vital signs have been stable. The patient's condition is stable and appropriate for discharge from the emergency department. The patient will pursue further outpatient evaluation with the primary care physician or other designated or consulting physician as outlined in the discharge instructions. The patient and/or caregivers are agreeable to this plan of care and follow-up instructions have been explained in detail. The patient and/or caregivers have received these instruction. The patient/and or caregivers are aware that any significant change in condition or worsening of symptoms janelle uld prompt an immediate return to this or the closest emergency department or call 911. BIGG HIDALGO was seen on 06/01/24 n the Emergency Room. At that time you were treated for an emergent condition, during your visit Laboratory, Radiology and/or other procedures may have been ordered. It is very important that you follow-up with your Primary Care Physician DAREN JAIN within the next 24-48 hours to review your Emergency Room visit and the final results of testing that was ordered. Some test results such as Urine Cultures, Blood Cultures, and other cultures if ordered will not be finalized for 24-48 hours. If you do not have a Primary Care Provider please call the medical records department at [phone] to obtain a copy of your results or you may sign into our patient portal to obtain these results by visiting us @ [email or web address] and completing the following steps: 1. Click on the Patient Portal link 2. Click the Patient Self Enrollment Link to complete the enrollment form and entering your 3. Once the enrollment form is completed you will receive an email with a temporary ID and password at the email address you provided. 4. Next choose a user name and password. Your user name must be at least 4 characters long and your password must be at least 4 characters long. 5. Choose a security question from the list and provide your answer to the question. If you already have signed into the Health Portal you may access your Health Care Information 19/09 by the following steps: 1. Login to our website @ [email or web address] 2. Enter your original user name and password. FAQS [facility] Portal is an online tool that contains your Lab Results, Radiology Reports, Visit History, Discharge Instructions and Health Summary Lab and Radiology Results will not be available for 72 hours on the portal. The Portal is a secure site, passwords are encryted and URLs are re-written so they cannot be copied and pasted. You and authorized family members are the only ones who can access your Portal. Also there is a timeout feature that protects your information if you leave the Portal page open. If you have technical difficulty please use the Contact Us link on the page this will allow you to submit any questions you have regarding the Portal or you may contact the Medical Record Department at [phone]. Prescriptions: Amoxicillin 500 mg Cap [Amoxil 500 mg] 500 mg PO TID #30 cap Methylprednisolone Packet [Medrol Dosepack] 4 mg PO UD #21 packet Albuterol 2.5 mg/3 ml Neb [Proventil 2.5 mg/3 ml Neb] 2.5 mg IH QID PRN 30 Days #30 amp PRN Reason: Shortness Of Breath/Wheezing
[2024-06-01 18:43] LABS: Absolute Neutrophil Ct (ANC) 5.55 x10^3/uL (1.56-6.13); BASOPHIL % 0.6 % (0.1-1.2); Basophil (Absolute #) 0.04 x10^3/uL (0.01-0.08); Eosinophil % 0.4 % (0.7-5.8); Eosinophil (Absolute #) 0.03 x10^3/uL (0.04-0.36); Hematocrit 40.8 % (34.1-44.9); Hemoglobin 13.1 g/dL (11.2-15.7); IMMATURE GRAN # 0.08 x10^3u/L (0.001-0.031); IMMATURE GRAN % 1.1 % (0.001-0.429); Lymphocyte (Absolute #) 0.72 x10^3/uL (1.18-3.74); Lymphocytes % 10.3 % (19.3-51.7); Mean Cell Volume 95.3 fL (79.4-94.8); Mean Corpuscular Hemoglobin 30.6 pg (25.6-32.2); Mean Corpuscular Hgb Concent. 32.1 g/dL (32.2-35.5); Mean Platelet Volume 10.2 fL (9.4-12.3); Monocyte (Absolute #) 0.56 x10^3/uL (0.24-0.86); Neutrophil % 79.6 % (34.0-71.1); Platelet Count 173 x10^3/uL (182-369); Red Blood Count 4.28 x10^6/uL (3.93-5.22); Red Cell Distribution Width 14.2 % (11.7-14.4)
[2024-06-01] MEDS: DUONEB 0.5-3 MG/3 ml Neb IH ONE (18:44)
[2024-06-01 18:55] LABS: ALBUMIN 4.5 g/dL (3.5-5.0); ANION GAP 14.9 MEQ/L (5-15); BILIRUBIN,TOTAL 1.2 mg/dL (0.2-1.3); Calcium 8.8 mg/dL (8.4-10.2); Creatinine 1 0.74 mg/dL (0.52-1.04); EST GLOMERULAR FILTRATION RATE 78.3 ML/MIN; Potassium 3.5 mmol/L (3.5-5.1); Total Protein 7.4 g/dL (6.3-8.2)
[2024-06-01] MEDS: Rocephin 1000 MG INJ IM ONE (19:09)
[2024-06-01] MEDS: solu-MEDROL 125 MG, Sterile H2O 10 ml 2 ML IM ONE (19:09)
[2024-06-01] MEDS ORDERED: solu-MEDROL ONE (19:17)
[2024-06-01] MEDS ORDERED: Sterile H2O 10 ml IJ ONE (19:17)
[2024-06-01] MEDS ORDERED: ROCEPHIN 1 GM / 100 ML NaCl 1 GM/100 ML IVPB IV ONE (19:17)
[2024-06-01 19:19] LABS: INFLUENZA A NEGATIVE (NEGATIVE); INFLUENZA B NEGATIVE (NEGATIVE); RESPIRATORY SYNCTIAL VIRUS NEGATIVE (NEGATIVE); SARS-CoV-2 Xpert Express NEGATIVE (NEGATIVE)
[2024-06-01] MEDS: solu-MEDROL 125 MG, Sterile H2O 10 ml 2 ML IV ONE (19:19)
[2024-06-01] MEDS: ROCEPHIN 1 GM / 100 ML NaCl 1 GM/100 ML IVPB IV ONE (19:20)
[2024-06-01 19:40] VITALS: RESP 21
[2024-06-01 20:14] VITALS: BP 154/76; PULSE 99; O2SAT 92
--- NOTE | 2024-06-01 20:23 | XRAY ---
Indication: Cough. Short of breath. Comparison: April 12, 2023 PA/lateral chest unchanged again demonstrating cardiomegaly, large hiatal hernia with intrathoracic stomach, and bilateral mid to lower lung infiltrates/atelectasis. No consolidation/large effusion. Bony thorax intact again with osteopenia and degenerative changes. No new cardiopulmonary abnormalities.
== END 2024-06-01 20:22 | disposition home or self-care (01) ==
LOC: ED 17:48
DX: J18.9 Pneumonia, unspecified organism (principal); R05.1 Acute cough; R06.02 Shortness of breath; E78.5 Hyperlipidemia, unspecified; Z79.01 Long term (current) use of anticoagulants; Z79.52 Long term (current) use of systemic steroids; Z79.899 Other long term (current) drug therapy
CPT/HCPCS: 0241U; 36415; 71046; 80053; 85025; 94640; 96365; 96375; 99285; 96374; 99284; J0696; J2919; A9270-GY

== ENCOUNTER 2024-06-03 14:22 | Observation (INO) | payer MEDICARE, OTHER ==
--- NOTE | 2024-06-03 14:30 | ERPHSYRPT ---
- History of Present Illness Time Seen by Provider: 06/03/24 14:29 Source: patient, family Exam Limitations: no limitations Physician History: This is an 88-year-old obese white female patient of Dr. Jain who arrives by private vehicle with a complaint of several day history of dry nonproductive cough and shortness of breath. Patient was prescribed Medrol Dosepak and amoxicillin approximately 2 days ago and discharged to home from our emergency department. Patient arrives to the emergency department today with room air oxygen saturation level 88%. Patient usually wears oxygen only at night. Patient has a history of COPD and asthma, gastroesophageal reflux disease, hypothyroidism, hyperlipidemia, atrial fibrillation and CHF. Patient is on Coumadin. Patient has noticed leg edema as well. She denies chest pain. She has no abdominal pain. She has no fevers Timing/Duration: day(s), worse (Last several days) Severity: moderate Associated Symptoms: shortness of breath, cough, No nausea, No vomiting, No abdominal pain, No chills, No chest pain, No fever Allergies/Adverse Reactions: hydrocodone bitartrate [From Vicodin] Allergy (Severe, Verified 06/03/24 14:33) Itching Home Medications: Esomeprazole Magnesium [Nexium] 20 mg PO DAILY 12/30/12 [History] Levothyroxine Sodium 150 Mcg [Synthroid 150 Mcg] 150 mcg PO DAILY 12/30/12 [History] Albuterol Sulfate Mdi [ALBUTEROL/Proair Hfa MDI] 8.5 gm IH QID 06/03/18 [History] Budesonide/Formoterol Fumarate [Symbicort 160-4.5 Mcg Inhaler] 10.2 gm IH BID 06/03/18 [History] Furosemide 40 mg [Lasix 40 MG] 20 mg PO DAILY 06/03/18 [History] Pravastatin Sodium 80 mg PO HS 06/03/18 [History] Warfarin Sodium 3 mg [Coumadin 3 MG] 6 mg PO DAILY 04/12/23 [History] Hx Tetanus, Diphtheria Vaccination/Date Given: Yes Hx Influenza Vaccination/Date Given: Yes Hx Pneumococcal Vaccination/Date Given: Yes Travel Risk - International Travel Have you traveled outside of the country in past 3 weeks: No - Emerging Infectious Disease Are you exhibiting symptoms associated with any current EIDs: Yes Symptoms: Cough: New Onset, Shortness of Breath - Review of Systems Constitutional: No Symptoms Eyes: No Symptoms Ears, Nose, & Throat: No Symptoms Respiratory: Cough, Dyspnea Cardiac: No Symptoms, No Chest Pain Abdominal/Gastrointestinal: No Symptoms Genitourinary Symptoms: No Symptoms Musculoskeletal: No Symptoms Skin: No Symptoms Neurological: No Symptoms Psychological: No Symptoms Endocrine: No Symptoms Hematologic/Lymphatic: No Symptoms Immunological/Allergic: No Symptoms All Other Systems: Reviewed and Negative - Past Medical History Pertinent Past Medical History: Yes Neurological History: Other ENT History: Cataracts Cardiac History: Arrhythmia, Congestive Heart Failure, High Cholesterol, Other Respiratory History: Asthma, COPD Endocrine Medical History: Hypothyroidism Musculoskeletal History: Other GI Medical History: GERD, Gallbladder Disease, Hernia History: No Pertinent History Psycho-Social History: No Pertinent History Female Reproductive Disorders: Fibroids Other Medical History: HX L-SPINE FX 1977; A FIB 2000; PT. USES 2L O2 AT NIGHT BUT NOT DURING DAY - Past Surgical History Past Surgical History: Yes Neuro Surgical History: No Pertinent History Cardiac: No Pertinent History Respiratory: No Pertinent History Gastrointestinal: Appendectomy, Cholecystectomy, Hernia Repair Genitourinary: No Pertinent History Musculoskeletal: Joint Replacement Female Surgical History: Hysterectomy Other Surgical History: Right knee replacement 2009. - Social History Smoking Status: Never smoker Exposure to second hand smoke: No Drug Use: none - Social Determinants of Health Will the patient participate in the screening: Yes Do you worry about a steady place to live?: No In the past 12 months,have you had to go without utilities?: No Transportation Issues: No Has anyone in your support network made you feel unsafe?: No Have you or anyone in your house had to go w/o enough food: No - Nursing Vital Signs Nursing Vital Signs: Initial Vital Signs Temperature 97.7 F 06/03/24 14:25 Respiratory Rate 32 H 06/03/24 14:25 O2 Sat by Pulse Oximetry 88 L 06/03/24 14:25 Pain Scale Pain Intensity 0 - Physical Exam General Appearance: no apparent distress, alert, anxiety, cachetic Eye Exam: PERRL/EOMI, eyes nml inspection Ears, Nose, Throat Exam: normal ENT inspection, moist mucous membranes Neck Exam: normal inspection, non-tender, supple, full range of motion Respiratory Exam: normal breath sounds, lungs clear, airway intact, No chest tenderness, No respiratory distress Cardiovascular Exam: regular rate/rhythm, normal heart sounds, normal peripheral pulses Gastrointestinal/Abdomen Exam: soft, normal bowel sounds, No tenderness Pelvic Exam: not done Rectal Exam: not done Back Exam: normal inspection, normal range of motion, No CVA tenderness, No vertebral tenderness Extremity Exam: normal range of motion, pelvis stable, pedal edema (Mild bilateral feet and ankle edema) Neurologic Exam: alert, oriented x 3, cooperative, partner manager II-XII nml as tested, nml cerebellar function, nml station & gait, sensation nml Skin Exam: normal color, warm, dry Lymphatic Exam: No adenopathy SpO2 Interpretation: normal O2 Delivery: Room Air - Course Nursing assessment & vital signs reviewed: Yes EKG Interpreted by Me: RATE (84), A-fib, Left [place] Deviation (Borderline), NORMAL INTERVALS, NORMAL QRS, Other (No acute ischemic changes. QTc is 422) Ordered Tests: Active Orders 24 hr Category Date Time Status Ict Account Manager STAT Care 06/03/24 15:21 Active EKG-ER Only STAT Care 06/03/24 15:20 Active IV Insertion STAT Care 06/03/24 15:20 Active Oxygen-ED Only Nasal Cannula 2 lpm Care 06/03/24 14:44 Active Pulse Oximetry (ED) STAT Care 06/03/24 15:20 Active CHEST 1 VIEW (PORTABLE) Stat Exams 06/03/24 15:21 Completed BLOOD CULTURE Stat Lab 06/03/24 15:41 Ordered CBC W DIFF Stat Lab 06/03/24 15:31 Completed CMP Stat Lab 06/03/24 15:31 Completed Lactic Acid Stat Lab 06/03/24 15:55 Completed MAGNESIUM Stat Lab 06/03/24 15:31 Completed NT PRO BNPII Stat Lab 06/03/24 15:31 Completed PROTIME WITH INR Stat Lab 06/03/24 15:31 Completed TROPONIN Q4H Lab 06/03/24 15:31 Completed TROPONIN Q4H Lab 06/03/24 19:30 Ordered TROPONIN Q4H Lab 06/03/24 23:30 Ordered Medication Summary Discontinued Medications Generic Name Dose Route Start Last Admin Trade Name Freq PRN Reason Stop Dose Admin Methylprednisolone Sodium 0 mg 06/03/24 16:58 06/03/24 17:07 Succinate 125 mg/ Sterile IV 06/03/24 16:59 125 mg Water 2 ml STAT ONE Administration Ceftriaxone Sodium 1 gm in 100 mls @ 200 mls/hr 06/03/24 16:57 06/03/24 17:51 Rocephin 1 Gm / 100 Ml Nacl IV 06/03/24 17:26 Infused STAT ONE Infusion Ceftriaxone Sodium Confirm 06/03/24 17:06 Rocephin 1 Gm / 100 Ml Nacl Administered 06/03/24 17:07 Dose 1 gm in 100 mls @ ud IV .STK-MED ONE Methylprednisolone Sodium Succinate Confirm 06/03/24 17:05 Methylprednis Sod Succ 125 Mg/2 Ml Vial Administered 06/03/24 17:06 Dose 125 mg .ROUTE .STK-MED ONE Sterile Water Confirm 06/03/24 17:05 Water For Injection,Sterile 10 Ml Vial Administered 06/03/24 17:06 Dose 10 ml IJ .STK-MED ONE Lab/Rad Data: Laboratory Result Diagrams 06/03/24 15:31 06/03/24 15:31 Laboratory Results 06/03/24 06/03/24 06/03/24 Range/Units 15:55 15:42 15:31 WBC (3.98-10.04) x10^3/uL RBC (3.93-5.22) x10^6/uL Hgb (11.2-15.7) g/dL Hct (34.1-44.9) % MCV (79.4-94.8) fL MCH (25.6-32.2) pg MCHC (32.2-35.5) g/dL RDW (11.7-14.4) % Plt Count (182-369) x10^3/uL MPV (9.4-12.3) fL Gran % (34.0-71.1) % Immature Gran % (Auto) (0.001-0.429) % Nucleat RBC Rel Count (0.00-0.2) % Eos # (Auto) (0.04-0.36) x10^3/uL Immature Gran # (Auto) (0.001-0.031) x10^3u/L Absolute Lymphs (auto) (1.18-3.74) x10^3/uL Absolute Monos (auto) (0.24-0.86) x10^3/uL Absolute Nucleated RBC (0.00-0.012) x10^3u/L Lymphocytes % (19.3-51.7) % Monocytes % (4.7-12.5) % Eosinophils % (0.7-5.8) % Basophils % (0.1-1.2) % Absolute Granulocytes (1.56-6.13) x10^3/uL Basophils # (0.01-0.08) x10^3/uL PT (9.4-12.5) SECONDS INR (0.8-3.0) Sodium (135-145) mmol/L Potassium (3.5-5.1) mmol/L Chloride (98-107) mmol/L Carbon Dioxide (22-30) mmol/L Anion Gap (5-15) MEQ/L BUN (7-17) mg/dL Creatinine (0.52-1.04) mg/dL Estimated GFR ML/MIN Glucose (74-106) mg/dL Lactic Acid 2.0 (0.4-2.0) Calcium (8.4-10.2) mg/dL Magnesium (1.6-2.3) mg/dL Total Bilirubin (0.2-1.3) mg/dL AST (14-36) U/L ALT (0-35) U/L Alkaline Phosphatase (38-126) U/L Troponin I < 0.012 (0.000-0.033) ng/mL NT-Pro-B Natriuret Pep (<300) pg/mL Serum Total Protein (6.3-8.2) g/dL Albumin (3.5-5.0) g/dL Influenza Type A Ag NEGATIVE (NEGATIVE) Influenza Type B Ag NEGATIVE (NEGATIVE) RSV (PCR) NEGATIVE (NEGATIVE) SARS-CoV-2 (PCR) NEGATIVE (NEGATIVE) Slides for Path Review 06/03/24 06/03/24 06/03/24 Range/Units 15:31 15:31 15:31 WBC 8.1 (3.98-10.04) x10^3/uL RBC 4.25 (3.93-5.22) x10^6/uL Hgb 13.1 (11.2-15.7) g/dL Hct 40.6 (34.1-44.9) % MCV 95.5 H (79.4-94.8) fL MCH 30.8 (25.6-32.2) pg MCHC 32.3 (32.2-35.5) g/dL RDW 14.2 (11.7-14.4) % Plt Count 172 L (182-369) x10^3/uL MPV 10.2 (9.4-12.3) fL Gran % 88.2 H (34.0-71.1) % Immature Gran % (Auto) 0.7 H (0.001-0.429) % Nucleat RBC Rel Count 0.0 (0.00-0.2) % Eos # (Auto) 0 L (0.04-0.36) x10^3/uL Immature Gran # (Auto) 0.06 H (0.001-0.031) x10^3u/L Absolute Lymphs (auto) 0.41 L (1.18-3.74) x10^3/uL Absolute Monos (auto) 0.47 (0.24-0.86) x10^3/uL Absolute Nucleated RBC 0.00 (0.00-0.012) x10^3u/L Lymphocytes % 5.1 L (19.3-51.7) % Monocytes % 5.8 (4.7-12.5) % Eosinophils % 0.0 L (0.7-5.8) % Basophils % 0.2 (0.1-1.2) % Absolute Granulocytes 7.12 H (1.56-6.13) x10^3/uL Basophils # 0.02 (0.01-0.08) x10^3/uL PT 21.9 H (9.4-12.5) SECONDS INR 2.11 (0.8-3.0) Sodium 138 (135-145) mmol/L Potassium 3.9 (3.5-5.1) mmol/L Chloride 100 (98-107) mmol/L Carbon Dioxide 30 (22-30) mmol/L Anion Gap 11.7 (5-15) MEQ/L BUN 18 H (7-17) mg/dL Creatinine 0.64 (0.52-1.04) mg/dL Estimated GFR 85.5 ML/MIN Glucose 110 H (74-106) mg/dL Lactic Acid (0.4-2.0) Calcium 8.8 (8.4-10.2) mg/dL Magnesium 1.8 (1.6-2.3) mg/dL Total Bilirubin 0.90 (0.2-1.3) mg/dL AST 29 (14-36) U/L ALT 15 (0-35) U/L Alkaline Phosphatase 65 (38-126) U/L Troponin I (0.000-0.033) ng/mL NT-Pro-B Natriuret Pep 789 (<300) pg/mL Serum Total Protein 6.9 (6.3-8.2) g/dL Albumin 4.2 (3.5-5.0) g/dL Influenza Type A Ag (NEGATIVE) Influenza Type B Ag (NEGATIVE) RSV (PCR) (NEGATIVE) SARS-CoV-2 (PCR) (NEGATIVE) Slides for Path Review YES - Progress Progress: improved Progress Note: 06/03/24 17:02 My medical decision making and the assignment of moderate complexity to this patient's medical issue today is based on review of the patient's past medical history, review the patient's medication list, review the patient drug allergy list, history present illness and physical findings on examination. The workup today includes placement of intravenous line, CBC, CMP, twelve-lead EKG, BNP, troponin level, magnesium level, viral swabs, chest x-ray. Differential diagnosis includes but is not limited to viral illness, pneumonia, CHF exacerbation, COPD exacerbation, arrhythmia, myocardial infarction, anemia and electrolyte abnormalities 06/03/24 17:03 I interpreted the patient's laboratory data results. Based on the laboratory data results, there are no acute, emergent medical issues. The chest x-ray final report was interpreted by the radiologist and I reviewed the impression. The impression states cardiomegaly, large hiatal hernia with intrathoracic stomach, bilateral mid to lower lung infiltrate. No consolidation or large effusion present 06/03/24 18:06 I discussed the workup results with the patient and her daughter. Ultimately, the patient has decided to be placed in observation. I spoke with the telehospitalist, Dr. Lopez. I reviewed the patient presenting complaint, workup results and the patient's response to our intervention. The patient failed outpatient therapy. We will place her observation in the hospital. Will provide her with nebulizer treatments, intravenous antibiotics of Rocephin and azithromycin as well as intravenous steroids. Counseled pt/family regarding: lab results, diagnosis, need for follow-up, rad results Medical Desision Making - Independent Historian Additional History obtained from: Family - Diagnostic Testing Diagnostic test were ordered, analyzed, and reviewed by me: Yes Radiological Interpretation: Reviewed by me, Teleradiologist Report - Risk of complications The pt has a high risk of morbidity or mortality based on: Decision regarding hospitilization or escalation of hosp level of care - Departure Departure Disposition: Observation Clinical Impression: Hypoxia, Bilateral pneumonia Condition: Fair Critical Care Time: Yes Critical Care Time(excluding separately billable procedures): Critical 30-74 mins (45) Referrals: DAREN JAIN MD [Primary Care Provider] - Follow up/PCP as directed
[2024-06-03 16:03] LABS: Absolute Neutrophil Ct (ANC) 7.12 x10^3/uL (1.56-6.13); BASOPHIL % 0.2 % (0.1-1.2); Basophil (Absolute #) 0.02 x10^3/uL (0.01-0.08); Eosinophil (Absolute #) 0 x10^3/uL (0.04-0.36); Hematocrit 40.6 % (34.1-44.9); Hemoglobin 13.1 g/dL (11.2-15.7); IMMATURE GRAN # 0.06 x10^3u/L (0.001-0.031); IMMATURE GRAN % 0.7 % (0.001-0.429); Lymphocyte (Absolute #) 0.41 x10^3/uL (1.18-3.74); Lymphocytes % 5.1 % (19.3-51.7); Mean Cell Volume 95.5 fL (79.4-94.8); Mean Corpuscular Hemoglobin 30.8 pg (25.6-32.2); Mean Corpuscular Hgb Concent. 32.3 g/dL (32.2-35.5); Mean Platelet Volume 10.2 fL (9.4-12.3); Monocyte (Absolute #) 0.47 x10^3/uL (0.24-0.86); Monocytes % 5.8 % (4.7-12.5); Neutrophil % 88.2 % (34.0-71.1); Platelet Count 172 x10^3/uL (182-369); Red Blood Count 4.25 x10^6/uL (3.93-5.22); Red Cell Distribution Width 14.2 % (11.7-14.4); White Blood Count 8.1 x10^3/uL (3.98-10.04)
[2024-06-03 16:15] LABS: INR 2.11 (0.8-3.0); PROTIME 21.9 SECONDS (9.4-12.5)
[2024-06-03 16:25] LABS: ALBUMIN 4.2 g/dL (3.5-5.0); ANION GAP 11.7 MEQ/L (5-15); BILIRUBIN,TOTAL 0.9 mg/dL (0.2-1.3); Calcium 8.8 mg/dL (8.4-10.2); Creatinine 1 0.64 mg/dL (0.52-1.04); EST GLOMERULAR FILTRATION RATE 85.5 ML/MIN; MAGNESIUM 1.8 mg/dL (1.6-2.3); Potassium 3.9 mmol/L (3.5-5.1); Total Protein 6.9 g/dL (6.3-8.2)
--- NOTE | 2024-06-03 16:39 | XRAY ---
Indication: Short of breath. Cough. Comparison: June 01, 2024 Portable chest unchanged again demonstrating cardiomegaly, large hiatal hernia with intrathoracic stomach, and bilateral mid-lower lung infiltrates/atelectasis. No consolidation/large effusion or new cardiopulmonary abnormalities.
[2024-06-03 16:43] LABS: INFLUENZA A NEGATIVE (NEGATIVE); INFLUENZA B NEGATIVE (NEGATIVE); RESPIRATORY SYNCTIAL VIRUS NEGATIVE (NEGATIVE); SARS-CoV-2 Xpert Express NEGATIVE (NEGATIVE)
[2024-06-03] MEDS ORDERED: solu-MEDROL ONE (17:05)
[2024-06-03] MEDS ORDERED: Sterile H2O 10 ml IJ ONE (17:05)
[2024-06-03] MEDS ORDERED: ROCEPHIN 1 GM / 100 ML NaCl 1 GM/100 ML IVPB IV ONE (17:06)
[2024-06-03] MEDS: solu-MEDROL 125 MG, Sterile H2O 10 ml 2 ML IV ONE (17:07)
[2024-06-03] MEDS: ROCEPHIN 1 GM / 100 ML NaCl 1 GM/100 ML IVPB IV ONE (17:08)
[2024-06-03 17:10] LABS: Slide Review 1 YES
[2024-06-03] MEDS ORDERED: Medrol Dosepack PO ONE (19:54)
[2024-06-03] MEDS ORDERED: TYLENOL 325 MG PO PRN (19:59)
[2024-06-03] MEDS ORDERED: Zofran 4 MG/2 ML VIAL IV PRN (19:59)
[2024-06-03] MEDS ORDERED: Medrol Dosepack PO SCH (20:45)
--- NOTE | 2024-06-03 20:56 | PCM.HP ---
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 Patient was prescribed Medrol Dosepak and amoxicillin approximately 2 days ago and discharged to home from our emergency department. The patient arrived to the emergency department today with room air oxygen saturation level 88%. Patient has left leg edema but this is chronic and unchanged. She denies chest pain, abdominal pain, fevers, and hemoptysis. The patient does not report progressive, frequent choking episodes. The patient's daughter is at bedside during my assessment. - Review of Systems Constitutional: No Symptoms Eyes: No Symptoms Ears, Nose, & Throat: No Symptoms Respiratory: Cough, Short Of Breath Cardiac: No Symptoms Abdominal/Gastrointestinal: No Symptoms Genitourinary Symptoms: No Symptoms Musculoskeletal: No Symptoms Skin: No Symptoms Neurological: No Symptoms Psychological: No Symptoms Endocrine: No Symptoms Hematologic/Lymphatic: No Symptoms Immunological/Allergic: No Symptoms All Other Systems: Reviewed and Negative Medications & Allergies Home Medications: Home Medication List Esomeprazole Magnesium [Nexium] 20 mg PO DAILY 12/30/12 [History Confirmed 06/03/24] Levothyroxine Sodium 150 Mcg [Synthroid 150 Mcg] 150 mcg PO DAILY 12/30/12 [History Confirmed 06/03/24] Albuterol Sulfate Mdi [ALBUTEROL/Proair Hfa MDI] 8.5 gm IH QID 06/03/18 [History Confirmed 06/03/24] Budesonide/Formoterol Fumarate [Symbicort 160-4.5 Mcg Inhaler] 10.2 gm IH BID 06/03/18 [History Confirmed 06/03/24] Furosemide 40 mg [Lasix 40 MG] 20 mg PO DAILY 06/03/18 [History Confirmed 06/03/24] Pravastatin Sodium 80 mg PO HS 06/03/18 [History Confirmed 06/03/24] Celecoxib 100 mg [celeBREX 100 MG] 200 mg PO BID #0 08/03/22 [Rx Confirmed 06/03/24] Warfarin Sodium 3 mg [Coumadin 3 MG] 6 mg PO DAILY 04/12/23 [History Confirmed 06/03/24] Albuterol 2.5 mg/3 ml Neb [Proventil 2.5 mg/3 ml Neb] 2.5 mg IH QID PRN 30 Days #30 amp 06/01/24 [Rx Confirmed 06/03/24] Amoxicillin 500 mg Cap [Amoxil 500 mg] 500 mg PO TID #30 cap 06/01/24 [Rx Confirmed 06/03/24] Methylprednisolone Packet [Medrol Dosepack] 4 mg PO UD #21 packet 06/01/24 [Rx Confirmed 06/03/24] Allergies/Adverse Reactions: Allergies Allergy/AdvReac Type Severity Reaction Status Date / Time hydrocodone bitartrate Allergy Severe Itching Verified 06/03/24 14:33 [From Vicodin] - Past Medical History Past Medical History: Yes Neurological History: Other ENT History: Cataracts Cardiac History: Arrhythmia, Congestive Heart Failure, High Cholesterol, Other Respiratory History: Asthma, COPD Endocrine Medical History: Hypothyroidism Musculoskelatal History: Other GI Medical History: GERD, Gallbladder Disease, Hernia History: No Pertinent History Pyscho-Social History: No Pertinent History Reproductive Disorders: Fibroids Comment: HX L-SPINE FX 1977; A FIB 2000; PT. USES 2L O2 AT NIGHT BUT NOT DURING DAY - Past Surgical History Past Surgical History: Yes Neuro Surgical History: No Pertinent History Cardiac History: No Pertinent History Respiratory Surgery: No Pertinent History GI Surgical History: Appendectomy, Cholecystectomy, Hernia Repair Genitourinary Surgical Hx: No Pertinent History Musculskeletal Surgical Hx: Joint Replacement Female Surgical History: Hysterectomy Other Surgical History: Right knee replacement 2010. Goider removed-2013 Significant Family History: no pertinent family hx - Social History Smoking Status: Never smoker Exposure to second hand smoke: No Alcohol: None Drug Use: none - Social Determinants of Health Will the patient participate in the screening: Yes Do you worry about a steady place to live?: No Do you have any problems with any of the following?: No known problems In the past 12 months,have you had to go without utilities?: No Have you or anyone in your house had to go without enough: No Transportation Issues: No Has anyone in your support network made you feel unsafe?: No Does the patient want assistance with any of the above?: No - Physical Exam Vital Signs: Vital Signs - 24 hr Temp Pulse Resp BP BP Pulse Ox 06/03/24 20:00 97.3 F 80 20 142/90 93 L 06/03/24 19:00 161/99 06/03/24 18:30 74 19 170/97 97 06/03/24 18:00 78 19 162/109 98 06/03/24 17:30 83 24 161/96 98 06/03/24 17:00 81 21 151/107 98 06/03/24 16:35 80 24 161/79 96 06/03/24 16:01 89 20 161/96 96 06/03/24 15:30 83 23 152/102 96 06/03/24 15:20 98 06/03/24 15:01 88 23 133/73 97 06/03/24 14:30 92 H 19 163/87 96 06/03/24 14:25 97.7 F 32 H 88 L General Appearance: no apparent distress, alert Neurologic Exam: alert, oriented x 3, cooperative, sanitary chemist II-XII nml as tested, normal mood/affect, nml cerebellar function Eye Exam: PERRL/EOMI, eyes nml inspection Ears, Nose, Throat Exam: normal ENT inspection Neck Exam: normal inspection, non-tender, supple, full range of motion Respiratory Exam: airway intact, diminished breath sounds (at bases), rhonchi (at bases) Cardiovascular Exam: regular rate/rhythm, normal heart sounds Gastrointestinal/Abdomen Exam: soft, normal bowel sounds Back Exam: normal range of motion Extremity Exam: normal range of motion, pedal edema, swelling (left > right (chronic)) Skin Exam: normal color Results - Labs Lab/Micro Results: Lab Results-Last 24 Hours 06/03/24 06/03/24 06/03/24 Range/Units 15:31 15:31 15:31 WBC 8.1 (3.98-10.04) x10^3/uL RBC 4.25 (3.93-5.22) x10^6/uL Hgb 13.1 (11.2-15.7) g/dL Hct 40.6 (34.1-44.9) % MCV 95.5 H (79.4-94.8) fL MCH 30.8 (25.6-32.2) pg MCHC 32.3 (32.2-35.5) g/dL RDW 14.2 (11.7-14.4) % Plt Count 172 L (182-369) x10^3/uL MPV 10.2 (9.4-12.3) fL Gran % 88.2 H (34.0-71.1) % Immature Gran % (Auto) 0.7 H (0.001-0.429) % Nucleat RBC Rel Count 0.0 (0.00-0.2) % Eos # (Auto) 0 L (0.04-0.36) x10^3/uL Immature Gran # (Auto) 0.06 H (0.001-0.031) x10^3u/L Absolute Lymphs (auto) 0.41 L (1.18-3.74) x10^3/uL Absolute Monos (auto) 0.47 (0.24-0.86) x10^3/uL Absolute Nucleated RBC 0.00 (0.00-0.012) x10^3u/L Lymphocytes % 5.1 L (19.3-51.7) % Monocytes % 5.8 (4.7-12.5) % Eosinophils % 0.0 L (0.7-5.8) % Basophils % 0.2 (0.1-1.2) % Absolute Granulocytes 7.12 H (1.56-6.13) x10^3/uL Basophils # 0.02 (0.01-0.08) x10^3/uL PT 21.9 H (9.4-12.5) SECONDS INR 2.11 (0.8-3.0) Sodium 138 (135-145) mmol/L Potassium 3.9 (3.5-5.1) mmol/L Chloride 100 (98-107) mmol/L Carbon Dioxide 30 (22-30) mmol/L Anion Gap 11.7 (5-15) MEQ/L BUN 18 H (7-17) mg/dL Creatinine 0.64 (0.52-1.04) mg/dL Estimated GFR 85.5 ML/MIN Glucose 110 H (74-106) mg/dL Lactic Acid (0.4-2.0) Calcium 8.8 (8.4-10.2) mg/dL Magnesium 1.8 (1.6-2.3) mg/dL Total Bilirubin 0.90 (0.2-1.3) mg/dL AST 29 (14-36) U/L ALT 15 (0-35) U/L Alkaline Phosphatase 65 (38-126) U/L Troponin I (0.000-0.033) ng/mL NT-Pro-B Natriuret Pep 789 (<300) pg/mL Serum Total Protein 6.9 (6.3-8.2) g/dL Albumin 4.2 (3.5-5.0) g/dL Influenza Type A Ag (NEGATIVE) Influenza Type B Ag (NEGATIVE) RSV (PCR) (NEGATIVE) SARS-CoV-2 (PCR) (NEGATIVE) Slides for Path Review YES 06/03/24 06/03/24 06/03/24 Range/Units 15:31 15:42 15:55 WBC (3.98-10.04) x10^3/uL RBC (3.93-5.22) x10^6/uL Hgb (11.2-15.7) g/dL Hct (34.1-44.9) % MCV (79.4-94.8) fL MCH (25.6-32.2) pg MCHC (32.2-35.5) g/dL RDW (11.7-14.4) % Plt Count (182-369) x10^3/uL MPV (9.4-12.3) fL Gran % (34.0-71.1) % Immature Gran % (Auto) (0.001-0.429) % Nucleat RBC Rel Count (0.00-0.2) % Eos # (Auto) (0.04-0.36) x10^3/uL Immature Gran # (Auto) (0.001-0.031) x10^3u/L Absolute Lymphs (auto) (1.18-3.74) x10^3/uL Absolute Monos (auto) (0.24-0.86) x10^3/uL Absolute Nucleated RBC (0.00-0.012) x10^3u/L Lymphocytes % (19.3-51.7) % Monocytes % (4.7-12.5) % Eosinophils % (0.7-5.8) % Basophils % (0.1-1.2) % Absolute Granulocytes (1.56-6.13) x10^3/uL Basophils # (0.01-0.08) x10^3/uL PT (9.4-12.5) SECONDS INR (0.8-3.0) Sodium (135-145) mmol/L Potassium (3.5-5.1) mmol/L Chloride (98-107) mmol/L Carbon Dioxide (22-30) mmol/L Anion Gap (5-15) MEQ/L BUN (7-17) mg/dL Creatinine (0.52-1.04) mg/dL Estimated GFR ML/MIN Glucose (74-106) mg/dL Lactic Acid 2.0 (0.4-2.0) Calcium (8.4-10.2) mg/dL Magnesium (1.6-2.3) mg/dL Total Bilirubin (0.2-1.3) mg/dL AST (14-36) U/L ALT (0-35) U/L Alkaline Phosphatase (38-126) U/L Troponin I < 0.012 (0.000-0.033) ng/mL NT-Pro-B Natriuret Pep (<300) pg/mL Serum Total Protein (6.3-8.2) g/dL Albumin (3.5-5.0) g/dL Influenza Type A Ag NEGATIVE (NEGATIVE) Influenza Type B Ag NEGATIVE (NEGATIVE) RSV (PCR) NEGATIVE (NEGATIVE) SARS-CoV-2 (PCR) NEGATIVE (NEGATIVE) Slides for Path Review 06/03/24 Range/Units 19:10 WBC (3.98-10.04) x10^3/uL RBC (3.93-5.22) x10^6/uL Hgb (11.2-15.7) g/dL Hct (34.1-44.9) % MCV (79.4-94.8) fL MCH (25.6-32.2) pg MCHC (32.2-35.5) g/dL RDW (11.7-14.4) % Plt Count (182-369) x10^3/uL MPV (9.4-12.3) fL Gran % (34.0-71.1) % Immature Gran % (Auto) (0.001-0.429) % Nucleat RBC Rel Count (0.00-0.2) % Eos # (Auto) (0.04-0.36) x10^3/uL Immature Gran # (Auto) (0.001-0.031) x10^3u/L Absolute Lymphs (auto) (1.18-3.74) x10^3/uL Absolute Monos (auto) (0.24-0.86) x10^3/uL Absolute Nucleated RBC (0.00-0.012) x10^3u/L Lymphocytes % (19.3-51.7) % Monocytes % (4.7-12.5) % Eosinophils % (0.7-5.8) % Basophils % (0.1-1.2) % Absolute Granulocytes (1.56-6.13) x10^3/uL Basophils # (0.01-0.08) x10^3/uL PT (9.4-12.5) SECONDS INR (0.8-3.0) Sodium (135-145) mmol/L Potassium (3.5-5.1) mmol/L Chloride (98-107) mmol/L Carbon Dioxide (22-30) mmol/L Anion Gap (5-15) MEQ/L BUN (7-17) mg/dL Creatinine (0.52-1.04) mg/dL Estimated GFR ML/MIN Glucose (74-106) mg/dL Lactic Acid (0.4-2.0) Calcium (8.4-10.2) mg/dL Magnesium (1.6-2.3) mg/dL Total Bilirubin (0.2-1.3) mg/dL AST (14-36) U/L ALT (0-35) U/L Alkaline Phosphatase (38-126) U/L Troponin I < 0.012 (0.000-0.033) ng/mL NT-Pro-B Natriuret Pep (<300) pg/mL Serum Total Protein (6.3-8.2) g/dL Albumin (3.5-5.0) g/dL Influenza Type A Ag (NEGATIVE) Influenza Type B Ag (NEGATIVE) RSV (PCR) (NEGATIVE) SARS-CoV-2 (PCR) (NEGATIVE) Slides for Path Review Microbiology 06/03/24 15:21 Blood Culture Gram Stain - Final Blood Not Reportable - Radiology Impressions Radiology Exams & Impressions: Radiology Procedures Category Date Time Status CHEST 1 VIEW (PORTABLE) Stat Exams 06/03/24 15:21 Completed - Other Procedures and Tests Respiratory Therapy 06/03/24 19:59 EKG REPEAT IN AM Oxygen Nasal Cannula 2 lpm Respiratory Therapy Consult ONCE 06/03/24 20:46 Respiratory MDI BID Assessment/Plan (1) Pneumonia Current Visit: No Status: Acute Assessment & Plan: IV antibiotics. Collect sputum culture if patient able to expectorate. Wean O2 as tolerated. Nebs. Will request ST eval to rule out occult dysphagia. Code(s): J18.9 - PNEUMONIA, UNSPECIFIED ORGANISM (2) Hypoxia Current Visit: Yes Status: Acute Assessment & Plan: Wean O2 as tolerated. PT eval for ambulatory O2 assessment. Code(s): R09.02 - HYPOXEMIA (3) CHF (congestive heart failure) Current Visit: Yes Status: Acute Assessment & Plan: Monitor volume status. Leg edema is chronic. Will trend BNP and continue po Lasix. Code(s): I50.9 - HEART FAILURE, UNSPECIFIED (4) Hypothyroidism Current Visit: Yes Status: Acute Assessment & Plan: Continue Synthroid. Code(s): E03.9 - HYPOTHYROIDISM, UNSPECIFIED (5) Atrial fibrillation Current Visit: No Status: Chronic Assessment & Plan: Monitor on tele. Continue Coumadin and monitor INR daily. Code(s): I48.91 - UNSPECIFIED ATRIAL FIBRILLATION Telemedicine Encounter - Telemedicine Encounter Telemedicine Encounter: "The entirety of this encounter was performed via Telemedicine" This visit was performed using real-time audio and video connection between my location and thepatients locationwith the assistance of a surrogateat the patients location. Written or verbal consent was obtained from the patient/guardian to perform this visit using[employer] technology. Any patient questions regarding the telemedicine interaction were answered. Please note that this admission required 45 minutes to complete.
[2024-06-03] MEDS ORDERED: PROVENTIL Solution 2.5 MG/0.5 ML IH ONE (21:14)
[2024-06-03] MEDS: PROVENTIL 2.5 MG/3 ML NEB IH PRN (21:19)
[2024-06-03] MEDS ORDERED: Robitussin-Dm Syrup PO PRN (22:36)
[2024-06-03] MEDS ORDERED: ZOCOR 20MG ONE (22:42)
[2024-06-03] MEDS: Mucinex 600MG ER Tabs PO SCH (22:52)
[2024-06-03] MEDS: celeBREX 100 MG PO SCH (22:52)
[2024-06-03] MEDS: ZOCOR 20MG PO SCH (23:00)
[2024-06-04 05:21] LABS: Absolute Neutrophil Ct (ANC) 5.29 x10^3/uL (1.56-6.13); BASOPHIL % 0.3 % (0.1-1.2); Basophil (Absolute #) 0.02 x10^3/uL (0.01-0.08); Eosinophil (Absolute #) 0 x10^3/uL (0.04-0.36); Hematocrit 41.4 % (34.1-44.9); Hemoglobin 13.3 g/dL (11.2-15.7); IMMATURE GRAN # 0.06 x10^3u/L (0.001-0.031); Lymphocyte (Absolute #) 0.51 x10^3/uL (1.18-3.74); Lymphocytes % 8.3 % (19.3-51.7); Mean Cell Volume 95.6 fL (79.4-94.8); Mean Corpuscular Hemoglobin 30.7 pg (25.6-32.2); Mean Corpuscular Hgb Concent. 32.1 g/dL (32.2-35.5); Mean Platelet Volume 10.1 fL (9.4-12.3); Monocyte (Absolute #) 0.27 x10^3/uL (0.24-0.86); Monocytes % 4.4 % (4.7-12.5); Platelet Count 187 x10^3/uL (182-369); Red Blood Count 4.33 x10^6/uL (3.93-5.22); Red Cell Distribution Width 13.9 % (11.7-14.4); White Blood Count 6.2 x10^3/uL (3.98-10.04)
[2024-06-04 05:37] LABS: INR 2.06 (0.8-3.0); PROTIME 21.4 SECONDS (9.4-12.5)
[2024-06-04 05:51] LABS: ALBUMIN 4.3 g/dL (3.5-5.0); ANION GAP 14.5 MEQ/L (5-15); BILIRUBIN,TOTAL 0.8 mg/dL (0.2-1.3); Calcium 8.5 mg/dL (8.4-10.2); Creatinine 1 0.65 mg/dL (0.52-1.04); EST GLOMERULAR FILTRATION RATE 85.2 ML/MIN; Potassium 4.4 mmol/L (3.5-5.1); Total Protein 7.3 g/dL (6.3-8.2)
[2024-06-04 06:53] VITALS: RESP 16
[2024-06-04] MEDS: Advair Hfa 115/21 Common canister IH SCH (07:11)
[2024-06-04 07:44] LABS: Slide Review 1 YES
[2024-06-04] MEDS: MEDROL 4 MG PO SCH ×2 (08:22→13:07)
[2024-06-04] MEDS: ROCEPHIN 1 GM / 100 ML NaCl 1 GM/100 ML IVPB IV SCH (09:52)
[2024-06-04] MEDS: SYNTHROID 75 MCG PO SCH (09:52)
[2024-06-04] MEDS: ZITHROMAX IV*** 500 MG in Sodium Chloride 0.9% 250 ML 250 ML IV SCH (09:52)
[2024-06-04] MEDS: Acidophilus TABLET PO SCH (09:53)
[2024-06-04] MEDS: LASIX 20 MG PO SCH (09:54)
[2024-06-04] MEDS: Protonix 40MG Tablet PO SCH (09:54)
[2024-06-04] MEDS: Coumadin 3 MG PO SCH (09:54)
[2024-06-04] MEDS ORDERED: LEVOTHYROXINE SODIUM 150 MCG PO SCH (10:00)
[2024-06-04] MEDS ORDERED: NON-FORMULARY ITEM (Esomeprazole Magnesium [Nexium] 40 MG Capsule.Dr) PO SCH (10:00)
[2024-06-04] MEDS ORDERED: Lasix 40 MG PO SCH (10:00)
[2024-06-04] MEDS: NON-FORMULARY ITEM (Budesonide/Formoterol Fumarate [Symbicort 160-4.5 Mcg Inhaler] 10.2 GM IH SCH (10:11)
[2024-06-04] MEDS: NON-FORMULARY ITEM (Pravastatin Sodium [Pravastatin Sodium] 20 MG Tablet) PO SCH (10:42)
[2024-06-04 11:26] VITALS: BP 133/92; PULSE 74; TEMP 97.9; O2SAT 93
--- NOTE | 2024-06-04 13:24 | PCM.DS ---
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 She presented to the ED on 06/03/24 with a several day history of dry nonproductive cough and shortness of breath. Patient was prescribed Medrol Dosepak and amoxicillin approximately 2 days ago and discharged to home from our emergency department. The patient arrived to the emergency department on 06/03/24 with room air oxygen saturation level 88%. Patient has left leg edema but this is chronic and unchanged. She denies chest pain, abdominal pain, fevers, and hemoptysis. Today pt was weaned off O2 as she only wears at baseline at night. She did well with PT and labs reviewed with pt and overall non-concerning. She reports a chronic thyroid nodule and ST discussed concern f/u OP with PCP for further evaluation. Pt reports having biopsy of this last year. She is a poor historian and unable to tell me much about this. Pt denies CP, SOB, abd.pain, N/V/D. - Vitals & Intake/Output Vital Signs: Vital Signs Temperature 97.9 F 06/04/24 11:26 Pulse Rate 74 06/04/24 11:26 Respiratory Rate 16 06/04/24 11:26 Blood Pressure 133/92 06/04/24 11:26 O2 Sat by Pulse Oximetry 93 L 06/04/24 11:26 Intake & Output: Intake & Output 06/02/24 06/03/24 06/04/24 06/05/24 11:59 11:59 11:59 11:59 Intake Total 1020 Output Total 350 Balance 670 Weight 103.4 kg - Lab Result Diagrams: 06/04/24 05:11 06/04/24 05:11 Lab Results-Last 24 Hrs: Lab Results-Last 24 Hours 06/03/24 06/03/24 06/03/24 Range/Units 15:31 15:31 15:31 WBC 8.1 (3.98-10.04) x10^3/uL RBC 4.25 (3.93-5.22) x10^6/uL Hgb 13.1 (11.2-15.7) g/dL Hct 40.6 (34.1-44.9) % MCV 95.5 H (79.4-94.8) fL MCH 30.8 (25.6-32.2) pg MCHC 32.3 (32.2-35.5) g/dL RDW 14.2 (11.7-14.4) % Plt Count 172 L (182-369) x10^3/uL MPV 10.2 (9.4-12.3) fL Gran % 88.2 H (34.0-71.1) % Immature Gran % (Auto) 0.7 H (0.001-0.429) % Nucleat RBC Rel Count 0.0 (0.00-0.2) % Eos # (Auto) 0 L (0.04-0.36) x10^3/uL Immature Gran # (Auto) 0.06 H (0.001-0.031) x10^3u/L Absolute Lymphs (auto) 0.41 L (1.18-3.74) x10^3/uL Absolute Monos (auto) 0.47 (0.24-0.86) x10^3/uL Absolute Nucleated RBC 0.00 (0.00-0.012) x10^3u/L Lymphocytes % 5.1 L (19.3-51.7) % Monocytes % 5.8 (4.7-12.5) % Eosinophils % 0.0 L (0.7-5.8) % Basophils % 0.2 (0.1-1.2) % Absolute Granulocytes 7.12 H (1.56-6.13) x10^3/uL Basophils # 0.02 (0.01-0.08) x10^3/uL PT 21.9 H (9.4-12.5) SECONDS INR 2.11 (0.8-3.0) Sodium 138 (135-145) mmol/L Potassium 3.9 (3.5-5.1) mmol/L Chloride 100 (98-107) mmol/L Carbon Dioxide 30 (22-30) mmol/L Anion Gap 11.7 (5-15) MEQ/L BUN 18 H (7-17) mg/dL Creatinine 0.64 (0.52-1.04) mg/dL Estimated GFR 85.5 ML/MIN Glucose 110 H (74-106) mg/dL Lactic Acid (0.4-2.0) Calcium 8.8 (8.4-10.2) mg/dL Magnesium 1.8 (1.6-2.3) mg/dL Total Bilirubin 0.90 (0.2-1.3) mg/dL AST 29 (14-36) U/L ALT 15 (0-35) U/L Alkaline Phosphatase 65 (38-126) U/L Troponin I (0.000-0.033) ng/mL NT-Pro-B Natriuret Pep 789 (<300) pg/mL Serum Total Protein 6.9 (6.3-8.2) g/dL Albumin 4.2 (3.5-5.0) g/dL Procalcitonin (0.030-0.080) ng/mL Influenza Type A Ag (NEGATIVE) Influenza Type B Ag (NEGATIVE) RSV (PCR) (NEGATIVE) SARS-CoV-2 (PCR) (NEGATIVE) Slides for Path Review YES 06/03/24 06/03/24 06/03/24 Range/Units 15:31 15:42 15:55 WBC (3.98-10.04) x10^3/uL RBC (3.93-5.22) x10^6/uL Hgb (11.2-15.7) g/dL Hct (34.1-44.9) % MCV (79.4-94.8) fL MCH (25.6-32.2) pg MCHC (32.2-35.5) g/dL RDW (11.7-14.4) % Plt Count (182-369) x10^3/uL MPV (9.4-12.3) fL Gran % (34.0-71.1) % Immature Gran % (Auto) (0.001-0.429) % Nucleat RBC Rel Count (0.00-0.2) % Eos # (Auto) (0.04-0.36) x10^3/uL Immature Gran # (Auto) (0.001-0.031) x10^3u/L Absolute Lymphs (auto) (1.18-3.74) x10^3/uL Absolute Monos (auto) (0.24-0.86) x10^3/uL Absolute Nucleated RBC (0.00-0.012) x10^3u/L Lymphocytes % (19.3-51.7) % Monocytes % (4.7-12.5) % Eosinophils % (0.7-5.8) % Basophils % (0.1-1.2) % Absolute Granulocytes (1.56-6.13) x10^3/uL Basophils # (0.01-0.08) x10^3/uL PT (9.4-12.5) SECONDS INR (0.8-3.0) Sodium (135-145) mmol/L Potassium (3.5-5.1) mmol/L Chloride (98-107) mmol/L Carbon Dioxide (22-30) mmol/L Anion Gap (5-15) MEQ/L BUN (7-17) mg/dL Creatinine (0.52-1.04) mg/dL Estimated GFR ML/MIN Glucose (74-106) mg/dL Lactic Acid 2.0 (0.4-2.0) Calcium (8.4-10.2) mg/dL Magnesium (1.6-2.3) mg/dL Total Bilirubin (0.2-1.3) mg/dL AST (14-36) U/L ALT (0-35) U/L Alkaline Phosphatase (38-126) U/L Troponin I < 0.012 (0.000-0.033) ng/mL NT-Pro-B Natriuret Pep (<300) pg/mL Serum Total Protein (6.3-8.2) g/dL Albumin (3.5-5.0) g/dL Procalcitonin (0.030-0.080) ng/mL Influenza Type A Ag NEGATIVE (NEGATIVE) Influenza Type B Ag NEGATIVE (NEGATIVE) RSV (PCR) NEGATIVE (NEGATIVE) SARS-CoV-2 (PCR) NEGATIVE (NEGATIVE) Slides for Path Review 06/03/24 06/03/24 06/04/24 Range/Units 19:10 23:10 05:11 WBC (3.98-10.04) x10^3/uL RBC (3.93-5.22) x10^6/uL Hgb (11.2-15.7) g/dL Hct (34.1-44.9) % MCV (79.4-94.8) fL MCH (25.6-32.2) pg MCHC (32.2-35.5) g/dL RDW (11.7-14.4) % Plt Count (182-369) x10^3/uL MPV (9.4-12.3) fL Gran % (34.0-71.1) % Immature Gran % (Auto) (0.001-0.429) % Nucleat RBC Rel Count (0.00-0.2) % Eos # (Auto) (0.04-0.36) x10^3/uL Immature Gran # (Auto) (0.001-0.031) x10^3u/L Absolute Lymphs (auto) (1.18-3.74) x10^3/uL Absolute Monos (auto) (0.24-0.86) x10^3/uL Absolute Nucleated RBC (0.00-0.012) x10^3u/L Lymphocytes % (19.3-51.7) % Monocytes % (4.7-12.5) % Eosinophils % (0.7-5.8) % Basophils % (0.1-1.2) % Absolute Granulocytes (1.56-6.13) x10^3/uL Basophils # (0.01-0.08) x10^3/uL PT 21.4 H (9.4-12.5) SECONDS INR 2.06 (0.8-3.0) Sodium (135-145) mmol/L Potassium (3.5-5.1) mmol/L Chloride (98-107) mmol/L Carbon Dioxide (22-30) mmol/L Anion Gap (5-15) MEQ/L BUN (7-17) mg/dL Creatinine (0.52-1.04) mg/dL Estimated GFR ML/MIN Glucose (74-106) mg/dL Lactic Acid (0.4-2.0) Calcium (8.4-10.2) mg/dL Magnesium (1.6-2.3) mg/dL Total Bilirubin (0.2-1.3) mg/dL AST (14-36) U/L ALT (0-35) U/L Alkaline Phosphatase (38-126) U/L Troponin I < 0.012 < 0.012 (0.000-0.033) ng/mL NT-Pro-B Natriuret Pep (<300) pg/mL Serum Total Protein (6.3-8.2) g/dL Albumin (3.5-5.0) g/dL Procalcitonin (0.030-0.080) ng/mL Influenza Type A Ag (NEGATIVE) Influenza Type B Ag (NEGATIVE) RSV (PCR) (NEGATIVE) SARS-CoV-2 (PCR) (NEGATIVE) Slides for Path Review 06/04/24 06/04/24 06/04/24 Range/Units 05:11 05:11 05:14 WBC 6.2 (3.98-10.04) x10^3/uL RBC 4.33 (3.93-5.22) x10^6/uL Hgb 13.3 (11.2-15.7) g/dL Hct 41.4 (34.1-44.9) % MCV 95.6 H (79.4-94.8) fL MCH 30.7 (25.6-32.2) pg MCHC 32.1 L (32.2-35.5) g/dL RDW 13.9 (11.7-14.4) % Plt Count 187 (182-369) x10^3/uL MPV 10.1 (9.4-12.3) fL Gran % 86.0 H (34.0-71.1) % Immature Gran % (Auto) 1.0 H (0.001-0.429) % Nucleat RBC Rel Count 0.0 (0.00-0.2) % Eos # (Auto) 0 L (0.04-0.36) x10^3/uL Immature Gran # (Auto) 0.06 H (0.001-0.031) x10^3u/L Absolute Lymphs (auto) 0.51 L (1.18-3.74) x10^3/uL Absolute Monos (auto) 0.27 (0.24-0.86) x10^3/uL Absolute Nucleated RBC 0.00 (0.00-0.012) x10^3u/L Lymphocytes % 8.3 L (19.3-51.7) % Monocytes % 4.4 L (4.7-12.5) % Eosinophils % 0.0 L (0.7-5.8) % Basophils % 0.3 (0.1-1.2) % Absolute Granulocytes 5.29 (1.56-6.13) x10^3/uL Basophils # 0.02 (0.01-0.08) x10^3/uL PT (9.4-12.5) SECONDS INR (0.8-3.0) Sodium 139 (135-145) mmol/L Potassium 4.4 (3.5-5.1) mmol/L Chloride 99 (98-107) mmol/L Carbon Dioxide 30 (22-30) mmol/L Anion Gap 14.5 (5-15) MEQ/L BUN 16 (7-17) mg/dL Creatinine 0.65 (0.52-1.04) mg/dL Estimated GFR 85.2 ML/MIN Glucose 118 H (74-106) mg/dL Lactic Acid (0.4-2.0) Calcium 8.5 (8.4-10.2) mg/dL Magnesium (1.6-2.3) mg/dL Total Bilirubin 0.80 (0.2-1.3) mg/dL AST 31 (14-36) U/L ALT 16 (0-35) U/L Alkaline Phosphatase 60 (38-126) U/L Troponin I (0.000-0.033) ng/mL NT-Pro-B Natriuret Pep 1150 (<300) pg/mL Serum Total Protein 7.3 (6.3-8.2) g/dL Albumin 4.3 (3.5-5.0) g/dL Procalcitonin 0.056 (0.030-0.080) ng/mL Influenza Type A Ag (NEGATIVE) Influenza Type B Ag (NEGATIVE) RSV (PCR) (NEGATIVE) SARS-CoV-2 (PCR) (NEGATIVE) Slides for Path Review YES - Radiology Exams Ordered Rad Exams-Entire Visit: Radiology Procedures Category Date Time Status CHEST 1 VIEW (PORTABLE) Stat Exams 06/03/24 15:21 Completed - Procedures and Test Procedures and Tests throughout Hospitalization: Therapy Orders & Screens 06/03/24 19:59 EKG REPEAT IN AM Comment: Oxygen Nasal Cannula 2 lpm Comment: Respiratory Therapy Consult ONCE Comment: Reason For Exam: 06/03/24 20:37 PT Eval & Treat ( Order) ONCE Reason for Eval:: ambulatory oxygen assessment Diagnosis: pneumonia 06/03/24 20:38 ST Eval & Treat (MD Order) ROUTINE Comment: Physician Instructions: Reason For Exam: Evaluate: Yes Treat: Yes Reason for Eval: pneumonia. rule out aspiration Diagnosis: pneumonia 06/03/24 20:46 Respiratory MDI BID Comment: Diagnosis: pneumonia 06/03/24 21:45 Respiratory Therapy Assessment DAILY Comment: Diagnosis: pneumonia 06/04/24 07:37 RT Miscellaneous Order ROUTINE Comment: Physician Instructions: Reason For Exam: wean O2, wears 2lNC @ night baseline Diagnosis: pneumonia Discharge Exam General Appearance: no apparent distress, alert, obese Neurologic Exam: alert, oriented x 3, cooperative, normal mood/affect, nml cerebellar function, sensation nml, No motor deficits Eye Exam: PERRL, EOMI, eyes nml inspection Ears, Nose, Throat Exam: normal ENT inspection, pharynx normal, moist mucous membranes Neck Exam: normal inspection, non-tender, supple, full range of motion Respiratory Exam: normal breath sounds, lungs clear, No respiratory distress Cardiovascular Exam: regular rate/rhythm, normal heart sounds Gastrointestinal/Abdomen Exam: soft, No tenderness, No mass Pelvic Exam: deferred Rectal Exam: deferred Back Exam: normal inspection, normal range of motion, No CVA tenderness, No vertebral tenderness Extremity Exam: normal inspection, normal range of motion Skin Exam: normal color, warm, dry Final Diagnosis/Problem List - Final Discharge Diagnosis/Problem (1) Bilateral pneumonia Current Visit: Yes Status: Acute Code(s): J18.9 - PNEUMONIA, UNSPECIFIED ORGANISM (2) Hypoxia Current Visit: Yes Status: Acute Code(s): R09.02 - HYPOXEMIA (3) CHF (congestive heart failure) Current Visit: Yes Status: Acute Code(s): I50.9 - HEART FAILURE, UNSPECIFIED (4) Hypothyroidism Current Visit: Yes Status: Acute Code(s): E03.9 - HYPOTHYROIDISM, UNSPECIFIED (5) Atrial fibrillation Current Visit: No Status: Chronic Assessment & Plan: (1) Pneumonia Current Visit: No Status: Acute Assessment & Plan: IV antibiotics. Collect sputum culture if patient able to expectorate. Wean O2 as tolerated. Nebs. Will request ST eval to rule out occult dysphagia. Code(s): J18.9 - PNEUMONIA, UNSPECIFIED ORGANISM (2) Hypoxia Current Visit: Yes Status: Acute Assessment & Plan: Wean O2 as tolerated. PT eval for ambulatory O2 assessment. Code(s): R09.02 - HYPOXEMIA (3) CHF (congestive heart failure) Current Visit: Yes Status: Acute Assessment & Plan: Monitor volume status. Leg edema is chronic. Will trend BNP and continue po Lasix. Code(s): I50.9 - HEART FAILURE, UNSPECIFIED (4) Hypothyroidism Current Visit: Yes Status: Acute Assessment & Plan: Continue Synthroid. Code(s): E03.9 - HYPOTHYROIDISM, UNSPECIFIED (5) Atrial fibrillation Current Visit: No Status: Chronic Assessment & Plan: Monitor on tele. Continue Coumadin and monitor INR daily. Code(s): I48.91 - UNSPECIFIED ATRIAL FIBRILLATION Code(s): I48.91 - UNSPECIFIED ATRIAL FIBRILLATION (6) Morbid obesity with BMI of 40.0-44.9, adult Current Visit: No Status: Chronic Assessment & Plan: - advised diet and exercise control Code(s): E66.01 - MORBID (SEVERE) OBESITY DUE TO EXCESS CALORIES; Z68.41 - BODY MASS INDEX [BMI] 40.0-44.9, ADULT (7) Thyroid nodule Current Visit: Yes Status: Chronic Assessment & Plan: - ST eval - F/U OP with PCP for further evaluation Code(s): E04.1 - NONTOXIC SINGLE THYROID NODULE - Discharge Discharge Date: 06/04/24 Disposition: Home, Self-Care Condition: Fair Prescriptions: Continue Esomeprazole Magnesium [Nexium] 20 mg PO DAILY Levothyroxine Sodium 150 Mcg [Synthroid 150 Mcg] 150 mcg PO DAILY Pravastatin Sodium 80 mg PO HS Furosemide 40 mg [Lasix 40 MG] 20 mg PO DAILY Albuterol Sulfate Mdi [ALBUTEROL/Proair Hfa MDI] 8.5 gm IH QID Budesonide/Formoterol Fumarate [Symbicort 160-4.5 Mcg Inhaler] 10.2 gm IH BID Celecoxib 100 mg [celeBREX 100 MG] 200 mg PO BID #0 Warfarin Sodium 3 mg [Coumadin 3 MG] 6 mg PO DAILY Amoxicillin 500 mg Cap [Amoxil 500 mg] 500 mg PO TID #30 cap Methylprednisolone Packet [Medrol Dosepack] 4 mg PO UD #21 packet Albuterol 2.5 mg/3 ml Neb [Proventil 2.5 mg/3 ml Neb] 2.5 mg IH QID PRN 30 Days #30 amp PRN Reason: Shortness Of Breath/Wheezing Follow up with: DAREN JAIN MD [Primary Care Provider] -
[2024-06-04] MEDS ORDERED: MEDROL 4 MG PO SCH ×2 (18:30→22:00)
[2024-06-05] MEDS ORDERED: MEDROL 4 MG PO SCH (07:30)
[2024-06-06] MEDS ORDERED: MEDROL 4 MG PO SCH (22:00)
== END 2024-06-04 14:20 | disposition home or self-care (01) ==
LOC: ED 14:22 → MED SURG 19:53
PROVIDERS: ADMIT Internal Medicine; ATTEND Internal Medicine
DX: J18.9 Pneumonia, unspecified organism (principal); R09.02 Hypoxemia; I11.0 Hypertensive heart disease with heart failure; I50.9 Heart failure, unspecified; E03.9 Hypothyroidism, unspecified; I48.91 Unspecified atrial fibrillation; E04.1 Nontoxic single thyroid nodule; J44.9 Chronic obstructive pulmonary disease, unspecified; K21.9 Gastro-esophageal reflux disease without esophagitis; E78.5 Hyperlipidemia, unspecified; R60.0 Localized edema; Z79.01 Long term (current) use of anticoagulants; Z79.899 Other long term (current) drug therapy; Z68.41 Body mass index [BMI] 40.0-44.9, adult
CPT/HCPCS: 0241U; 36415; 71045; 80053; 83605; 83735; 83880; 84145; 84484; 85025; 85610; 87040; 92610; 93005; 93041; 94640; 94760; 96374; 97162; 99291; G0378; Q3014; 99285; J0456; J0696; J2919; J7609; A9270-GY